=== PATIENT | female | born 1990 | race Caucasian/White ===

== ENCOUNTER 2023-03-25 22:08 | Outpatient (REF) | payer OTHER, MEDICAID, SELFPAY ==
[2023-03-30 18:07] LABS: Age Gdln ACOG Testing Note (.); HPV Aptima Negative (Negative); IGP, Aptima HPV, rfx 16/18,45 Note (.)
== END 2023-03-25 22:09 | disposition home or self-care (01) ==
LOC: LAB 22:08
PROVIDERS: Visit Provider Obstetrics & Gynecology
DX: Z12.4 Encounter for screening for malignant neoplasm of cervix (principal)
CPT/HCPCS: 87624; G0145

== ENCOUNTER 2023-03-31 10:32 | Outpatient (OUT) | payer OTHER, MEDICAID, SELFPAY ==
--- NOTE | 2023-03-31 10:33 | US_ITS ---
The [address] [address] Patient Name: VALE LINDA MRN: [id number] date: 1990 Sex: F Assigned Patient Location: US Current Patient Location: US Accession/Order Number: [id number] Exam Date: 03/31/2023 10:40 Report Date: 03/31/2023 12:46 At the request of: ANDREY JAY Procedure: US pelvis transvaginal EXAM: US pelvis transvaginal INDICATION: ABNORMAL UTERINE BLEEDING. VIEW FOR IUD. N93.9 COMPARISON: No prior pelvic ultrasound available for comparison at the time of this dictation. TECHNIQUE: Transvaginal ultrasound with grayscale, color Doppler and spectral Doppler imaging. FINDINGS: Uterus:8.9 x 5.1 x 4.9 cm. Grossly normal myometrial echotexture. Intrauterine device in satisfactory position. Endometrium:0.8 cm Right ovary: 3.1 x 2.2 x 2.0 cm. Volume: 7.1 cc Left ovary: 3.7 x 3.0 x 1.6cm. Volume: 9.3 cc Normal appearing follicles bilaterally with dominant follicle in the left ovary. Normal color Doppler with arterial/venous spectral tracing to both ovaries. No free fluid in the cul-de-sac. US/US pelvis transvaginal IMPRESSION: 1. IUD in satisfactory position. The pelvic ultrasound is otherwise grossly unremarkable. Electronically authenticated by: KAR CRAFT Date: 03/31/2023 12:46
== END 2023-03-31 10:33 | disposition home or self-care (01) ==
LOC: US 10:32
PROVIDERS: Visit Provider Obstetrics & Gynecology
DX: N93.9 Abnormal uterine and vaginal bleeding, unspecified (principal); Z97.5 Presence of (intrauterine) contraceptive device
CPT/HCPCS: 76830

== ENCOUNTER 2024-03-30 19:51 | Outpatient (REF) | payer MEDICAID, SELFPAY ==
[2024-04-05 12:08] LABS: Age Gdln ACOG Testing Note (.); HPV Aptima Negative (Negative); IGP, Aptima HPV, rfx 16/18,45 Note (.)
== END 2024-03-30 19:52 | disposition home or self-care (01) ==
LOC: LAB 19:51
PROVIDERS: Visit Provider Obstetrics & Gynecology
DX: Z01.419 Encounter for gynecological examination (general) (routine) without abnormal findings (principal)
CPT/HCPCS: 87624; 88175

== ENCOUNTER 2025-06-20 19:14 | Outpatient (REF) | payer MEDICAID, SELFPAY ==
--- OUTSIDE RECORDS SUMMARY | 2025-06-20 19:17 | XMS_ITS | CCD ---
Author Organization [facility] ion Partnership [facility] Care Team Providers Care Electrical Assistant Name Role Phone DO Kemal Davis Attending Provider [phone] Danielito Gregory DO Primary Care Provider Danielito Gregory DO Primary Care Provider ALYSSA MELENDEZ Attending Unavailable ALYSSA MELENDEZ Admitting Unavailable DANIELITO GREGORY Primary Care Unavailabl e BRI, DANIELITO GORE Primary Care Unavailabl e BRI, DANIELITO GORE Primary Care Unavailabl e BRI, DANIELITO GORE Referring Unavailabl e BRI, DANIELITO GORE Primary Care Unavailabl e SUDHEER MCPHERSON Attending Unavailable BRI, DANIELITO GORE Primary Care Unavailabl e SUDHEER MCPHERSON Referring Unavailable ALYSSA MELENDEZ Attending Unavailable BRI, DANIELITO GORE Primary Care Unavailabl e MELENDEZALYSSA Referring Unavailable BRI, DANIELITO GORE Primary Care Unavailabl e ALYSSA MELENDEZ Attending Unavailable BRI, DANIELITO GORE Primary Care Unavailabl e BRI, DANIELITO GORE Primary Care Unavailabl e MELENDEZALYSSA Attending Unavailable MCPHERSONSUDHEER HO Attending Unavailable DANIELITO GREGORY Primary Care Unavailabl e Danielito Gregory DO Primary Care Provider Danielito Gregory MD Primary Care Provider Danielito Gregory DO Primary Care Provider [phone] Danielito Gregory DO Referring Provider Darryn MUSTAFA, Que Kaufman Attending Provider Danielito Gregory Admitting Unavailable Danielito Gregory Attending Unavailable Calderon Webber Referring Unavailable DolCalderon atkins Admitting Unavailable Dolchuck, Calderon Hinton Attending Unavailable Calderon Webber Admitting Unavailable Dolchuck, Calderon Hinton Attending Unavailable Danielito Gregory Referring Unavailable Danielito Gregory Primary Care Unavailable Que Cates Attending Unavailable Que Cates Admitting Unavailable DOLCHUCK, CALDERON Hinton Attending Unavailable DOLCHUCK, CALDERON Hinton Attending Unavailable MAURO GUEVARA Attending Unavailable DOLCHUCK, CALDERON Hinton Attending Unavailable DOLCHUCK, CALDERON Hinton Referring Unavailable DOLCE, CALDERON Hinton Referring Unavailable DOLCE, CALDERON Hinton Attending Unavailable DOLCHUCK, CALDERON Hinton Attending Unavailable DOLCHUCK, CALDERON Hinton Attending Unavailable DOLCHUCK, CALDERON Hinton Attending Unavailable DOLCHUCK, CALDERON Hinton Attending Unavailable DOLCHUCK, CALDERON Hinton Attending Unavailable Danielito Gregory MD Primary Care Provider [phone] Calderon Webber Attending Unavailable Calderon Webber Admitting Unavailable Medications Current Medications MedicationDrug Class(es)DatesSig (Normalized)Sig (Original)fluorouracil 50 mg/ml topical cream (5 sources)Nucleoside Metabolic InhibitorStart: 05-11-2024 End: 26-58-6279RPThuadaaz 40 mg oral capsule (20 sources)Serotonin Reuptake InhibitorStart: 15-18-7267ftgk 1 capsule by mouth once dailyFluoxetine 40 mg capsule Active 40 MG PO Daily August 09, 2024 1:00amStart: 89-25-0994zisg 1 capsule by mouth onceFLUoxetine (PROZAC) 20 mg capsule Take 1 capsule by mouth every afternoon. 02/17/2023 Activetake 1 capsule by mouth in the morningFLUoxetine (PROzac) 20 MG capsule Take 1 capsule by mouth in the morning. ActiveComment on above:Take 1 capsule by mouth every afternoon. levothyroxine sodium 0.2 mg oral tablet (20 sources)l-ThyroxineStart: 07-13-2023 End: 52-28-9798srnh 1 tablet by mouth once dailyLevothyroxine 200 mcg tablet Active 200 MCG PO Daily August 09, 2024 1:00amStart: 03-16-2023 End: 38-96-2199ejltnxfpdshjz (Synthroid, Levoxyl) 175 MCG tablet Take 175 mcg by mouth. 03/16/2023 ActiveComment on above:Take 1 tablet by mouth DAILY (6 AM). methylphenidate hydrochloride 20 mg oral tablet (20 sources)Central Nervous System StimulantStart: 10-19-3709wfjr 1 tablet by mouth once dailyMethylphenidate Hcl 20 mg tablet Active 20 MG PO Daily August 09, 2024 1:00ammethylPREDNISolone 4 mg oral tablet (2 sources)CorticosteroidStart: 04-27-2024 End: 31-00-6442cpbm 1 tablet by mouth oncemethylPREDNISolone (Medrol Dospak) 4 MG tablets Indications: Acute Bursitis Take 1 tablet (4 mg) bymouth 1 (one) time for 1 dose Follow schedule on package instructions 1 each 04/27/2024 04/27/2024 ActivePrenatal Vit-Iron Fum-Folic Ac (1 source)Start: 67-26-3143biuu 1 tablet by mouth once daily before mealtime Vit-Iron Fum-Folic Ac Active 1 TAB PO Daily July 28, 2021 1:00am Completed/Discontinued Medications MedicationDrug Class(es)DatesSig (Normalized)Sig (Original)acetaminophen 325 mg / HYDROcodone bitartrate 5 mg oral tablet (4 sources)Opioid AgonistStart: 01-17-2019 End: 83-33-5479kurj 1 tablet by mouth every six hours as needed for pain Hydrocodone-Acetaminophen ([place]) 5-325 mg tablet Discontinued 1 TAB PO Q6H as needed for pain 2018July 28, 2021 11:34pmBenzocaine (1 source)Standardized Chemical AllergenStart: 03-03-2023 End: 43-61-9998kvxjruhsjq 20% 2 [place] (TOPEX)cholecalciferol 0.125 mg oral tablet (4 sources)Vitamin DStart: 01-17-2019 End: 71-38-9664ysgj 3 tablets by mouth once dailyCholecalciferol (Vitamin D3) (Vitamin D3) 5,000 unit Tablet Discontinued 84362 UNIT PO Daily January 17, 2019 12:00am July 28, 2021 11:34pmdocusate sodium 100 mg oral capsule (8 sources)Start: 07-31-2021 End: 93-48-2060qggi 1 capsule by mouth once dailyDocusate Sodium (Colace) 100 mg Capsule Discontinued 100 MG PO Daily July 31, 2021 1:00am August 09, 2024 6:17pmStart: 10-06-2018 End: 62-01-9514dycd 1 capsule by mouth twice daily as needed for constipation Docusate Sodium (Colace) 100 mg capsule Discontinued 100 MG PO Twice daily as needed for constipation 60 October 06, 2018 7:53am January 17, 2019 1:10pmferrous sulfate 325 mg oral tablet (4 sources)Start: 07-28-2021 End: 67-12-9366frck 1 tablet by mouth once dailyFerrous Sulfate 325 mg (65 mg iron) Tablet Discontinued 1 MG PO Daily July 28, 2021 1:00am August 09, 2024 6:17pmibuprofen 600 mg oral tablet (8 sources)Nonsteroidal Anti-inflammatory DrugStart: 07-31-2021 End: 63-04-1597uguw 1 tablet by mouth every six hours as needed for pain Ibuprofen 600 mg Tablet Discontinued 600 MG PO Q6H as needed for Pain July 31, 2021 1:00amAugust 09, 2024 6:17pmStart: 10-06-2018 End: 55-20-6785rpmg 1 tablet by mouth every six hours as needed for pain Ibuprofen 600 mg tablet Discontinued 600 MG PO Q6H as needed for pain October 06, 2018 1:00am July 28, 2021 11:34pmlidocaine hydrochloride 20 mg/ml mucous membrane topical solution (1 source)Antiarrhythmic, Amide Local AnestheticStart: 03-03-2023 End: 05-61-8656rvrdwqapq viscous 2 % 10 mL (XYLOCAINE)magnesium oxide 400 mg oral tablet (4 sources)Start: 01-17-2019 End: 85-74-4680Zqhxwdvyf Oxide 400 mg magnesium tablet Discontinued TABLET January 17, 2019 12:00am July 28, 2021 11:35pmStart: 01-17-2019 End: 67-39-2896Rwycbzlna Oxide Discontinued TABLET January 17, 2019 12:00am July 28, 2021 11:35pmModified Lanolin (Lanolin (Hpa)) 100 % Cream (4 sources)Start: 07-31-2021 End: 28-50-3706Krjdxbnr Lanolin (Lanolin (Hpa)) 100 % Cream Discontinued 1 APPLIC TOPICAL PRN as needed for Discomfort July 31, 2021 1:00am August 09, 2024 6:17pmStart: 85-73-0916Htabombs Lanolin (Lanolin (Hpa)) 100 % Cream Active 1 APPLIC TOPICAL PRN as needed for Discomfort July 31, 2021 12:00am Start: 11-29-8496Dkywpcib Lanolin (Lanolin (Hpa)) 100 % Cream Active 1 APPLIC TOPICAL PRN July 31, 2021 1:00amPrenatal Vit-Iron Fum-Folic Ac 65 mg iron- 1 mg Tablet (3 sources)Start: 07-28-2021 End: 88-12-3191pegk 1 tablet by mouth once daily before mealtimePrenatal Vit- Iron Fum-Folic Ac 65 mg iron- 1 mg Tablet Discontinued 1 TAB PO Daily July 28, 2021 1:00am August 09, 2024 6:17pmStart: 87-38-1056tsio 1 tablet by mouth once daily before mealtimePrenatal Vit-Iron Fum-Folic Ac 65 mg iron- 1 mg Tablet Active 1 TAB PO Daily July 28, 2021 12:00amtraMADol hydrochloride 50 mg oral tablet (4 sources)Opioid AgonistStart: 10-06-2018 End: 17-18-8715wzhq 1 tablet by mouth every four to six hours as needed for pain Tramadol 50 mg tablet Discontinued 50 MG PO EVERY 4-6 HOURS as needed for pain 01 03October 06, 20181:00am January 17, 2019 1:10pm Problems Active Problems Problem ClassificationProblemDateDocumented DateEpisodic/ChronicAnxiety disorders (14 sources)Anxiety; Translations: [Anxiety disorder, unspecified]Onset: 183965-18-8505MinlgviZgkgnxxse-ikybzoz, conduct, and disruptive behavior disorders (9 sources)Attention deficit hyperactivity disorder; Translations: [Attention- deficit hyperactivity disorder, unspecified type]Onset: ChronicCancer of thyroid (9 sources)Papillary thyroid carcinoma; Translations: [Malignant neoplasm of thyroid gland]Onset: 80-97-3775OdgfrcaAnpialfewshig of surgical procedures or medical care (20 sources)Postoperative hypothyroidism; Translations: [Postprocedural hypothyroidism]Onset: 293692-83-3049HkczmwiMropstexr usually diagnosed in infancy, childhood, or adolescence (4 sources)Attention deficit hyperactivity disorder, predominantly inattentive type; Translations: [Other specified behavioral and emotional disorders with onset usually occurring in childhood and adolescence]56-61-3858MddminzWjzts disorders and dislocations; trauma-related (20 sources)Disorder of right patellofemoral joint; Translations: [Patellofemoral disorders, right knee]Onset: 264076-10-3360Zongcjy Malposition; malpresentation (4 sources)Delivery by section for breech presentation; Translations: [Maternal care for breech presentation, not applicable or unspecified]07-30-2021 EpisodicComment on above:Problem List clean-up per request of Phys. EHR Cmte Neoplasms of unspecified nature or uncertain behavior (1 source)Neoplasm of uncertain behavior of skin; Translations: [Neoplasm of uncertain behavior of skin]08-57-6696MvrehfipQjdnjrkvjqebuz (2 sources)Arthritis of left ankle; Translations: [Primary osteoarthritis, left ankle and foot]45-36-1376ViamfbbBbknx acquired deformities (2 sources)Contracture of joint of left ankle; Translations: [Contracture, left ankle]80-15-4003KsgordpAxurf and unspecified benign neoplasm (1 source)Benign tumor of unknown origin; Translations: [Benign neoplasm, unspecified site]74-11-9960VznithdpWmpib connective tissue disease (3 sources)Pain in left foot; Translations: [Pain in left foot]05-11-2024 EpisodicOther connective tissue disease (15 sources)Nontraumatic rupture of tibialis posterior tendon; Translations: [Spontaneous rupture of other tendons, left ankle and foot]10-29-5162Iiwqwmad Other connective tissue disease (2 sources)Pain in right foot; Translations: [Pain in right foot]04-27-2024 EpisodicOther connective tissue disease (2 sources)Enthesopathy of lower limb; Translations: [Other enthesopathy of left foot and ankle]24-70-7989IwxfiglxWitxj female genital disorders (4 sources)History of past delivery; Translations: [Status post vaginal delivery]37-79-9065AmazhrcdEwqxrdb on above:Problem List clean-up per request of Phys. EHR CmteOther non-traumatic joint disorders (14 sources)Instability of joint of left ankle; Translations: [Other instability, left ankle]00-44-4670VcgmpmaiWapju non-traumatic joint disorders (2 sources)Sinus tarsi syndrome of left ankle; Translations: [Pain in left ankle and joints of left foot]14-19-5327HfofdtqoHaorx nutritional; endocrine; and metabolic disorders (9 sources)Obesity; Translations: [Obesity, unspecified]Onset: 03-06-2023 62-86-9338GqgdrxgSnzky nutritional; endocrine; and metabolic disorders (20 sources)Obese class II; Translations: [Obesity, unspecified]Onset: 356654-92-3655KolpdzoLjvtv nutritional; endocrine; and metabolic disorders (1 source)Body mass index 30+ - obesity; Translations: [Body mass index (BMI) 39.0-39.9, adult]36-40-5174VifkqemRflsp nutritional; endocrine; and metabolic disorders (2 sources)Body mass index (BMI) 39.0-39.9, adult; Translations: [Body Mass Index 39.0-39.9, adult]67-65-5826JthbfnpDbruazcl codes; unclassified (2 sources)Obstructive sleep apnea syndrome; Translations: [Obstructive sleep apnea (adult) (pediatric)]81-63-6647VpqgdtmZesplsld codes; unclassified (4 sources)Obstructive sleep apnea (adult) (pediatric); Translations: [Obstructive sleep apnea (adult)(pediatric)]Onset: hronic Residual codes; unclassified (2 sources)H/O: depression; Translations: [Personal history of other complications of , childbirth and the puerperium]66-00-1836Phptepfp Thyroid disorders (20 sources)Goiter; Translations: [Nontoxic goiter, unspecified]Onset: 832128-67-1163IsmjqwfScqpa infection (1 source)Verruca plantaris; Translations: [Plantar wart]57-64-0086Qvidpclt Past or Other Problems Problem ClassificationProblemDateDocumented DateEpisodic/ChronicImmunizations and screening for infectious disease (2 sources)Patient encounter status; Translations: [Encounter for screening for infections with a predominantly sexual mode of transmission]02-03-0503Zwenfdjg Other upper respiratory infections (20 sources)Sore throat symptom; Translations: [Acute pharyngitis, unspecified] Onset: 430878-06-0269CrqkpwnlMwbw-; endo-; and myocarditis; cardiomyopathy (except that caused by tuberculosis or sexually transmitted disease) (9 sources)Pericarditis; Translations: [Disease of pericardium, unspecified] Onset: 340915-71-6385DukurczdEldpbdv tract infections (20 sources)Urinary tract infectious disease; Translations: [Urinary tract infection, site not specified]Onset: 012350-43-1234Qrupawjp Results Test NameValueInterpretationReference RangeFacilityNonvisit Note - PTon 37-55-3823Aysuhiuf Note - PTNonvisit Note - PT chart reviewed with eval prepped for scheduled eval. KKNoalUniversity Hospitals Health SystemBMPon 15-48-3477Hitfv gap [Moles/Vol]11 mmol/LNormal6-16[facility] Health SystemComment on above:Performed By: #### [id number] #### [facility] [address], [place] [address]Fnjnqsc [Mass/Vol]8.8 mg/dLLow8.9-11.1FParkview HealthComment on above:Performed By: #### [id number] #### [facility] [address], [place] [address]Amkszeph [Moles/Vol]103 mmol/DGmbrcw525-682UsesfrUniversity Hospitals Health SystemComment on above:Performed By: #### [id number] #### [facility] [address], [place] [address]CL7 [Moles/Vol]26 mmol/ELwjozo09-33HffjspUniversity Hospitals Health System Comment on above:Performed By: #### [id number] #### [facility] [address], [place] [address]Icmtuktsmv [Mass/Vol]0.6 mg/dLNormal0.5-1.3FParkview HealthComment on above:Performed By: #### [id number] #### [facility] [address], [place] [address]Tznmctu [Mass/Vol]75 mg/tXYykxfl97-283FokfpzUniversity Hospitals Health SystemComment on above:Performed By: #### [id number] #### [facility] [address], [place] [address]Dnflqzfub [Moles/Vol]4.0 mmol/LNormal3.5-5.3FParkview HealthComment on above:Performed By: #### [id number] #### [facility] [address] [place] [address]Wjlsfy [Moles/Vol]136 mmol/RJkampc368-336IjmpirUniversity Hospitals Health SystemComment on above:Performed By: #### [id number] #### [facility] [address] [place] [address]Akmr nitrogen [Mass/Vol]10 mg/dLNormal5-21[facility] Hospitals Health SystemComment on above:Performed By: #### [id number] #### [facility] [address] [place] [address]Fyep nitrogen/Creatinine [Mass ratio]17 No TkfnsAoffkz55-64 [facility]als Health SystemComment on above:Performed By: #### [id number] #### [facility] [address] [place] [address]30[address]SQT w/ Auto Diffon 95-54-4222Lfdhmtpdk/100 WBC (Bld)0.2 %Normal 0.0-2.0[facility]delet HealthComment on above:Performed By: #### [id number] #### [facility] [address] [place] [address]28[address]Ewqxlloiq/Leukocytes Auto (Bld) [Pure # fraction]0.0 E9/LNormal 0.0-0.2FParkview HealthComment on above:Performed By: #### [id number] #### [facility] [address] [place] [address] 365[address]Cvygwuczudr (Bld) [#/Vol]0.2 E9/LNormal0.0-0.5FParkview HealthComment on above:Performed By: #### [id number] #### [facility] [address] [place] [address] 370[address]Rrzucfasrhk/100 WBC (Bld)3.0 %Normal0.0-8.0[facility]als Health SystemComment on above:Performed By: #### [id number] #### [facility] [address] [place] [address] 84[address]Gtzlmgsawzf distribution width (RBC) [Ratio]13.7 %Normal 10.9-14.2NOMS HealthcareComment on above:Performed By: #### [id number] #### [facility] [address] [place] [address]Buaffklbue (Bld) [Volume fraction]38.8 %Ysaikr34.0-46.0NOMS HealthcareComment on above:Performed By: #### [id number] #### [facility] [address] [place] [address] 27[address]Ypkxzogpse (Bld) [Mass/Vol]12.9 g/hDExidps01.0-16.0[facility] Health SystemComment on above:Performed By: #### [id number] #### [facility] [address] [place] [address]Wdvzsuhebpf (Bld) [#/Vol]2.1 E9/LNormal1.0-4.0[facility] Health SystemComment on above:Performed By: #### [id number] #### [facility] [address] [place] [address] 238[address]Vlrkfdofhil/100 WBC (Bld)32.6 %Pkqjpt79.0-50.0[facility] Comment on above:Performed By: #### [id number] #### [facility] [address] [place] [address] 41093QYM (RBC) [Entitic mass]28.2 tdRykcgt87.0-34.0[facility] Health SystemComment on above:Performed By: #### [id number] #### [facility] [address], [place] [address]JENG (RBC) [Mass/Vol]33.3 g/oUQafkbc21.4-36.0[facility] Health SystemComment on above:Performed By: #### [id number] #### [facility] [address] [place] [address] 37681VLW (RBC) [Entitic vol]84.7 yEVljpis51.0-100.0[facility] Health SystemComment on above:Performed By: #### [id number] #### [facility] [address] [place] [address]74[address]Typvjbqzv (Bld) [#/Vol]0.5 E9/LNormal0.2-1.0[facility] Health SystemComment on above:Performed By: #### [id number] #### [facility] [address] [place] [address]Vaprsffdpqh (Bld) [#/Vol]3.5 E9/LNormal2.0-7.5FParkview HealthComment on above:Performed By: #### [id number] #### [facility] [address] [place] [address] 68[address]Bhdfzemistj/100 WBC (Bld)55.9 %Jqqpsd03.0-75.0[facility] Comment on above:Performed By: #### [id number] #### [facility] [address] [place] [address] 179[address]Egbrcqfs279.0 E9/YSyklqz258.0-500.0[facility] Comment on above:Performed By: #### [id number] #### [facility] [address], [place] [address]Jitqwder mean volume (Bld) [Entitic vol]9.1 fLNormal6.4-10.8 NOM[facility] HealthcareComment on above:Performed By: #### [id number] #### [facility] [address] [place] [address] 40760WMU (Bld) [#/Vol]4.6 E12/LNormal4.3-5.9[facility] Health SystemComment on above:Performed By: #### [id number] #### [facility] [address], [place] [address]RBK corrected for nucl RBC Auto (Bld) [#/Vol]6.3 E9/LNormal 4.0-11.0[facility] Health SystemComment on above:Performed By: #### [id number] #### [facility] [address], [place] [address]NPRS CBC W/ AUTO DIFFon 33-28-5213BVJAUVMPDCR/100 LEUKOCYTES:NFR:PT:BLD:QN:AUTOMATED COUNT3 %0.0 - 8.0 %[facility] EOSINOPHILS:NCNC:PT:BLD:QN:0.2[facility] BASOPHILS/LEUKOCYTES:NFR.DF:PT:BLD:QN:AUTOMATED OOFRB4WRLUSaint Luke's Hospital ERYTHROCYTE MEAN CORPUSCULAR HEMOGLOBIN CONCENTRATION:MCNC:PT:RBC:QN33.3[facility] ERYTHROCYTE MEAN CORPUSCULAR HEMOGLOBIN:ENTMASS:PT:RBC:QN28.2 pg 27.0 - 34.0 pgSaint Luke's Hospital ERYTHROCYTE MEAN CORPUSCULAR VOLUME:ENTVOL:PT:RBC:QN:AUTOMATED COUNT84.7 fL80.0 - 100.0 fLSaint Luke's Hospital ERYTHROCYTES:NCNC:PT:BLD:QN:AUTOMATED COUNT4.6[facility]OC[facility] HEMOGLOBIN:MCNC:PT:BLD:QN:12.9[facility]OC[facility] LEUKOCYTES6.3NOOhioHealth [facility] MONOCYTES:NCNC:PT:BLD:QN:AUTOMATED COUNT0.5[facility] NEUTROPHILS:NCNC:PT:BLD:QN:AUTOMATED COUNT3.5[facility] LYMPHOCYTES:NCNC:PT:BLD:QN:2.1[facility] HealthcarePlatelets (Bld) [#/Vol]251 10*3/uL [facility] HealthcareOriginal Ordering Provider: JAM Sidhu HealthcareeGFRon 44-31-4014hQER812 mL/min/1.73 w8Idnliu>=59[facility] Health SystemComment on above:Performed By: #### [id number] #### [facility] [address] [place], [place] [address]TMV ANKLE W/O CONTRAST LEFTon 05-26-2024 Exam Date/Time: 05/24/2024 12:21 EDT Reason for Exam: [id number] Report IMPRESSION: PARTIAL-THICKNESS TEAR OF TIBIALIS POSTERIOR TENDON. DEGENERATIVE CHANGES OF THE TIBIOTALAR JOINT EXAM: MRI Ankle w/o Contrast Left HISTORY: Ankle pain. Ankle fracture in 2019 TECHNIQUE: Multisequence multiplanar MRI of the ankle was performed without contrast COMPARISON: None available FINDINGS: Achilles tendon is intact. The visualized plantar fascia is intact and is without thickening or nodularity. Partial-thickness tear of tibialis posterior tendon for length of approximately 1.5 cm appears to involve up to 50% thickness of the tendon and is centered at the level of the neck of the talus. Mild adjacent soft tissue edema. The flexor hallucis longus and flexor digitorum longus tendons are intact. No space-occupying lesion within the tarsal tunnel. Peroneus longus and peroneus brevis tendons are intact. Extensor tendons are intact. The anterior and posterior tibiofibular ligaments, anterior and posterior talofibular ligaments, and calcaneofibular ligament are intact. Superficial and deep fibers of the deltoid ligament are intact. Spring ligament is intact. Sinus tarsi fat is preserved. There are tiny full-thickness cartilage defects of the medial tibial plafond with formation of tiny subcortical cysts and mild subcortical bone marrow edema. Tiny subcortical cysts of the lateral aspect of the medial talar dome likely secondary to occult full-thickness cartilage fissure. No ankle joint effusion. No evidence of fracture or stress reaction of the visualized bones. Report Ordering Provider: Calderon Webber FINAL REPORT Dictated: 05/26/2024 2:03 pm Mike Ruiz DO Signed (Electronic Signature): 05/26/2024 2:03 pm Signed by: Mike Ruiz DO Transcribed by: CRISTHIAN Technologist: ALVIN Technical Comments NoneFTMCRadiology, Radiologist, - 05/26/2024 Exam Date/Time: 05/24/2024 12:21 EDT Reason for Exam: [id number] Report IMPRESSION: PARTIAL-THICKNESS TEAR OF TIBIALIS POSTERIOR TENDON. DEGENERATIVE CHANGES OF THE TIBIOTALAR JOINT EXAM: MRI Ankle w/o Contrast Left HISTORY: Ankle pain. Ankle fracture in 2019 TECHNIQUE: Multisequence multiplanar MRI of the ankle was performed without contrast COMPARISON: None available FINDINGS: Achilles tendon is intact. The visualized plantar fascia is intact and is without thickening or nodularity. Partial-thickness tear of tibialis posterior tendon for length of approximately 1.5 cm appears to involve up to 50% thickness of the tendon and is centered at the level of the neck of the talus. Mild adjacent soft tissue edema. The flexor hallucis longus and flexor digitorum longus tendons are intact. No space-occupying lesion within the tarsal tunnel. Peroneus longus and peroneus brevis tendons are intact. Extensor tendons are intact. The anterior and posterior tibiofibular ligaments, anterior and posterior talofibular ligaments, and calcaneofibular ligament are intact. Superficial and deep fibers of the deltoid ligament are intact. Spring ligament is intact. Sinus tarsi fat is preserved. There are tiny full-thickness cartilage defects of the medial tibial plafond with formation of tiny subcortical cysts and mild subcortical bone marrow edema. Tiny subcortical cysts of the lateral aspect of the medial talar dome likely secondary to occult full-thickness cartilage fissure. No ankle joint effusion. No evidence of fracture or stress reaction of the visualized bones. Report Ordering Provider: Calderon Webber FINAL REPORT Dictated: 05/26/2024 2:03 pm Mike Ruiz DO Signed (Electronic Signature): 05/26/2024 2:03 pm Signed by: Mike Ruiz DO Transcribed by: CRISTHIAN Technologist: ALVIN Technical Comments None [facility] CenterMRI [facility] W/O CONTRAST LEFTOrdered By: Radiologist Radiology on [id number] [employer] Work Phone: MRI Ankle w/o Contrast Lefton [id number] Ankle w/o Contrast LeftExam Date/Time: 05/24/2024 12:21 EDT Reason for Exam: [id number] Report IMPRESSION: PARTIAL-THICKNESS TEAR OF TIBIALIS POSTERIOR TENDON. DEGENERATIVE CHANGES OF THE TIBIOTALAR JOINT EXAM: MRI Ankle w/o Contrast Left HISTORY: Ankle pain. Ankle fracture in 2019 TECHNIQUE: Multisequence multiplanar MRI of the ankle was performed without contrast COMPARISON: None available FINDINGS: Achilles tendon is intact. The visualized plantar fascia is intact and is without thickening or nodularity. Partial-thickness tear of tibialis posterior tendon for length of approximately 1.5 cm appears to involve up to 50% thickness of the tendon and is centered at the level of the neck of the talus. Mild adjacent soft tissue edema. The flexor hallucis longus and flexor digitorum longus tendons are intact. No space-occupying lesion within the tarsal tunnel. Peroneus longus and peroneus brevis tendons are intact. Extensor tendons are intact. The anterior and posterior tibiofibular ligaments, anterior and posterior talofibular ligaments, and calcaneofibular ligament are intact. Superficial and deep fibers of the deltoid ligament are intact. Spring ligament is intact. Sinus tarsi fat is preserved. There are tiny full-thickness cartilage defects of the medial tibial plafond with formation of tiny subcortical cysts and mild subcortical bone marrow edema. Tiny subcortical cysts of the lateral aspect of the medial talar dome likely secondary to occult full-thickness cartilage fissure. No ankle joint effusion. No evidence of fracture or stress reaction of the visualized bones. Report Ordering Provider: Calderon Webber FINAL REPORT Dictated: 05/26/2024 2:03 pm Mike Ruiz DO Signed (Electronic Signature): 05/26/2024 2:03 pm Signed by: Mike Ruiz DO Transcribed by: CRISTHIAN Technologist: ALVIN Technical Comments NoneNormalFishBrook Lane Psychiatric CenterMRI ANKLE W/O CONTRAST LEFTon 05-24-2024 Radiology Study observation (narrative)[facility] HealthcareXR Ankle - left 3 Viewson [id number] Result: Radiographs: AP/MO/LAT: Three views were taken today AP/MORT/LAT Ankle: No fractures or dislocations seen mild degenerative arthritis noted of the left ankle.[facility] HealthcareRadiology Study observation (narrative) [facility] HealthcareIGP,APTIMA HPV,AGE GDLNon [id number] GDLN ACOG TESTINGNote. [facility] HealthcareComment on above:TESTS RESULT FLAG UNITS REF RANGE LAB Clinician Provided Cytology Information Source.............Cervix;Endocervix No. of containers..01 ThinPrep Vial Age Danielo ACOG Ashley... 30-65 01 FLAG LEGEND: L-Low Normal,H-High Normal,LL-Alert Low,HH-Alert High <-Panic Low,>-Panic High,A-Abnormal,AA-Critical Abnormal Performed at: 01 =G [address] [address] Hailey Weston MD, HPV APTIMANegativeNegativeNOMS HealthcareComment on above:This nucleic acid amplification test detects fourteen high- risk HPV types (16,18,31,33,35,39,45,51,52,56,58,59,66,68) without differentiation. Performed at: = - [address] [id number] Cut And Cover Line Worker: Hailey Weston MD, Phone: [phone] Performed at: [address] [id number] [employer] Line Worker: Hailey Weston MD, Phone: [phone] IGP, APTIMA HPV, RFX 16/18,45Note.NOMS HealthcareComment on above:TESTS RESULT FLAG UNITS REF RANGE LAB DIAGNOSIS: 02 NEGATIVE FOR INTRAEPITHELIAL LESION OR MALIGNANCY. Specimen adequacy: 02 Satisfactory for evaluation. No endocervical component is identified. Performed by: 02 Rich German Radiation Therapist (ASC) . 02 Note: Note 02 The Pap smear is a screening test designed to aid in the detection of premalignant and malignant conditions of the uterine cervix. It is not a diagnostic procedure and should not be used as the sole means of detecting cervical cancer. Both false-positive and false-negative reports do occur. Test Methodology: Note 02 This liquid based ThinPrep(R) pap test was screened with the use of an image guided system. HPV Genotype Reflex Note 02 Criteria not met, HPV Genotype not performed. FLAG LEGEND: L-Low Normal,H-High Normal,LL-Alert Low,HH-Alert High <-Panic Low,>-Panic High,A-Abnormal,AA-Critical Abnormal Performed at: [address] [address] Hailey Weston MD, BRUSH-SPATULA CERVIX ENDOCERVIX CLINISYNCNOMS HealthcareURETHRITIS/DISCHARGE PLUS VAGINITIS (HTRX)on 03-31-2024 ATOPOBIUM VAGINAE0.000NOMS HealthcareATOPOBIUM VAGINAENot detectedNOMS HealthcareBVAB 2,3 (BACTERIAL VAGINOSIS ASSOCIATED BACTERIA 2, 3); MOBILUNCUS SPP25.544AbnormalNOMS HealthcareBVAB 2,3 (BACTERIAL VAGINOSIS ASSOCIATED BACTERIA 2, 3); MOBILUNCUS SPPDetectedAbnormalNOMS HealthcareCANDIDA ALBICANS, PARAPSILOSIS, TROPICALIS0.000NOMS HealthcareCANDIDA ALBICANS, PARAPSILOSIS, TROPICALISNot detectedNOMS HealthcareCANDIDA GLABRATA0.000NOMS HealthcareCANDIDA GLABRATANot detectedNOMS HealthcareCANDIDA KRUSEI0.000NOMS HealthcareCANDIDA KRUSEINot detectedNOMS HealthcareCHLAMYDIA TRACHOMATIS0.000[facility] Healthcare CHLAMYDIA TRACHOMATISNot detectedNOMS HealthcareGARDNERELLA VAGINALIS0.000NOMS HealthcareGARDNERELLA VAGINALISNot detectedNOMS HealthcareInterpretation and review of laboratory resultsAbnormalNOMS HealthcareMEGASPHAERA (TYPES 1, 2)0.000 NOMS HealthcareMEGASPHAERA (TYPES 1, 2)Not detectedNOMS HealthcareMYCOPLASMA GENITALIUM0.000NOMS HealthcareMYCOPLASMA GENITALIUMNot detectedNOMS Healthcare NEISSERIA GONORRHOEAE0.000NOMS HealthcareNEISSERIA GONORRHOEAENot detectedNOMS HealthcareTRICHOMONAS VAGINALIS0.000NOMS HealthcareTRICHOMONAS VAGINALISNot detectedNOMS HealthcareNOMS HealthcareXR Chest 2 Viewson [id number] Chest 2 ViewsExam Date/Time: 02/16/2024 15:02 EDT Reason for Exam: R07.9 Report IMPRESSION: NO EVIDENCE OF ACTIVE CHEST DISEASE. CLINICAL HISTORY: R07.9. Chest burning sensation. COMPARISON: 10/12/2002. COMMENT: The heart is normal in size. The mediastinum is unremarkable. The lungs appear clear. No infiltration nor pleural effusion is evident. Bilateral infiltrative changes present on the prior exam have resolved. Ordering Provider: Danielito Gregory FINAL REPORT Dictated: 02/17/2024 2:49 pm Solomon Brooks M.D. Signed (Electronic Signature): 02/17/2024 2:49 pm Signed by: Solomon Brooks M.D. Transcribed by: CRISTHIAN Technologist: GAUTAM Technical Comments Radiation Dose: kike Barrett in mGy = . DAP = .NormalFisher [facility] SerPl-aCncon [id number] Qn2.580 m[IU]/LNormal0.270-4.200[facility] HospitalComkalamazoo psychiatric hospital on above:Order Comment: Specimen Type: BLOOD SPECIMENOrdering Facility: [facility] Address[address] [place], [place] [address]Jyiume Comment: If the patient is , TSH reference range varies by gestational period: First Trimester (weeks 9-12): 0.180-2.990 mIU/L Second Trimester: 0.110-3.980 mIU/L Third Trimester: 0.480-4.710 mIU/L Minor Izquierdo et al. A Practical Approach for the Verifications and Determination of Site- and Trimester-Specific Reference Intervals for Thyroid Function tests in . Thyroid, 2019:29:3:412-420.Vaughn Seaman, et al. 2017 Guidelines of the [place] Thyroid Association for the Diagnosis and Management of Thyroid Disease during and the . Thyroid, 2017:27:3:315-389. Performed By: #### 3016-3 ####[facility] LABCLIA [id number] [facility]STVMUW[place] [address] [place] Heart and Vascular Office/Clinic Noteon [id number] and Vascular Office/Clinic NoteHistory of Present Illness The patient is a very pleasant 33-year-old moderately obese nondiabetic, nonsmoking female with pre-eclampsia with her last child about a year and three months prior to our initial visit, with no previous known coronary artery disease and no family history of premature coronary disease who has beenfeeling unwell for the week or two prior to our first visit with upper respiratory tract infection,runny nose, cough, and decreased p.o. intake. The patient felt horrible on the day of admission which was 10/06/2022, to be certain that she did not have and tried to get an appointment with her primary care physician and her primary care physician referred her to the Emergency Room for chest pain. In itial EKG in the Emergency Room demonstrated sinus tachycardia with J point and ST elevation in lead I and aVL with reciprocal inferior ST segment depression. Second EKG demonstrated similar ST segment elevation and troponin of 2700. To be certain that the patient did not have acute coronary syndrome as a result of scad she was brought to the [facility] on 10/06/2022 with the following results: 1. Angiographically normal coronary arteries except for minimal disease in a very small obtuse marginal #1 vessel. 2. Hyperdynamic left ventricular function with an ejection fraction of 70-75%. 3. Normal left ventricular end-diastolic pressure of 9. [1] In addition she underwent a 2D echo with Doppler on 10/07/2022 with the following results: (10/07/2022 11:53 EST Echo Transthoracic Complete) Interpretation Summary Normal LV and RV. No significant valve disease. Normal estimated PA pressure. Normal diastolic filling pattern. Small pericardial effusion with no tamponade. [2] It was determined the patient had pericarditis and was treated medically and she is now here in follow-up. Patient was treated with ibuprofen and colchicine but soon after that return to the emergency room with significant nausea and vomiting apparently underwent an EGD which demonstrated some gastritis. Her ibuprofen was discontinued but she has remained on colchicine. In addition she was found to have pneumonia and treated with methylprednisolone but this has been discontinued. Her chest painis completely resolved. She is no longer on Cardizem or metoprolol or prednisone. Patient was foundto have 2 nodules on her thyroid, 1 of which may be cancerous and she is going to see a surgeon next week. She is unaware of her tachycardia. In our office today's blood pressure is 119/80 and pulse is 105 and regular. Physical exam is as below. Review of Systems Constitutional: no fever, no chills, no weakness, no fatigue Respiratory: no shortness of breath, no cough, no orthopnea, no wheezing Cardiovascular: no chest pain, no palpitations, no edema Neuro: no dizziness no light headed no syncope Additional ROS info: Except as noted in the above Review of Systems and in the History of Present Illness all other systems have been reviewed and are negative or noncontributory. Physical Exam General: alert, no acute distress Neck: Supple, noJVD nocarotid bruit Cardiovascular: regular rate and rhythm, no murmur normal peripheral perfusion Respiratory: Lungs CTA, respirations non labored Extremities: no edema Neurological: oriented x 4, LOC appropriate for age, sensation equal & normal bilaterally, speech normal Skin: Warm, dry, intact- no rash or concerning lesions Follow-up No qualifying data available Problem List/Past Medical History Ongoing ADHD Depression Enlarged thyroid Obesity Historical Procedure/Surgical History Cardiac catheterization, left heart (10/06/2022), Thyroid gland operation (01/17/2019), Extraction of wisdom tooth (2014). 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 Substance abuse in household: No. Smoker in household: No. Injuries/Abuse/Neglect in household: No. Feels unsafe at home: No. Safe place to go: Yes. Agency(s)/Others notified: No. Family/Friends available for support: Yes. Concern for family members at home: No. Major illness in household: No. Financial concerns: No., 08/24/2016 Nutrition/Health - No Risk, 08/24/2016 Sexual Sexually active: Yes., 08/24/2016 Substance Abuse - Denies Substance Abuse, 08/22/2016 Household substance abuse concerns: No., 01/26/2019 Tobacco - Denies Tobacco Use, 08/22/2016 Never (less than 100 in lifetime) Tobacco Use (more content not included)... [facility] HospitalComment on above:Result Comment: Electronically Signed By: STU MUSTAFA, Edward Tinajero Comment: Probable no show.TSH SerPl-aCncon [id number] Qn9.110 m[IU]/LHigh0.270-4.200[facility] City HospitalComment on above:Order Comment: Specimen Type: BLOOD SPECIMENOrdering Facility: [facility] Address:[place], [place] [address]Illfvn Comment: If the patient is , TSH reference range varies by gestational period: First Trimester (weeks 9-12): 0.180-2.990 mIU/L Second Trimester: 0.110-3.980 mIU/L Third Trimester: 0.480-4.710 mIU/L Minor Izquierdo et al. A Practical Approach for the Verifications and Determination of Site- and Trimester-Specific Reference Intervals for Thyroid Function tests in . Thyroid, 2019:29:3:412-420.Vaughn Seaman, et al. 2017 Guidelines of the [place] Thyroid Association for the Diagnosis and Management of Thyroid Disease during and the . Thyroid, 2017:27:3:315-389. Performed By: #### 3016-3 ####[facility] LABCLIA [id number] [address] [address] [facility] CENTERYessica [id number] (ENSUMN) LAKEISHA LINDA ([id number]) 1990 F [place] Date Time Provider Department 03/27/23 ALYSSA MELENDEZ During your visit today, we recorded the following information about you: Paulie Velez RN 03/27/2023 2:33 PM Signed Called patient to follow up after Completion of left thyroid lobectomy with Dr. Melendez on 03/16/23. Incision is dry, taught pt how to remove steristrip. She still has the sweating and feeling warm. Reminded of post-op follow-up. Lab requisition for post-op TSH mailed to pt. Pt was thankful for the call. Paulie Velez RN Allergies As of Date: 03/27/2023 (No Known Allergies) Date Reviewed: 03/16/2023 Reviewed by: Hilda Phillips RN - Fully Assessed Reason for Visit: Post Op [174] Prescriptions as of 03/27/2023 - levothyroxine (SYNTHROID) 175 mcg tablet Take 1 tablet by mouth DAILY (6 AM). - FLUoxetine (PROZAC) 20 mg capsule Take 1 capsule by mouth every afternoon. - methylphenidate (RITALIN) 20 mg tablet Problem List As Of Date 03/27/2023 Noted Resolved Pericarditis [I31.9] 03/06/2023 ADHD [F90.9] 03/06/2023 Anxiety [F41.9] 03/06/2023 Obesity [E66.9] 03/06/2023 Obesity, Class II, BMI 35-39.9 [E66.9] 03/16/2023 Encounter Status:Closed by PAULIE VELEZ on 03/27/23NoalCTwin City [facility] Cytology Cervical or vaginal smear or scraping studyon [id number] Calcium SerPl-mCncon [id number] [Mass/Vol]8.9 mg/dLNormal8.5-10.2 [facility] CompanyComment on above:Order Comment: Specimen Type: BLOOD SPECIMEN [facility]ing Facility: [facility] Address: [address] [place], [place] [address]Performed By: #### 61343-1 #### [facility] CENTERIA [id number] [address] [place] [address] [place] AMERICAP[place]-Intact SerPl-mCncon [id number].intact [Mass/Vol]21 pg/xBTxqahw12-93Wbxzdinik [facility] Comment on above:Order Comment: Specimen Type: BLOOD SPECIMEN [facility] Facility: [facility] Address: [address] [place], [place] [address]Performed By: #### 2731-8 #### [facility] CENTERIA [id number] [address] [place] [address] [place] POSTPROC EVALon [id number] POSTPROC EVALHNO ID: [id number] Author: Alexi Thomas MD Service: Anesthesiology Author Type: Anesthesiologist Type: Anesthesia Postprocedure Evaluation Filed: 03/16/2023 3:29 PM Note Text: POST ANESTHESIA EVALUATION NOTE : 1990 Procedure Summary Date: 03/16/23 Room / Location: OR / OR Anesthesia Start: 1215 Anesthesia Stop: 1321 Procedure: THYROIDECTOMY COMPLETE FOLLOWING PARTIAL REMOVAL (Left: Thyroid) Diagnosis: Papillary thyroid carcinoma (HCC) Malignant neoplasm of thyroid gland (HCC) (Papillary thyroid carcinoma (HCC) [C73]) (Malignant neoplasm of thyroid gland (HCC) [C73]) Surgeons: Alyssa Melendez MD Responsible Provider: Alexi Thomas MD Anesthesia Type: general ASA Status: 3 Anesthesia Type: general Airway Type: ETT Last Vitals Vitals Value Taken Time BP 135/84 03/16/23 1515 Temp 36.4 ?C (97.6 ?F) 03/16/23 1328 Pulse 109 03/16/23 1529 Resp 16 03/16/23 1529 SpO2 95 % 03/16/23 1529 Vitals shown include unvalidated device data. Post Anesthesia Patient Status Patient Evaluation: PACU. PACU/ICU Patient Condition: stable. Anticipated Disposition: inpatient floor planned admission. Neurological Status: aware and responsive. Pulmonary Status: breathing comfortably on room air Airway Control: returned to baseline unsupported. Cardiovascular Status: stable. Pain Management: clinically adequate - multimodal analgesia pain management approach Postoperative Hydration: acceptable. Intraoperative Events: no significant anesthesia events Recommendation: continue current plan of care and further care per PACU/ICU/floor team. Anesthesia Observations No Documentation SIGNATURE: Alexi Thomas MD PATIENT NAME: Lakeisha Linda DATE: March 16, 2023 TIME: 3:29 PM CSN: [id number] Health [facility] PRE-OPon [id number] PRE-OPHNO ID: [id number] Author: Alexi Thomas MD Service: Anesthesiology Author Type: Anesthesiologist Type: Anesthesia Preprocedure Evaluation Filed: 03/16/2023 10:40 AM Note Text: ANESTHESIOLOGY DAY OF SURGERY NOTE : 1990 Procedure Information Date/Time: 03/16/23 1205 Procedure: THYROIDECTOMY COMPLETE FOLLOWING PARTIAL REMOVAL (Left: Thyroid) Location: MM OR05 / MM OR Surgeons: Alyssa Melendez MD Estimated body mass index is 38.25 kg/m? as calculated from the following: Height as of 03/03/23: 175.3 cm (5' 9 ). Weight as of 03/03/23: 117.5 kg (259 lb). Most recent hematocrit and potassium results: Hematocrit 39.4 02/12/2023 Potassium 3.4 02/12/2023 Relevant Problems No relevant active problems I - PHYSICAL EVALUATION AIRWAY Patient intubated: No. Tracheostomy tube not present Mallampati: II. TM distance: >3 FB. Neck ROM: full ROM without neurological symptoms. Mouth opening: adequate. Short neck: no. Thick neck: no DENTAL Dental findings: teeth intact. Additional exam findings: no II - ANESTHESIA PLAN ASA Score: 3 Anesthetic Plan: general Airway type: ETT NPO Status: adequate Beta Earnest Monitoring Plan Monitoring plan: Standard ASA. Post Procedure Analgesic Plan Postoperative analgesic plan: parenteral or oral opioids and multimodal analgesia. Informed Consent Anesthetic risks, benefits, alternatives, personnel and consent discussed: yes. Patient / Responsible Republican agrees to proceed: yes Patient / Surrogate agrees to blood products: yes DNR status not reviewed with patient and/or family prior to surgery. Significant changes in the patient condition since the History and Physical, not otherwise documented in primary service progress note: no. Potential Anesthesia issues that may suggest increased risk of complications or contraindication to planned procedure: none. No vitals data found for the desired time range. No current facility-administered medications on file as of 03/16/2023. No current outpatient medications on file as of 03/16/2023. I have interviewed and examined the patient. I have reviewed the medical record and/or the pre-anesthesia evaluation, pertinent labs, and test results. This contains updated information obtained within 48 hours of Surgery/Procedure. SIGNATURE: Alexi Thomas MD PATIENT NAME: Lakeisha Linda DATE: March 16, 2023 TIME: 10:38 AM CSN: [id number]e Hospital OP NOTon 03-16-2023 BRIEF OP NOTHNO ID: [id number] Author: Alex Jiang MD Service: Endocrine Surgery Author Type: Physician Type: Brief Op Note Filed: 03/16/2023 1:24 PM Note Text: GENERAL SURGERY BRIEF OP NOTE LOG ID: [id number] Surgery/Procedure Date: 03/16/2023 Incision/Procedure Start Time: 12:31 PM Incision Close/Procedure End Time: 1:19 PM Surgeon(s) and Boiler Erector(s): Surgeon(s) and Role: * Alyssa Melendez MD - Primary * Alex Jiang MD - Fellow No Additional Staff Procedure(s): Procedure(s): THYROIDECTOMY COMPLETE FOLLOWING PARTIAL REMOVAL Anesthesia: General Findings: Left thyroid nodule. Absent right thyroid lobe. Please see operative report for full details Drains: None IV Fluids: Per anesthesia report Estimated Blood Loss: 10 mls Estimated Urine Output: Per anesthesia report Specimens: ID Type Source Tests Collected by Time Destination A : Tissue THYROID LOBE LEFT SURGICAL PATHOLOGY Alyssa Melendez MD 03/16/2023 1:04 PM Wound Classification: Class 1, operative wound clean, non-traumatic, with no inflammation encountered, no break in technique, gastrointestinal and genitor-urinary tracts not entered Complications: None Pre-Op/Pre-Procedure Diagnosis: Pre-Op Diagnosis Codes: * Papillary thyroid carcinoma (HCC) [C73] * Malignant neoplasm of thyroid gland (HCC) [C73] Post-Op/Post-Procedure Diagnosis: Same SIGNATURE: Alex Jiang MD PATIENT NAME: Lakeisha Linda DATE: March 16, 2023 TIME: 1:22 PM PAGER/CONTACT #: [phone] From 6pm to 6 am and on weekends, please page general surgery on-call [id number] Clinic Mentor HospitalOPERATIVE NOon [id number] NOO ID: [id number] Author: Alyssa Melendez MD Service: Endocrine Surgery Author Type: Physician Type: Operative Report Filed: 03/17/2023 8:28 AM Note Text: [facility] - Operative Report LAKEISHA LINDA : 1990 AGE: 33. SEX: F PATIENT TYPE: A HOSP SVC: ENDOCRINE AVITIA LOCATION: [facility] ATTENDING PHYSICIAN: Alyssa Melendez MD CSN NUMBER: [id number] DATE OF SURGERY/PROCEDURE: 03/16/2023 INCISION/PROCEDURE START TIME: 12:31 p.m. INCISION CLOSE/PROCEDURE END TIME: 1:19 p.m. PREOPERATIVE DIAGNOSIS: Papillary thyroid carcinoma. POSTOPERATIVE DIAGNOSIS: Papillary thyroid carcinoma. SURGEON: Alyssa Melendez MD SUPERINTENDENT PLANT: Alex Jiang MD SURGERY/PROCEDURE: Completion of left thyroid lobectomy and intraoperative neck ultrasound. ANESTHESIA: General. OPERATIVE INDICATION: The patient is a 33-year-old female who underwent a right thyroid lobectomy and isthmectomy in 2019. The final pathology revealed papillary thyroid carcinoma. The remaining left thyroid gland has a nodule that revealed atypia of undetermined significance. She is being taken to the operating room for a completion of left thyroid lobectomy. The indications, risks, benefits, and alternatives of the above procedures were reviewed with the patient, who gave an informed consent to proceed. OPERATIVE FINDINGS: Intraoperative neck ultrasound revealed surgical absence of the right thyroid gland. The left thyroid gland was normal in size and contained a complex nodule measuring approximately 1.4 cm. There was also a subcentimeter cyst. No abnormal central or jugular lymphadenopathy was appreciated on ultrasound. The images were electronically archived. A completion left thyroidectomy was performed. The left thyroid lobe was sent to Pathology for permanent examination. The left recurrent laryngeal nerve was clearly seen in its normal path in the tracheoesophageal groove. It was of small caliber in size and fully protected along its visible path. The left upper and left lower parathyroid glands were identified and preserved. There was no abnormal cervical lymphadenopathy. The patient tolerated the procedure well. DESCRIPTION OF PROCEDURE: The patient was taken to the operating room and placed supine on the operating table. After induction of general endotracheal anesthesia, a beanbag support was used to elevate the thoracic spine. Intraoperative neck ultrasound was performed using an ultrasound machine with a small parts transducer. The findings were as noted above. The neck was sterilely prepped and draped. The neck was entered through the previous incision. This was deepened through the subcutaneous tissue and platysma with electrocautery. Superior and inferior subplatysmal flaps were raised. The strap muscles were divided longitudinally in the midline of the neck and on the left side of the neck. The strap muscles were from one another and from the anterior surface of the left thyroid gland. Inferior and superior borders of the thyroid isthmus were dissected. Using a harmonic scalpel, individual branches of the inferior thyroid artery and vein were ligated as they entered the gland. The middle thyroid vein branch as well as individual branches of the superior thyroid artery and vein were all ligated, as they entered the gland. This allowed the left lobe to be exteriorized through incision and medially rotated. The left recurrent laryngeal nerve was identified in the tracheoesophageal groove. The vessels in the ligament of Llanes were divided. The remaining attachments between the thyroid and trachea were divided with electrocautery. The wound was then irrigated and checked for hemostasis. The strap muscles were closed with individual layers of 4-0 Vicryl suture. The platysma was similarly approximated. The skin was approximated with a running 3-0 Prolene suture. The skin was sealed with an adhesive and steristrips, and the Prolene was removed. The patient tolerated the procedure well. The patient was taken to the recovery room, extubated, and in good condition. Dr. Melendez served as primary and co-surgeon and scrubbed from skin incision to completion of skin closure. There was no qualified resident available to help with this case, and Dr. Jiang was asked to serve as web press operator assistant. During the course of the dissection, the web press operator assistant assisted with thyroid mobilization, vascular isolation, and division. ESTIMATED BLOOD LOSS: Minimal. DRAINS: None. SPECIMENS: Sent to pathology, left thyroid lobe. COUNTS: Sponge and needle counts correct. COMPLICATIONS: There were no intraoperative complications. Alyssa Melendez MD JS:[id number] /[id number] NoPremier HealthURGICAL PATHOLOGYon [id number] REPORTNoFirelands Regional Medical CenterComment on above:Order Comment: Specimen Type: TISSUE SPECIMEN Ordering Facility: [facility] Address: [address] [place], [place] [address]Result Comment: Surgical Pathology Report Case: [id number] Authorizing Provider: Alyssa Melendez MD Collected: 03/16/2023 01:04 PM Ordering Location: [facility] Received: 03/16/2023 01:49 PM Pathologist: Celia Cedeño MD Specimen: THYROID LOBE LEFTPerformed By: #### S #### [facility] CLIA [id number] [address] [place], [place] [address] [place] [address] [place] STATES OF AMERICACLINICAL HISTORYNoFirelands Regional Medical Center South CampusComment on above:Order Comment: Specimen Type: TISSUE SPECIMEN Ordering Facility: [facility] Address: [address] [place], [place] [address] Comment: Pre-op diagnosis: Papillary thyroid carcinoma (HCC) [C73] Malignant neoplasm of thyroid gland (HCC) [C73]Performed By: #### S #### [facility] CLIA [id number] [address] [place], [place] [address]DIAGNOSIS COMMENTNoFirelands Regional Medical Center South CampusComment on above:Order Comment: Specimen Type: TISSUE SPECIMEN Ordering Facility: [facility] Address: [address] [id number] Comment: Histologic sections of the left thyroid lobe show a 1.1 cm encapsulated, follicular patterned nodule. Immunohistochemical stains were performed to evaluate the nodule. The hyperplastic cells are negative for NRAS and demonstrate focal, nonspecific HBME-1 staining. 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 This case was reviewed in consultation with Drs. Cook and Frank who agree with the diagnosis. Laboratory Developed Test (LDT) Disclaimer: Performance characteristics of immunohistochemical, immunofluorescent and chromogenic in-situ hybridization tests have been determined by the performing laboratory within [facility]???s [facility] Pathology and Laboratory Medicine [place] ([facility], [facility], [facility], [facility], [facility], or [facility]) in a manner consistent with CLIA requirements. One or more of these tests have not been clearedor approved by the FDA. [facility] is regulated under CLIA as qualified to perform high-complexity testing. These tests are used for clinical purposes. They should not be regarded as investigational or for research. Positive and negative controls stain appropriately.Performed By: #### S #### [facility] CLIA [id number] [address] [place], [place] [address]FINAL DIAGNOSISNoFirelands Regional Medical Center South CampusComment on above:Order Comment: Specimen Type: TISSUE SPECIMEN Ordering Facility: [facility] Address: [address] [place] [address]Fnkres Comment: A. 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 Performed By: #### S #### [facility] CLIA [id number] [address] on above:Order Comment: Specimen Type: TISSUE SPECIMEN Ordering Facility: [facility] Address: [address] [place], [place] [address]Result Comment: Diagnostic interpretation performed at [facility], [address] [place] [address] CLIA# [id number] Automation Tester: Jerome Galvez M.D.Performed By: #### S #### [facility] CLIA [id number] [address] [place] [address] on above:Order Comment: Specimen Type: TISSUE SPECIMEN Ordering Facility: [facility] Address: [address] [place], [place] [address]Result Comment: A. THYROID LOBE LEFT Labeled: ??? Thyroid lobe left??? Received: Formalin Specimen type: Left lobectomy with isthmusectomy without attached skeletal muscle, lymph nodes, and/or large vessels. Oriented: No Weight: 13.6 grams Size: 4.5 x 4.3 x 2.2 cm Left lobe: 3.5 x 2.1 by 1.9 cm Isthmus: 1.1 x 1.1 x 0.5 cm Ink code: Blue - External surface of the left lobe [place] - Resection margin of isthmus Sectioning: The left lobe and isthmus are serially sectioned from superior to inferior. Number of discrete nodules: 1 Nodule 1: Location: Left lobe Size: 1.1 x 0.6 x 1.5 cm. Description: Well-circumscribed, encapsulated, warner/yellow, firm. Gross extrathyroidal extension: No Background thyroid parenchyma: Serial sectioning from superior to inferior reveals red/warner and firmunremarkable parenchyma. Attached skeletal muscle: Not identified Attached lymph nodes: Not identified Attached parathyroid: Not identified Gross photograph: Yes This case was discussed with the head and neck fellow, Dr. Rangel. Cassette Code: A1: Nodule 1 A2: Nodule 1 A3: Nodule 1 A4: Nodule 1 with isthmus Gross examination performed at [facility], [facility] [place] [address]. CLIA #[id number] 03/17/23 2:39 PMPerformed By: #### S #### [facility] CLIA [id number] [address] [place] [address] STATES OF AMERICAHISTORY PHYSICALon [id number] PHYSICALHNO ID: [id number] Author: Randi Yates PA Service: ? Author Type: Physician Boiler Erector Type: HANDP Filed: 03/06/2023 12:53 PM Note Text: HISTORY AND PHYSICAL EXAMINATION SERVICE DATE: 03/06/2023 SERVICE TIME: 10:28 AM PRIMARY CARE PHYSICIAN: Danielito Gregory DO This is a virtual visit using [employer] video visit. It required patient-provider interaction for the medical decision making as documented below. I have communicated my name and active licensure. The patient's identity and physical location were verified at the time of this visit. Either the patient or their legal health and safety representative has been informed of the risks and benefits of and alternatives to treatment through a remote evaluation and consents to proceed with the evaluation remotely. REASON FOR VISIT: Lakeisha Linda is a 32 year old female who is scheduled for Procedure(s): THYROIDECTOMY COMPLETE FOLLOWING PARTIAL REMOVAL (Left) at the request of Alyssa Rodriguez MD for consultation. My final recommendation will be communicated back to the requesting physician by way of shared medical record or letter. Subjective The patient has the following: ACTIVE PROBLEM LIST Pericarditis Adhd Anxiety Obesity COVID-19 Immunization Status Overdue - COVID-19 VACCINE (2 - Moderna series) Overdue since 10/13/2021 08/18/2021 Imm Admin: COVID-19 original vaccine, full dose, monovalent (MODERNA) Patient reports being partially vaccinated against COVID-19. Patient reports a prior COVID-19 infection, with an infection date of April 2020. CHIEF COMPLAINT: Preop exam HPI: Patient is a 32 year old female presenting with a thyroid mass. It is biopsy proven papillary thyroid carcinoma. She is followed by Endo. Denies difficulty swallowing. She has had her R thyroid surgically removed in 2019. Patient denies other specific radiating, alleviating, or aggravating factors. REVIEW OF SYSTEMS: General: Obesity Negative for: unintentional weight change, malaise and fever. Neurological: No history of TIA's, stroke, BR[place] WARP tumor, impaired sensorium, hemiplegia, paraplegia or quadraplegia. No neurological symptoms or problems. Respiratory: Positive for: prior COVID-19 infection. Date of COVID-19 infection: April 2020. Negative for: asthma, bronchitis, COPD, current cough, dyspnea, pneumonia within 6 weeks, tobacco use, URI < 2 weeks and obstructive sleep apnea. Cardiovascular: Pericarditis (10/2022, mono, strep) Negative for: abdominal aortic aneurysm, AICD/PPM, arrhythmia, atrial fibrillation, chest pain, CHF, DVT/PE, hyperlipidemia, hypertension, murmur/valvular heart disease, PTCA, open heart surgery and valve surgery. GI: No history of GI symptoms or problems. No history of esophageal varices, recent ascites, or ETOH greater than 2 drinks per day. : No history of dysuria, frequency or incontinence, stones or chronic kidney disease. No difficulty urinating, nocturia > 1 time per night or hematuria. 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 Endocrine: No history of diabetes. Has not taken steroids within the past 30 days. No history of endocrinological symptoms or problems. Hematology: No history of bleeding or clotting disorder. Patient is not taking anti-coagulation or platelet medications. No history of hematological symptoms or problems. Oncology: See HPI. papillary thyroid carcinoma Negative for: chemo within 30 days and radiotherapy within 90 days. Psych: Positive for: ADHD and anxiety. Negative for: ADD, bipolar disorder and depression. Musculoskeletal: Negative for joint pain or swelling, back pain or muscle pain. Skin: Negative for lesions, rash and itching. History reviewed. No pertinent past medical history. PAST SURGICAL HISTORY Procedure Laterality Date PAST SURGICAL HISTORY OF cardiac catherization, dx'ed with pericarditis (mono, strep) PAST SURGICAL HISTORY OF 2018, R side thyroid PAST SURGICAL HISTORY OF 2020 FAMILY HISTORY Problem Relation Age of Onset Anesthesia Problems No Family History Social History Tobacco Use Smoking status: Never Passive exposure: Never Smokeless tobacco: Never Substance Use Topics Alcohol use: Yes Comment: 3 drinks per week Drug use: Not Currently Prior to Admission medications as of 03/06/23 0952 Medication Sig Last Dose Taking FLUoxetine (PROZAC) 20 mg capsule Take 1 capsule by mouth every afternoon. Taking Yes methylphenidate (RITALIN) 20 mg tablet Taking Yes No medication comments found. ALLERGIES No Known Allergies Objective PHYSICAL EXAM: General: alert and oriented and obese. Pertinent negatives noted - not distressed. Skin: No rashes noted. HEENT: Normocephalic. EOM intact, no injection, visual acuity is grossly normal. External nose normal without rhinorrhea. Moist mucous membranes. Full neck ROM, no cervical LNs noted.. Cardiovascular: Rebekah (more content not included)...NormalZanesville City HospitalCNOVon [id number] Visit (ENSUMN) LAKEISHA LINDA ([id number]) 1990 F [place] Date Time Provider Department 03/03/23 10:40 AM ALYSSA MELENDEZ During your visit today, we recorded the following information about you: Pulse Blood pressure Weight Height 108/minute 136/87 117.5 kg 1.753 m Skylar Anaya Ma 03/03/2023 10:13 AM Signed Thank you for choosing the [facility] Department of Endocrinology, Diabetes and Metabolism. Did you know that you need to call 48 hours in advance of your scheduled visit, if you are unable to make your appointment? The Endocrinology and Metabolism [place] thanks you for your commitment, because patients not showing to their appointment results in a lost opportunity for patients to receive [facility] health care at the [facility]. To Cancel an appointment, please choose one of the following: - Call the Appointment Call Center at [phone] - From [employer], Go to Appointments - Cancel Appts If cancelling, consider your need to reschedule to prevent further delays in your care. To Schedule an appointment, please choose one of the following: - Call the Appointment Call Center at [phone] - From [employer], Go to Appointments - Request an Appt Alyssa Melendez MD 03/03/2023 10:50 AM Signed Direct laryngoscopy was performed with flexible laryngoscope after application of topical anesthesia to the [place]/nasopharynx. Both true vocal cords were seen to move in full ab/adduction. Informed consent obtained. MD Akbar Cramer Ma, RN 03/03/2023 11:12 AM Signed Used laryngoscope model #[id number]. Paulie Velez RN Allergies As of Date: 03/03/2023 (No Known Allergies) Date Reviewed: 03/03/2023 Reviewed by: Skylar Anaya Ma - Fully Assessed Reason for Visit: Pre-Op Exam [87] Primary Visit Diagnosis:Malignant neoplasm of thyroid gland (HCC) [C73] Prescriptions as of 03/03/2023 - FLUoxetine (PROZAC) 20 mg capsule Take 1 capsule by mouth every afternoon. - methylphenidate (RITALIN) 20 mg tablet Problem List As Of Date: 03/03/2023 (None) Other instructions from your clinician: Thank you for choosing the [facility] Department of Endocrinology, Diabetes and Metabolism. Did you know that you need to call 48 hours in advance of your scheduled visit, if you are unable to make your appointment? The Endocrinology and Metabolism [place] thanks you for your commitment, because patients not showing to their appointment results in a lost opportunity for patients to receive [facility] health care at the [facility]. To Cancel an appointment, please choose one of the following: - Call the Appointment Call Center at [phone] - From [employer], Go to Appointments - Cancel Appts If cancelling, consider your need to reschedule to prevent further delays in your care. To Schedule an appointment, please choose one of the following: - Call the Appointment Call Center at [phone] - From [employer], Go to Appointments - Request an Appt Visit Notes: >> Paulie Velez, RN e Mar 03, 2023 11:12 AM Status: Signed Used laryngoscope model #[id number]. Paulie Velez RN Encounter Status:Closed by ALYSSA MELENDEZ on 03/03/23NoMercy Health [facility] metabolic 2000 panelon [id number] gap [Moles/Vol]10 mmol/L9 - 18 mmol/LCleveland ClinicCalcium [Mass/Vol]9.1 mg/dL8.5 - 10.2 mg/dLClecleveland clinic hillcrest hospital ClinicChloride [Moles/Vol]103 mmol/L97 - 105 mmol/LCleveland ClinicCO2 [Moles/Vol]26 mmol/L22 - 30 mmol/LCleveland ClinicCreatinine [Mass/Vol]0.55 mg/dLLow0.58 - 0.96 mg/dLRegency Hospital [facility] EastEstimated Glomerular Filtration Byum544 mL/min/1.73m>=60 mL/min/1.73mCleveland ClinicGlucose [Mass/Vol]106 mg/aWGzac00 - 99 mg/dLRegency Hospital [facility] EastPotassium [Moles/Vol]3.4 mmol/LLow3.7 - 5.1 mmol/L [facility] Medical Centerodium [Moles/Vol]139 mmol/L136 - 144 mmol/LCleveland ClinicUrea nitrogen [Mass/Vol]8 mg/dL7 - 21 mg/dLRegency Hospital Cleveland EastAnion gap [Moles/Vol]10 mmol/LNormal9-18Zanesville City HospitalComment on above:Order Comment: Specimen Type: BLOOD SPECIMENOrdering Facility: [facility] Address:[address] [place], [place] [address]Performed By: #### 63803-6, 6-3 ####[facility] LWCLIA [id number] [place] [address] [place] OF AMERICACalcium [Mass/Vol]9.1 mg/dLNormal8.5-10.2ClevelMcCullough-Hyde Memorial Hospital on above:Order Comment: Specimen Type: BLOOD SPECIMENOrdering Facility: [facility] Address:[address] [address]Performed By: #### 39734-0, 6-3 ####[facility] LWCLIA [id number] [address] [address] [place] Chloride [Moles/Vol]103 mmol/YRqvitb78-397GngkupdtdUniversity Hospitals Geneva Medical CenterComkalamazoo psychiatric hospital on above:Order Comment: Specimen Type: BLOOD SPECIMENOrdering Facility: [facility] Address:[address] [place], [place] [address]Performed By: #### 68872-3, 3 ####[facility] LWCLIA [id number] [address] [address] [place] AMERICACO2 [Moles/Vol]26 mmol/LNormal 22-30Clinton Memorial Hospitalment on above:Order Comment: Specimen Type: BLOOD SPECIMENOrdering Facility: [facility] Address:[address] [place], [place] [address]Performed By: #### 08861-0, 3015-10 ####[facility] LWCLIA [id number] [address] [address] [place] AMERICACreatinine [Mass/Vol]0.55 mg/dLLow0.58-0.96[facility] Comment on above:Order Comment: Specimen Type: BLOOD SPECIMENOrdering Facility: [facility] Address:[address] [place] [address] Performed By: #### 43550-6, 3 ####[facility] LWCLIA [id number] [place] [address] [place] AMERICAESTIMATED GLOMERULAR FILTRATION DTTP509 mL/min/1.73m???Normal>=60[facility] on above:Order Comment: Specimen Type: BLOOD SPECIMENOrdering Facility: [facility] Address:[address] [place], [place] [address]Result Comment: Estimated Glomerular Filtration Rate (eGFR) is calculated using the 2020 CKD-EPI creatinine equation. This equation utilizes serum creatinine, sex, and age as parameters. The creatinine assay has traceable calibration to isotope dilution-mass spectrometry. Refer to KDIGO guidelines for clinical interpretation. In patients with unstable renal function, e.g. those with acute kidney injury, the eGFR may not accurately reflect actual GFR.Performed By: #### 22906-2, 3015-3 ####[facility] LWCLIA [id number] [place] [address] [place] AMERICAGlucose [Mass/Vol]106 mg/yZJgsq11-90QjbclyjazBlanchard Valley Health System [facility] on above:Order Comment: Specimen Type: BLOOD SPECIMENOrdering Facility: [facility] Address:[address] [place], [place] [address]Result Comment: The [place] Diabetes Association (ADA) provides guidance for cutoff values for fasting glucose and random glucose. The ADA defines fasting as no caloric intake for at least 8 hours. Fasting plasma glucose results between 100 to 125 mg/dL indicate increased risk for diabetes (prediabetes). Fasting plasma glucose results greater than or equal to 126 mg/dL meet the criteria for diagnosis of diabetes. In the absence of unequivocal hyperglycemia, results should be confirmed by repeat testing. In a patient with classic symptoms of hyperglycemia or hyperglycemic crisis, random plasma glucose results greater than or equal to 200 mg/dL meet the criteria for diagnosis of diabetes. Reference: Standards of Medical Care in Diabetes 2016, [place] Diabetes Association. Diabetes Care. 2016.39(Suppl 1).Performed By: #### 11520-5, 3015-3 ####[facility] LWCLIA [id number] [place] [address] [place] AMERICAPotassium [Moles/Vol]3.4 mmol/LLow3.7-5.1CMcKitrick Hospital on above:Order Comment: Specimen Type: BLOOD SPECIMENOrdering Facility: [facility] Address:[address] [place], [place] [address]Performed By: #### 46093-9, 3 ####[facility] LWCLIA [id number] [place] [address] [place] AMERICASodium [Moles/Vol]139 mmol/QAkeenq159-785UsjvsepnnBlanchard Valley Health System [facility] on above: Order Comment: Specimen Type: BLOOD SPECIMENOrdering Facility: [facility] Address:[address]Performed By: #### 93472-8, 3015-3 ####[facility] LWCLIA [id number] [place] [id number] [place] AMERICAUrea nitrogen [Mass/Vol]8 mg/dLNormal7-21 [facility] on above:Order Comment: Specimen Type: BLOOD SPECIMENOrdering Facility: [facility] Address:[address] [address]Performed By: #### 24167-2, 3016-3 ####[facility] LWCLIA [id number] [address] CBC panel Auto (Bld)on 88-85-9736Sxyfxwvvddn distribution width (RBC) [Ratio] 12.6 %11.5 - 15.0 %[facility] EastHematocrit (Bld) [Volume fraction]39.4 %36.0 - 46.0 %[facility] EastHemoglobin (Bld) [Mass/Vol]13.0 g/dL11.5 - 15.5 g/dL [facility] HospitalH (RBC) [Entitic mass]28.2 pg26.0 - 34.0 pgCGrand Lake Joint Township District Memorial Hospital MCHC (RBC) [Mass/Vol]33.0 g/dL30.5 - 36.0 g/dLRegency Hospital Cleveland EastMCV (RBC) [Entitic vol]85.5 fL80.0 - 100.0 fLCleveland United HospitalNucleated RBC (Bld) [#/Vol]<0.01 k/uL [facility] EastPlatelet mean volume (Bld) [Entitic vol]11.3 fL9.0 - 12.7 fL [facility] EastPlatelets (Bld) [#/Vol]220 10*3/uL150 - 400 k/uLRegency Hospital [facility] RBC (Bld) [#/Vol]4.61 10*6/uL3.90 - 5.20 m/uLRegency Hospital Cleveland EastWBC (Bld) [#/Vol] 6.78 10*3/uL3.70 - 11.00 k/uLRegency Hospital Cleveland EastErythrocyte distribution width (RBC) [Ratio]12.6 %Rpatvz76.5-15.0[facility] on above: Order Comment: Specimen Type: BLOOD SPECIMENOrdering Facility: [facility] Address:[address] [id number] By: #### 85069-3 ####[facility] LWCLIA [id number] [place] [address] [facility] MONTGOMERYHematocrit (Bld) [Volume fraction]39.4 %Hnobgs49.0-46.0 [facility] City HospitalComkalamazoo psychiatric hospital on above:Order Comment: Specimen Type: BLOOD SPECIMENOrdering Facility: [facility] Address:[address] [place], [place] [address]Performed By: #### 63570-0 ####[facility] LWIA [id number] [place], [place] [address] Hemoglobin (Bld) [Mass/Vol]13.0 g/rXJjvwum74.5-15.5CTwin City Hospital Comment on above:Order Comment: Specimen Type: BLOOD SPECIMENOrdering Facility: [facility] Address:[address] [place] [address] Performed By: #### 75918-6 ####[facility] LWCLIA [id number] [place], [place] [address]UNWEST PENN HOSPITALMCH (RBC) [Entitic mass]28.2 pg Bczkni22.0-34.0[facility] on above:Order Comment: Specimen Type: BLOOD SPECIMENOrdering Facility: [facility] [facility] Address:[address] [place], [place] [address]Performed By: #### 69687-6 ####[facility] LWCLIA [id number] [place], [place] [address]UN[facility]ENN HOSPITALMCHC (RBC) [Mass/Vol]33.0 g/bCQcadpp48.5-36.0[facility] HospitalComkalamazoo psychiatric hospital on above:Order Comment: Specimen Type: BLOOD SPECIMENOrdering Facility: [facility] Address:[address] [place], [place] [address]Performed By: #### 42330-9 ####[facility] LWCLIA [id number] [place], [place] [address]UN[facility] PENN HOSPITALMCV (RBC) [Entitic vol] 85.5 xPDgsqfc78.0-100.0[facility] on above:Order Comment: Specimen Type: BLOOD SPECIMENOrdering Facility: [facility] Address:[address] [place], [place] [address]Performed By: #### 41198-8 ####[facility] LWCLIA [id number] [place], [place] [address]UN[facility] HOS[facility]ITAL - MCKEESPORTucleated RBC (Bld) [#/Vol]10*3/uLNormal<0.01[facility] on above:Order Comment: Specimen Type: BLOOD SPECIMENOrdering Facility: [facility] Address:[address] [place], [place] [address]Performed By: #### 72115-3 ####[facility] LWCLIA [id number] [place], [place] [address]UN[facility] PENN HOSPITALPlatelet mean volume (Bld) [Entitic vol]11.3 fLNormal9.0-12.7CMcKitrick Hospital on above:Order Comment: Specimen Type: BLOOD SPECIMENOrdering Facility: [facility] Address:[address] [place], [place] [address]Performed By: #### 30766-3 ####[facility] LWCLIA [id number] [place], [place] [address]UN[facility]ENN HOSPITALPlatelets (Bld) [#/Vol]220 10*3/fBOvtfbj265-942 [facility] on above:Order Comment: Specimen Type: BLOOD SPECIMENOrdering Facility: [facility] Address:[address] [place], [place] [address]Performed By: #### 83373-1 ####[facility] LWCLIA [id number] [place], [place] [address]UN[facility]ENN HOSPITALRBC (Bld) [#/Vol]4.61 10*6/uLNormal3.90-5.20[facility] on above:Order Comment: Specimen Type: BLOOD SPECIMENOrdering Facility: [facility] Address:[address] [place] [address]Sitozikrk By: #### 29337-2 ####[facility] LWCLIA [id number] [place] [address]UN[facility] PENN HOSPITALWBC (Bld) [#/Vol]6.78 10*3/uLNormal3.70-11.00 [facility] HospitalComment on above:Order Comment: Specimen Type: BLOOD SPECIMENOrdering Facility: [facility] Address:[place] [address]Yyialcmja By: #### 26658-4 ####[facility] LWCLIA [id number] [place] [address]UNWEST PENN HOSPITALCNOVon 01-13-2129EPNJYbmyew Visit (ENSGLW) LAKEISHA LINDA ([id number]) 1990 F U[place] Date Time Provider Department 02/12/23 1:40 PM ALYSSA MELENDEZ During your visit today, we recorded the following information about you: Alyssa Melendez MD 02/12/2023 1:03 PM Signed [facility] Endocrinology and Metabolism [place] Department of Endocrine Surgery Alyssa Melendez M.D. [address] [place] [address] Ms. Lakeisha Linda was seen in the office today in consultation for papillary thyroid carcinoma. The patient was referred by Dr. Sudheer Mcpherson, and my findings and recommendations will be communicated by way of the shared medical record. Thank you for referring your patient, Ms. Linda, for evaluation of papillary thyroid carcinoma. As you know, she is a 32-year-old female who underwent a right thyroid lobectomy and isthmusectomy on 01/17/[address] Kemal Davis at [facility] for an enlarging mass in the right thyroid gland. As per the operative report, the RU parathyroid gland was identified and preserved. 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 The patient was not aware of these findings. On her followup neck ultrasound, she was found to have nodules in the remaining left thyroid gland. One was biopsied, and it revealed atypia of undetermined significance. Therefore, she was referred here for further evaluation. The patient's past medical history is significant for ADD, depression, anxiety, and pericarditis. Her medications include fluoxetine and Ritalin. The patient's past surgical history is significant for right thyroid lobectomy/isthmusectomy and . The patient denies any family history of thyroid cancer or any other thyroid diseases. The patient denies any history of ionizing radiation to the head or neck. The patient denies any compressive symptoms related to the thyroid gland. Her most recent thyroid function test performed on 03/05/20 revealed a TSH of 3.46 (normal range, 0.45 to 5.33). On physical examination, Ms. Linda is a healthy appearing woman in no acute distress. She appears clinically euthyroid. Inspection of the head and neck reveals a well-healed cervical incision. Palpation of the neck reveals no thyromegaly or cervical lymphadenopathy. Ultrasound examination was performed in the office. This revealed surgical absence of the right thyroid gland. The left thyroid gland was normal in size and contained a complex nodule measuring 1.42 x 1.02 x 1/26 cm. There was also a subcm cyst. No abnormal central or jugular lymphadenopathy was appreciated on ultrasound. In summary, Ms. Linda is a 32-year-old female with papillary thyroid carcinoma. The remaining left thyroid gland contains a nodule with atypia. Given these findings, I feel that she would be best served by undergoing a completion left thyroid lobectomy. The indications, risks, benefits, and alternatives of a completion left thyroid lobectomy were explained to the patient in detail. I will keep you informed as to her perioperative course. I appreciate being involved in the care of your patient, and please feel free to contact me should you have additional questions or concerns. ALYSSA MELENDEZ M.D. CC: Paula King D.O. Referring Provider: SUDHEER MCPHERSON [[id number]] Allergies As of Date: 02/12/2023 (Not on File) Date Reviewed: Never Reviewed Primary Visit Diagnosis:Malignant neoplasm of thyroid gland (HCC) [C73] Other Visit Diagnosis:Papillary thyroid carcinoma (HCC) [C73] Order(s):CONSULT TO ENDOCRINE SURGERY [7312406] Order #: [id number]: 1 TSH BLD [SQTSH] Order #: [id number] FUTURE CBC [SQCBC] Order #: [id number] FUTURE BASIC METABOLIC PNL [SQBMP] Order #: [id number] FUTURE THYROGLOBULIN, SERUM WITH REFLEX TO IA OR LC-MS/MS [SQTHYRORF] Order #: [id number] FUTURE Problem List As Of Date: 02/12/2023 (None) Encounter Status:Closed by ALYSSA MELENDEZ on 02/12/23NormalCMemorial Hospital BLDon [id number] Qn1.730 m[IU]/L0.270 - 4.200 mIU/LCWestern Reserve Hospital SerPl-aCncon 31-27-1014YST Qn1.730 m[IU]/LNormal0.270-4.200[facility] HospitalComment on above:Order Comment: Specimen Type: BLOOD SPECIMENOrdering Facility: [facility] Address:[address] [place] [address]Zqcdok Comment: If the patient is , TSH reference range varies by gestational period: First Trimester (weeks 9-12): 0.180-2.990 mIU/L Second Trimester: 0.110-3.980 mIU/L Third Trimester: 0.480-4.710 mIU/L Minor Izquierdo et al. A Practical Approach for the Verifications and Determination of Site- and Trimester-Specific Reference Intervals for Thyroid Function tests in . Thyroid, 2019:29:3:412-420.Vaughn Seaman, et al. 2017 Guidelines of the [place] Thyroid Association for the Diagnosis and Management of Thyroid Disease during and the . Thyroid, 2017:27:3:315-389. Performed By: #### 68080-0, 3016-3 ####[facility] LWCLIA [id number] [place] [address] [place] OF AMERICAThyroglobulin and Thyrogobulin Ab panelon 84-53-2114Vomkhbpockiym Ab Qn[IU]/mLNormal<4.0[facility] on above:Order Comment: Specimen Type: BLOOD SPECIMENOrdering Facility: [facility] Address:[address] [place], [place] [address]Result Comment: The Thyroglobulin Antibody test was performed using the Ginny Michael Unicel DXI paramagnetic particle chemiluminescent immunoassay method. Results obtained with different assay meth ods or kits cannot be used interchangeably.Performed By: #### 77982-3 ####[facility] LABCLIA [id number] [address] AMERICATHYROGLOBULIN, SERUM8.9 ng/mL Normal1.6-50.0[facility] on above:Order Comment: Specimen Type: BLOOD SPECIMENOrdering Facility: [facility] Address:[address] [place], [place] [address]Result Comment: The Thyroglobulin test was performed using the Ginny Michael Unicel DXI paramagnetic particle chemiluminescent immunoassay method. Results obtained with different assay methods or kits cannot be used interchangeably.Performed By: #### 44523-8 ####[facility] LABCLIA [id number] [place] [address] [place] AMERICAOUTSIDE CYTOLOGY SLIDE REVIEWon [id number] REPORTNormalCMcKitrick Hospital on above:Order Comment: Specimen Type: SLIDEOrdering Facility: Outside Review Address: , , Result Comment: Medical Cytology Report Case: [id number] Authorizing Provider: Alyssa Melendez MD Collected: 01/28/2023 04:03 PM Ordering Location: [facility] Main Received: 01/28/2023 04:01 PM Pathologist: Yari Cook MD Specimen: SLIDE(S), LEFT THYROID NODULE, FINE NEEDLE ASPIRATION, 11 OUTSIDE SLIDES, ([id number], A), 3Performed By: #### [id number] ####[facility] LABCLIA [id number] [address] [address] [facility] HIGHLANDSFINSC DIAGNOSISNoProMedica Toledo [facility] on above:Order Comment: Specimen Type: SLIDEOrdering Facility: AP Outside Review Address: , , Result Comment: A - SLIDE(S) - LEFT THYROID NODULE, FINE NEEDLE ASPIRATION, 11 OUTSIDE SLIDES, (C23-159, A), 12/08/2022 Atypia of undetermined significance in a background of cyst contents. (See comment.) Performed By: #### [id number] ####[facility] LABCLIA [id number] [place] [id number] [facility] HIGHLANDSFINSC PERFORMING LAB NormalBlanchard Valley Health System [facility] on above:Order Comment: Specimen Type: SLIDEOrdering Facility: AP Outside Review Address: , ,Result Comment: Technical component, occupational health manager screening performed at [facility], [facility] [address] CLIA# [id number] Diagnostic interpretation performed at [facility], [facility]0 [facility] [address] CLIA# [id number] Automation Tester: Jerome Galvez M.D.Performed By: #### [id number] ####[facility] LABCLIA [id number] [address] [address] [facility] HIGHLANDSOUTSIDE SURG PATH SLIDE REVIEWon [id number] REPORTNoProMedica Toledo Hospital on above:Order Comment: Specimen Type: SLIDEOrdering Facility: AP Outside Review Address: , , Result Comment: Surgical Pathology Report Case: [id number] Authorizing Provider: Alyssa Melendez MD Collected: 01/28/2023 04:14 PM Ordering Location: [facility] Main Received: 01/28/2023 04:01 PM Pathologist: Fabricio Marie MD Specimen: SLIDE(S), 14 Slides [id number] By: #### [id number] ####[facility] LABCLIA [id number] [address] [address] [facility], AVONDIAGNOSIS COMMENTNoMetroHealth [facility] Comment on above:Order Comment: Specimen Type: SLIDEOrdering Facility: AP Outside Review Address: , ,Result Comment: Dr. Sandy Prieto has reviewed this case and concurs as above. As we are not involved in gross assessment, we are unable to comment on margin status or stage of consultation cases. Laboratory Developed Test (LDT) Disclaimer: Performance characteristics of immunohistochemical, immunofluorescent and chromogenic in-situ hybridization tests have been determined by the performing laboratory within [facility]???s [facility] Pathology and Laboratory Medicine [place] ([facility], [facility], [facility], [facility], [facility], or [facility]) in a manner consistent with CLIA requirements. One or more of these tests have not been clearedor approved by the FDA. [facility] is regulated under CLIA as qualified to perform high-complexity testing. These tests are used for clinical purposes. They should not be regarded as investigational or for research. Positive and negative controls stain appropriately.Performed By: #### [id number] ####[facility] LABCLIA [id number] [address] [address] [facility] OF AMERICAFINAL DIAGNOSISNormUniversity Hospitals Conneaut Medical CenterComment on above:Order Comment: Specimen Type: SLIDEOrdering Facility: AP Outside Review Address: , , Result Comment: 14 slides labeled [id number] are received from [facility] ([place], [place]), collected January 17, 2019. Right thyroid: -Papillary thyroid carcinoma (3.5 cm), encapsulated follicular variant with tumoral-capsular invasion (minimally invasive). -No angiolymphatic or perineural invasion. Performed By: #### [id number] ####[facility] LABCLIA [id number] [place] [address] [place] OF AMERICAFINAL PERFORMING LAB NormalBlanchard Valley Health System [facility] on above:Order Comment: Specimen Type: SLIDEOrdering Facility: AP Outside Review Address: , ,Result Comment: Diagnostic interpretation performed at [facility], [address] [facility] [address] CLIA# [id number] Automation Tester: Jerome Galvez M.D.Performed By: #### [id number] ####[facility] LABCLIA [id number] [place] [address] [place] AMERICAMICROSCOPIC DESCRIPTIONNormal [facility] on above:Order Comment: Specimen Type: SLIDEOrdering Facility: AP Outside Review Address: , ,Result Comment: Ancillary studies performed on block A5 at the [facility] are as follows: HBME-1: Diffusely positive in tumor cells NRAS: Diffusely positive in tumor cells BRAF V600E: Negative in tumor cellsPerformed By: #### [id number] ####[facility] LABCLIA [id number] [place] [address] [place] AMERICACNPNon [id number] (ENSUMN) LAKEISHA LINDA ([id number]) 1990 F [place] Date Time Provider Department 01/22/23 ALYSSA MEELNDEZ During your visit today, we recorded the following information about you: Vivianessence Erickson 01/22/2023 2:33 PM Addendum INDEXED OP NOTE, PATH REPORTS, THYROID US REPORT,AND LABS Allergies As of Date: 01/22/2023 (Not on File) Date Reviewed: Never Reviewed Reason for Visit: Received Outside Medical Records [3139] Cmt: INDEXED OP NOTE, PATH REPORTS, THYROID US REPORT,AND LABS Problem List As Of Date: 01/22/2023 (None) Encounter Status:Closed by VIVIAN ERICKSON on 01/22/23[facility] Hospitalon [id number] (ENSUMN) LAKEISHA LINDA ([id number]) 1990 F [place] Date Time Provider Department 01/20/23 ALYSSA MELENDEZ ENSBRIAN During your visit today, we recorded the following information about you: Vivian Erickson 01/21/2023 10:18 AM Addendum 01/21/2023-INTAKE COMPLETED-NEED TSH-US COMPLETED AT [facility] 10/23(REQUESTED IMAGES) REQUESTED SLIDES, FNA REPORTS, AND OP NOTE([facility]) 01/20/2023 INTAKE PENDING-NEED US AND TSH-LFT MSG ON X FOR A RETURN CALL. 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 PATIENT PHYSICIAN INFORMATION Referring Doctor: Address: Phone: Lecturer In Marketing: Address: Phone: PCP: Daniel[place] [address] PAST TREATMENT Office notes: SEE EPIC Medications: NONE THAT APPLY Pre-Visit Testing STUDY/TEST DATE ORDERED/REQUESTED DATE RECEIVED/COMPLETED ENTIRE PANEL TSH FREE T4 FREE T3 Imaging Reports: NONE AVAILABLE CD of Images: Requested from referring physician (Date received: ) FNA: yes: 12/23-6/19 FNA Slides: Slides requested from outside facility (Date received: ) Has the patient ever had thyroid or parathyroid surgery before: Yes: Thyroid (Date: 01/19) Operative Reports: Requested from referring physician (Date received: ) Pathology Reports: Requested from referring physician (Date received: ) Allergies As of Date: 01/20/2023 (Not on File) Date Reviewed: Never Reviewed Reason for Visit: Consult [173] Cmt: FACE SHEET Problem List As Of Date: 01/20/2023 (None) Encounter Status:Closed by VIVIAN ERICKSON on 01/20/23NoMetroHealth Main Campus Medical Center Vital Signs Date TimeVital SignValuePerforming HuzdgvmysZosnsxgh59-56-4984 15:19-0400Body .3 cmMarc Dolce DPM FACFAS Work Phone: [phone] [place], [place] [address]04-23-2025 15:19-0400Body mass index (BMI) [Ratio]38.54 kg/m2Marc Dolce DPM FACFAS Work Phone: 1(155)[facility] [place], [place] [address]Rfbokcvakl41-65-4699 15:19-0400Body tzgdit979.39 kgMarc Dolce DPM FACFAS Work Phone: [phone] [place], [place] [address]04-23-2025 15:19-0400Diastolic blood mm[Hg]Calderon Webber DPM FACFAS Work Phone: [phone] [place], [place] [address]04-23-2025 15:19-0400Heart rate70 /min Calderon Webber DPM FACFAS Work Phone: [phone] [place], [place] [address]04-23-2025 15:19-0400Systolic blood dfktyaff476 mm[Hg]Calderon Webber DPM FACFAS Work Phone: [phone])[address] [place], [place] [address]03-25-2025 11:56-0400Body .26 cmSal[facility]03-25-2025 11:56-0400Body mass index (BMI) [Ratio]38.2 kg/b2ZblbwkbapSalem Regional Medical Center03-25-2025 11:56-0400Body pvmmpa126.48 kgSalem Regional Medical Center03-25-2025 11:56-0400Diastolic blood iwdrukfd92 mm[Hg][facility]03-25-2025 11:56-0400 Heart rate95 /minSalem Regional Medical Center03-25-2025 11:56-8962ZfU2% (BldA) [Mass fraction]97 %[facility]03-25-2025 11:56-0400 Systolic blood zmczkimp961 mm[Hg][facility]01-31-2025 10:16-0500Body knohqg781.3 cmMarc Dolce DPM FACFAS Work Phone: [phone] [place], [place] [address]01-31-2025 10:16-0500Body mass index (BMI) [Ratio]38.99 kg/m2Marc Dolce DPM FACFAS Work Phone: [phone])[address] [place], [place] [address]01-31-2025 10:16-0500Body pdoewa405.75 kgMarc Dolce DPM FACFAS Work Phone: [phone] [place], [place] [address]01-31-2025 10:16-0500Diastolic blood nhjgqdab47 mm[Hg]Calderon Webber DPM FACFAS Work Phone: 1(419)[address] [place], [place] [address]01-31-2025 10:16-0500Heart rate76 /min Calderon Felixce DPM FACFAS Work Phone: [phone] [place], [place] [address]01-31-2025 10:16-0500Systolic blood uovvdlmn105 mm[Hg]Calderon Webber DPM FACFAS Work Phone: 1(419)[address] [place], [place] 8463701-10-2025 11:51-0500Body fxanpa691.3 cmMarc Dolce DPM FACFAS Work Phone: [phone] [place], [place] [address]463701-10-2025 11:51-0500Body mass index (BMI) [Ratio]38.99 kg/m2Marc Dolce DPM FACFAS Work Phone: [phone] [place], [place] 8463701-10-2025 11:51-0500Body zvmqfo835.75 kgMarc Dolce DPM FACFAS Work Phone: 1(419)[address] [place], [place] [address]3701-10-2025 11:51-0500Diastolic blood lvzktkyu65 mm[Hg]Calderon Dolce DPM FACFAS Work Phone: [phone]-[facility] HealthEnwdrpjuzs73-16-2992 11:51-0500Heart rate77 /min Calderon Webber DPM FACFAS Work Phone: 1(700)[address] [place], [place] [address]46[address]01-10-2025 11:51-0500Systolic blood seagjgff563 mm[Hg]Calderon Webber DPM FACFAS Work Phone: 1(298)[address] [place], [place] 8463701-07-2025 14:35-0500Body qnviri566.26 cmElyse Bri DO Work Phone: 1(964)[address] [place], [place] 3554501-07-2025 14:35-0500 Body mass index (BMI) [Ratio]38.9 kg/e7Fmner Bri DO Work Phone: 1(551)[address] [place], [place] 3554501-07-2025 14:35-0500 Body mqqsun313.74 kgElyse Bri DO Work Phone: 1(830)[address] [place], [place] 3554501-07-2025 14:35-0500 Diastolic blood udbfirjz92 mm[Hg]Danielito Bri DO Work Phone: 1(446)[address] [place], [place] 3554501-07-2025 14:35-0500 Heart rate83 /minElyse Bri DO Work Phone: 1(235)[address] [place], [place] 3554501-07-2025 14:35-0500 SaO2% (BldA) [Mass fraction]95 %Danielito Bri DO Work Phone: 1(101)[address] [place], [place] 3554501-07-2025 14:35-0500 Systolic blood yqbwridi179 mm[Hg]Danielito Bri DO Work Phone: 1(624)[address] [place], [place] 3554512-27-2024 11:14-0500 Body .3 cmCalderon Webber DPM FACFAS Work Phone: [phone])[address] [place], [place] 8463712-27-2024 11:14-0500Body mass index (BMI) [Ratio]38.99 kg/m2Marc Isidroce DPM FACFAS Work Phone: 1(108)[address] [place], [place] 8463712-27-2024 11:14-0500Body xmyajz267.75 kgMarc Dolce DPM FACFAS Work Phone: [phone])[address] [place], [place] 8463712-27-2024 11:14-0500Diastolic blood jlgrrcam96 mm[Hg]Calderon Dolce DPM FACFAS Work Phone: 1(419)[address] [place], [place] 8463712-27-2024 11:14-0500Heart rate73 /min Calderon Dolce DPM FACFAS Work Phone: 1(419)[address] [place] [address]-27-2024 11:14-0500Systolic blood otppvyaj109 mm[Hg]Calderon Dolce DPM FACFAS Work Phone: 1(419)[address] [place], [place] 8463712-17-2024 10:13-0500Body edfuxj059.3 cmMarc Dolce DPM FACFAS Work Phone: [phone])[address] [place], [place] 8463712-17-2024 10:13-0500Body mass index (BMI) [Ratio]38.99 kg/m2Marc Dolce DPM FACFAS Work Phone: 1(419)[address] [place], [place] 8463712-17-2024 10:13-0500Body .75 kgMarc Dolce DPM FACFAS Work Phone: 1(622)[address] [place], [place] 8463712-17-2024 10:13-0500Diastolic blood qtjisfnf50 mm[Hg]Calderon Dolce DPM FACFAS Work Phone: 1(419)[address] [place], [place] 8463712-17-2024 10:13-0500Heart rate72 /min Calderon Dolce DPM FACFAS Work Phone: 1(419)[address] [place] [address]-17-2024 10:13-0500Systolic blood ododepbv545 mm[Hg]Calderon Dolce DPM FACFAS Work Phone: 1(419)[address] [place], [place] 8463712-03-2024 09:44-0500Body soyvox294.3 cmMarc Dolce DPM FACFAS Work Phone: [phone])[address] [place], [place] 8463712-03-2024 09:44-0500Body mass index (BMI) [Ratio]38.99 kg/m2Marc Dolce DPM FACFAS Work Phone: 1(419)[address] [place], [place] 8463712-03-2024 09:44-0500Body .75 kgMarc Dolce DPM FACFAS Work Phone: [phone])[address] [place], [place] 8463712-03-2024 09:44-0500Diastolic blood hepbprqp97 mm[Hg]Calderon Dolce DPM FACFAS Work Phone: 1(419)[address] [place], [place] 8463712-03-2024 09:44-0500Heart rate72 /min Calderon Dolce DPM FACFAS Work Phone: 1(419)[address] [place], [place] 8463712-03-2024 09:44-0500Systolic blood zddlnaxj489 mm[Hg]Calderon Dolce DPM FACFAS Work Phone: 1(202)[address] [place], [place] 8463710-29-2024 10:53-0400Body ezfkpz403.3 cmMarc Dolce DPM FACFAS Work Phone: 1(575)[address] [place], [place] 8463710-29-2024 10:53-0400Body mass index (BMI) [Ratio]38.99 kg/m2Marc Dolce DPM FACFAS Work Phone: 1(880)[address] [place], [place] 8463710-29-2024 10:53-0400Body iuougg223.75 kgMarc Dolce DPM FACFAS Work Phone: 1(507)[address] [place], [place] 8463710-29-2024 10:53-0400Diastolic blood mm[Hg]Calderon Dolce DPM FACFAS Work Phone: 1(280)[address] [place], [place] 8463710-29-2024 10:53-0400Heart rate72 /min Calderon Dolce DPM FACFAS Work Phone: 1(899)[address] [place] [address]-29-2024 10:53-0400Systolic blood gvopplwv206 mm[Hg]Calderon Dolce DPM FACFAS Work Phone: 1(419)[address] [place] [address]-09-2024 13:02-0400Body igoval538.3 cmMarc Dolce DPM FACFAS Work Phone: 1(419)[address] [place] [address]-09-2024 13:02-0400Body mass index (BMI) [Ratio]38.99 kg/m2Marc Dolce DPM FACFAS Work Phone: 1(419)[address] [place], [place] 8463710-09-2024 13:02-0400Body xaosei415.75 kgMarc Dolce DPM FACFAS Work Phone: [phone] [place], [place] 8463710-09-2024 13:02-0400Diastolic blood ohklwzuj83 mm[Hg]Calderon Webber DPM FACFAS Work Phone: [phone] [place], [place] 8463710-09-2024 13:02-0400Heart rate68 /min Calderon Webber DPM FACFAS Work Phone: [phone] [place], [place] [address]Fodovryopw10-54-4727 13:02-0400Systolic blood bzjnjysc919 mm[Hg]Calderon Webber DPM FACFAS Work Phone: [phone] [place], [place] 8463709-25-2024 13:09-0400Body wfbsoi949.3 cmMarc Dolce DPM FACFAS Work Phone: [phone] [place], [place] 8463709-25-2024 13:09-0400Body mass index (BMI) [Ratio]38.99 kg/m2Marc Dolce DPM FACFAS Work Phone: [phone] [place], [place] 8463709-25-2024 13:09-0400Body caohek375.75 kgMarc Dolce DPM FACFAS Work Phone: [phone] [place], [place] 8463709-25-2024 13:09-0400Diastolic blood ajrvutnf23 mm[Hg]Calderon Webber DPM FACFAS Work Phone: [phone] [place], [place] [address]3709-25-2024 13:09-0400Heart rate68 /min Calderon Webber DPM FACFAS Work Phone: [phone] [place], [place] [address]Viuejxjfsm09-86-4834 13:09-0400Systolic blood smqladlp445 mm[Hg]Calderon Webber DPM FACFAS Work Phone: [phone] [place], [place] 8463708-28-2024 11:10-0400Body mass index (BMI) [Ratio]38.72 kg/v3Gasui Ismael DO Work Phone: [facility] HealthRpbiixglva17-46-5030 11:10-0400Body pazviv351.66 kgCorey Ismael DO Work Phone: [facility] HospitalFddalnermd33-65-1297 11:10-0400Diastolic blood xshvkyyb09 mm[Hg]Mauro Ismael DO Work Phone: [facility] HospitalGgjzhdvuke97-57-9224 11:10-0400Systolic blood sagrxjkh398 mm[Hg]Mauro Ismael DO Work Phone: [facility] HospitalTgerxlevbk49-91-9938 10:15-0400Body czjbsa344.3 cmAlyssa Melendez MD Work Phone: [facility]08-01-2023 10:15-0400Body .48 kgAlyssa Melendez MD Work Phone: [facility]08-01-2023 10:15-0400Diastolic blood cdpibdjn34 mm[Hg]Alyssa Melendez MD Work Phone: [facility]08-01-2023 10:15-0400Heart lvmn520 /minAlyssa Melendez MD Work Phone: [facility]08-01-2023 10:15-0400Systolic blood dhoxghwe568 mm[Hg]Alyssa Melendez MD Work Phone: [facility] Encounters Encounter DateEncounter TypeCare ProviderFacilityStart: 11-23-2024 End: 09-38-4533xvbmnikvuhLRSP D DOLCENot AvailableStart: 11-23-2024 End: 17-16-4347Zoetae follow up visit related to original pxMarc D Dolce DPM FACFAS Work Phone: [facility] NMA PODComment on above:Nontraumatic rupture of posterior tibial tendon, left (Primary Dx)Start: 11-23-2024 End: 38-73-4330Ebjjxj flowsheetMarc D Dolce DPM FACFAS Work Phone: [facility] ASC PODStart: 11-23-2024 End: 34-35-7963Okmlzb flowsheetMarc D Dolce DPM FACFAS Work Phone: [facility] ASC PODStart: 10-25-2024 End: 74-05-7092prpuyounofQpoxhvuotCommunity Memorial Hospital Work Phone: Start: 10-25-2024 End: 15-66-6257Sodbrsr encounter procedureMaria [facility] Work Phone: Start: 09-02-2024 End: 81-79-8987Bhecnl flowsheetMarc D Dolce DPM FACFAS Work Phone: [facility] ASC PODStart: 09-02-2024 End: 43-63-4605Qpnvic flowsheetMarc D Dolce DPM FACFAS Work Phone: [facility] ASC PODStart: 09-02-2024 End: 52-35-7411fjbcbankanISKI D DOLCENot AvailableStart: 09-02-2024 End: 15-04-1821Gikicw follow up visit related to original pxMarc D Dolce DPM FACFAS Work Phone: noMS NMA PODComment on above:Nontraumatic rupture of posterior tibial tendon, left (Primary Dx)Start: 08-12-2024 End: 86-21-9286Scnkry flowsheetMarc D Dolce DPM FACFAS Work Phone: [phone] ASC PODStart: 08-12-2024 End: 61-66-8672Edfkcc flowsheetMarc D Dolce DPM FACFAS Work Phone: [facility] ASC PODStart: 08-12-2024 End: 81-94-9628Dbmzgbl encounter procedureMarc D Dolce DPM FACFAS Work Phone: NOM[facility] NMA PODComment on above:Ankle instability, left (Primary Dx); Nontraumatic rupture of posterior tibial tendon, left; Contracture, ankle, leftStart: 08-12-2024 End: 33-23-3852ydeunoajgxENKP D DOLCENot AvailableStart: 08-09-2024 End: 47-90-5287nihuqbpvstImwnz C Bri DO Work Phone: [facility] Work Phone: Start: 08-09-2024 End: 16-89-3948Rtkwrfl encounter procedureElyse Bri DO Work Phone: [facility] Work Phone: Start: 07-29-2024 End: 68-31-4461Mlpkdc flowsheetMarc D Dolce DPM FACFAS Work Phone: noms ASC PODStart: 07-29-2024 End: 82-81-7383Qvjblc flowsheetMarc D Dolce DPM FACFAS Work Phone: NOUB ASC PODStart: 07-29-2024 End: 75-67-5148fzhqmjkyesBZME D DOLCENot AvailableStart: 07-29-2024 End: 90-35-5915Itfxxd follow up visit related to original pxMarc D Dolce DPM FACFAS Work Phone: noms NMA PODComment on above:Ankle instability, left (Primary Dx); Nontraumatic rupture of posterior tibial tendon, leftStart: 07-19-2024 End: 89-29-4049Kltklk flowsheetMarc D Dolce DPM FACFAS Work Phone: NOBF ASC PODStart: 07-19-2024 End: 99-87-8183Iywcsd flowsheetMarc D Dolce DPM FACFAS Work Phone: [facility] ASC PODStart: 07-19-2024 End: 14-53-3139Swthfgp encounter procedureMarc D Dolce DPM FACFAS Work Phone: [facility] NMA PODComment on above:Ankle instability, left (Primary Dx); Nontraumatic rupture of posterior tibial tendon, leftStart: 07-19-2024 End: 83-64-0180rrbnirwynsDVWH D DOLCENot AvailableStart: 07-11-2024 End: 94-52-2297Aqllmnkfz Result EncounterMarc D Dolce DPM FACFAS Work Phone: [facility]OMS External Department UnsolicitedStart: 07-11-2024 End: 18-01-7260Lkrfrxfbi Result EncounterMarc D Dolce DPM FACFAS Work Phone: noms External Department UnsolicitedStart: 07-11-2024 End: 21-09-5094vwhbwddecvEvud D DolceFacility:FTMCStart: 07-05-2024 End: 87-52-8063Lbcqkh flowsheetMarc D Dolce DPM FACFAS Work Phone: noms ASC PODStart: 07-05-2024 End: 89-91-7178Zjaart flowsheetMarc D Dolce DPM FACFAS Work Phone: noms ASC PODStart: 07-05-2024 End: 07-79-1552Jzvtou outpatient visit 25 minutesMarc D Dolce DPM FACFAS Work Phone: noms NMA PODComment on above:Ankle instability, left (Primary Dx); Nontraumatic rupture of posterior tibial tendon, leftStart: 07-05-2024 End: 87-49-1681dmkpxzkgpwLXSE D DOLCENot AvailableStart: 83-27-7874Bnw-patient / Non-visitElyse Bri DO Work Phone: [facility] Work Phone: Start: 06-14-2024 End: 82-80-0008Zhcabif encounter procedureElyse Bri DO Work Phone: [facility] Work Phone: Start: 06-14-2024 End: 39-92-5081nlknlesfvsAcgqo C Bri DO Work Phone: [facility] Work Phone: Start: 06-10-2024 End: 17-03-3298BpglbvAuaypAlvin Mcpherson MD Work Phone: EndocrinologyComment on above:Refill RequestStart: 05-31-2024 End: 95-66-7117Ononst flowsheetMarc D Dolce DPM FACFAS Work Phone: [facility] ASC PODStart: 05-31-2024 End: 24-46-9192Wemvvr flowsheetMarc D Dolce DPM FACFAS Work Phone: [phone] ASC PODStart: 05-31-2024 End: 55-55-6926Ydzggecuh encounterMarc D Dolce DPM FACFAS Work Phone: [phone] WH PODStart: 05-31-2024 End: 85-04-0512Enlhyc outpatient visit 25 minutesMarc D Dolce DPM FACFAS Work Phone: [phone] NMA PODComment on above:Nontraumatic rupture of posterior tibial tendon, left (Primary Dx); Ankle instability, leftStart: 05-31-2024 End: 04-68-0347hucwlhjtaoBZFF D DOLCENot AvailableStart: 05-24-2024 End: 45-95-2688Neptnexlk Result EncounterMarc D Dolce DPM FACFAS Work Phone: NOMS External Department UnsolicitedStart: 05-24-2024 End: 71-41-6714Msyeckaei Result EncounterMarc D Dolce DPM FACFAS Work Phone: [facility]OMS External Department UnsolicitedStart: 05-24-2024 End: 26-93-6116aeagclbcmoWkln D DolceFacility:FTMCStart: 05-11-2024 End: 17-36-8274Kltzrl flowsheetMarc D Dolce DPM FACFAS Work Phone: [facility] ASC PODStart: 05-11-2024 End: 63-07-7883Iewuwp flowsheetMarc D Dolce DPM FACFAS Work Phone: [phone] ASC PODStart: 05-11-2024 End: 95-52-9303Dyuzfn outpatient visit 25 minutesMarc D Dolce DPM FACFAS Work Phone: [facility] NMA PODComment on above:Ankle instability, left (Primary Dx); Verruca plantaris; Neoplasm of uncertain behavior of skin; Pain in left foot; Benign neoplasm of unknown originStart: 05-11-2024 End: 83-09-6568yiauannjxwVWKJ D DOLCENot AvailableStart: 04-27-2024 End: 66-44-1408Esethn flowsheetMarc D Dolce DPM FACFAS Work Phone: [facility] ASC PODStart: 04-27-2024 End: 29-02-6214Lekhgc flowsheetMarc D Dolce DPM FACFAS Work Phone: [facility] ASC PODStart: 04-27-2024 End: 02-41-6943Tipvyfpdh encounterMarc D Dolce DPM FACFAS Work Phone: NOMS WH PODComment on above:Foot OrthoticsStart: 04-27-2024 End: 05-59-1954Gtjfkg outpatient new 45 minutesMarc D Dolce DPM FACFAS Work Phone: [facility] NMA PODComment on above:Ankle instability, left (Primary Dx); Right foot pain; Left foot pain; Sinus tarsi syndrome, left; Arthritis of left ankle; Other enthesopathy of left foot and ankleStart: 04-27-2024 End: 49-07-5439umnhmtgvktBCSR D DOLCENot AvailableStart: 03-30-2024 End: 91-55-7443Sqqrsu flowsheetCorey Ismael DO Work Phone: [facility] BCP OBStart: 03-30-2024 End: 73-91-9473Inwcrb flowsheetCorey Ismael DO Work Phone: [facility] BCP OBStart: 03-30-2024 End: 26-81-7718Syvdovlbs Result EncounterCorey Ismael DO Work Phone: [facility] External Department UnsolicitedStart: 03-30-2024 End: 27-85-2161Kvljgrlg Result EncounterCorey Ismael DO Work Phone: N[facility] External Department UnsolicitedStart: 03-30-2024 End: 88-03-1931Lgfries encounter procedureCorey Ismael DO Work Phone: NOXF HealthcareStart: 03-30-2024 End: 14-80-6703Moiurjfw preventive med est patient 18-39 yrsCorey Ismael DO Work Phone: NOUD BCP OBComment on above:Well woman exam with routine gynecological exam; Screen for STD (sexually transmitted disease)Start: 03-30-2024 End: 81-68-1030loymwvenxsAISCF FABALAONot AvailableStart: 34-04-2418MgjzwjYetfxAlvin Mcpherson MD Work Phone: EndocrinologyComment on above:Refill RequestStart: 02-16-2024 End: 25-78-5478skptsfjrdyCfgqz Efrain GregoryFacility:FTMCStart: 92-92-6737PodnrqMpxvyAlvin Mcpherson MD Work Phone: EndocrinologyComment on above:Refill RequestStart: 10-21-2023 End: 21-35-5047lhoewrofebCRYNZ BAO Velazquezity:[facility] Start: 99-44-9167qvjfnlvahcHehqaJayme Mcpherson MD Work Phone: EndocrinologyComment on above:labsStart: 09-85-0202X- mail encounter from Mitch Mcpherson MD Work Phone: [facility] FHCStart: 07-09-2023 End: 25-42-7675yqpxyrqchrGXBMM BAO Ybarracility:[facility] Start: 04-27-2023 End: 47-12-9971nspwjshxlkLyhliJayme Mcpherson MD Work Phone: EndocrinologyComment on above:Postoperative hypothyroidism (Primary Dx)Start: 04-27-2023 End: 19-37-7322Jsakcsogcrgr consultation with Angel Mcpherson MD Work Phone: NORTKRISHNA CHENG MOCStart: 04-02-2023 End: 29-74-5070ozlhnywjalCVOFF BAO Ybarracility:[facility] Start: 18-12-6306Lqdlonrcz encounterAlyssa Melendez MD Work Phone: Endocrine SurgeryComment on above:Post OpStart: 03-16-2023 End: 65-63-4330bwlnfvwyxcATZWL JUNG MEE SHINFacility:[facility] HospitalStart: 83-94-2489Mfgaeq Gerardo Jiang MD Work Phone: Endocrine SurgeryComment on above:Papillary thyroid carcinoma (HCC) (Primary Dx)Start: 03-06-2023 End: 87-35-1743obpqkwnmsxLHJWF BAO GREGORYFacility:[facility] Start: 03-06-2023 End: 88-36-7496YPHFimm Breaks VirtualPre AnesthesiaComment on above:Preop examination (Primary Dx); Pericarditis, unspecified chronicity, unspecified type; Attention deficit hyperactivity disorder (ADHD), unspecified ADHD type; Anxiety; Obesity, unspecified classification, unspecified obesity type, unspecified whether serious comorbidity presentStart: 03-06-2023 End: 49-09-6314Ytfnztufxptrv examination donePacc [facility] Work Phone: Start: 03-03-2023 End: 20-10-7764jwgpjxnrfxLOJTV BAO GREGORYPeacehealth United General Medical Centerity:[facility] Start: 03-03-2023 End: 05-09-0601Dasxqjw encounter procedureAlyssa Melendez MD Work Phone: Endocrine SurgeryComment on above:Malignant neoplasm of thyroid gland (HCC) (Primary Dx)Start: 02-12-2023 End: 60-32-0633ofwbazjcwuFPVNK BAO GREGORYFacility:[facility] Start: 02-12-2023 End: 48-77-6572Sjfmprc encounter procedureAlyssa Melendez MD Work Phone: Endocrine SurgeryComment on above:Malignant neoplasm of thyroid gland (HCC) (Primary Dx); Papillary thyroid carcinoma (HCC)Start: 29-82-0617Jfspkkark encounterAlyssa Melendez MD Work Phone: Endocrine SurgeryComment on above:Received Outside Medical Records (INDEXED OP NOTE, PATH REPORTS, THYROID US REPORT,AND LABS/) Start: 25-31-8490Amaxbanzn encounterJoychuck Melendez MD Work Phone: Endocrine SurgeryComment on above:Consult (FACE SHEET) Start: 01-19-2023 End: 43-37-6796jczidpwogfUQGNZ BAO GREGORYFacility:[facility] Start: 01-19-2023 End: 12-70-0539wkdwmqhfmrGzgdk Arvind Patel MD Work Phone: EndocrinologyComment on above:Papillary thyroid carcinoma (HCC) (Primary Dx)Start: 01-19-2023 End: 69-39-3197Bkxgohfhtkhr consultation with Angel Mcpherson MD Work Phone: [facility] MOCStart: 12-08-2022 End: 19-48-3274mlflkgjvemOU Paul Biedenbach Work Phone: [facility] Work Phone: Start: 12-08-2022 End: 36-02-4488Jepxtvfy ReferredDO Kemal Davis Work Phone: [facility] [place] Work Phone: Start: 87-47-7917udzimhsrcnLfyovpjs:18648 Procedures DateProcedureProcedure DetailPerforming ClinicianStart: 27-45-3498VEKI CBC W/ AUTO DIFFMarc D Dolce DPM FACFAS Work Phone: Start: 87-19-8190BUY ANKLE W/O CONTRAST LEFTMarc D Dolce DPM FACFAS Work Phone: Start: 29-59-8212Zzgvv ankle complete minimum 3 views Calderon D Dolce DPM FACFAS Work Phone: Start: 44-94-1746NKKTMZSJUL/DISCHARGE PLUS VAGINITIS (HTRX)Mauro Guevara DO Work Phone: Start: 36-18-6519AKF,APTIMA HPV,AGE GDLNCorey Ismael DO Work Phone: Start: 98-31-5406Wqvxnltcwlm observation [Identifier] in Cervix by Cyto stainMarc Dolce DPM FACFAS Work Phone: Start: 72-40-7435Weetwrkczes observation [Identifier] in Cervix by Cyto stainCorey Ismael DO Work Phone: Start: 15-13-3867Midz cerv/vag auto thin layer prep mnl screenCorey Ismael DO Work Phone: Start: 09-75-3977Qpbkdxumqok observation [Identifier] in Cervix by Cyto stainCorey Ismael DO Work Phone: H/O: sectionStatus post C-sectionDO Kemal Davis Work Phone: comment on above:Problem List clean-up per request of Phys. EHR Cmte Plan of Treatment DateCare ActivityDetailAuthorStart: 10-16-4425Wmzfz microalbumin profile DTaP,Tdap,Td Vaccine (9 - Td or Tdap)[facility]art: 12-49-3662Tfbybcyue for malignant neoplasm of cervixNOMS HealthcareStart: 84-02-4594Sepcemkcp for malignant neoplasm of cervixNOMS HealthcareStart: 37-47-1796Rjupiukhu for malignant neoplasm of cervixPap SmearNOMS HealthcareStart: 53-56-2468Jvrkoakik for malignant neoplasm of cervixPap SmearNOMS HealthcareStart: 06-20-2025 End: 68-70-5450Lqyyjtq encounter uiwxaypaa52/18/2025 10:00 AM EST Procedure Visit [facility] [address] [place], [id number] Swati Van PA [address] [place] [address] NOMMartha ESPARZANStart: 04-04-2025 End: 64-59-6440Dvjnljr encounter fpsbbjgvu82/02/2025 9:00 AM EDT Office Visit [facility] OB [address] [place] [phone] Swati Van PA [address] [facility] [place] [address] NOM[facility] BCP OBStart: 20-90-5130Xcapruror vaccinationNOMS HealthcareStart: 10-03-2024 End: 71-79-9756Unflrak encounter umpyblgvd25/03/2025 10:00 AM EST Office Visit [facility] NMA POD [address] [place] [phone] Calderon Webber, DPM FACFAS [address] [place] [address] NOMS NMA PODStart: 09-02-2024 End: 01-97-4878Lwyxwfv encounter pnlqgiqcd98/31/2025 11:00 AM EST Office Visit [facility] P[facility] [address] [place] [address] Calderon Webber, DPM FACFAS [address] [place] [address] NOMS NMA PODStart: 08-12-2024 End: 94-25-3821Yrlrsov encounter procedureNOMS NMA PODComment on above:Arrived Start: 07-29-2024 End: 46-21-4158Kmepdcx encounter /27/2024 11:00 AM EST Office Visit [facility] [address] [place] [address] Calderon Webber, DPM FACFAS [address] [place] [address] NOMS NMA PODStart: 07-19-2024 End: 45-34-2955Egksddb encounter procedureNOMS NMA PODComment on above:Arrived Start: 07-05-2024 End: 04-40-9195Tqzbfej encounter mupzbyfpd22/03/2024 9:30 AM EST Office Visit [facility] POD [address] [place] [address] Calderon Webber, DPM FACFAS [address] [place] [address] ArrivedNOMS NMA PODComment on above:ArrivedStart: 05-31-2024 End: 77-18-0923Dqxwqmk encounter procedureNOMS NMA PODComment on above:Arrived Start: 05-11-2024 End: 67-04-2893MH Ankle - left WO contrastMR ankle left wo IV contrast Imaging Routine Ankle instability, left Expected: 05/11/2024 (Approximate), Expires: 05/11/2025[facility] Work Phone: Comment on above:Expected: 05/11/2024 (Approximate), Expires: 05/11/2025Start: 05-11-2024 End: 11-65-9795Egzozaxd SupportNOMS NMA PODComment on above:ArrivedStart: 74-59-2007Xgxkg-19 Vaccine ( season)Covid-19 Vaccine ( season)[facility]art: 57-17-9949Tpbwrufyb vaccinationRegency Hospital [facility] East Start: 03-30-2024 End: 12-96-1226Sywhucf encounter uxkgjupnf10/28/2024 11:00 AM EDT Office Visit [facility] [address] [place] [phone] Mauro Guevara, DO [address] [facility] [place] [address] ArrivedNOMS BCP OBComment on above:ArrivedStart: 35-24-0686Nsgidhglip Health ScreeningBehavioral Health ScreeningRegency Hospital [facility] East Start: 04-27-2023 End: 56-18-6783Gdwbekrfrug [Units/volume] in Serum or PlasmaTSH BLD Lab Routine Postoperative hypothyroidism Expected: 04/27/2023, Expires: 10/24/2023[facility] Work Phone: Comment on above:Expected: 04/27/2023, Expires: 10/24/2023Start: 04-27-2023 End: 41-72-3196Hsxmjotkj (T4) free [Mass/volume] in Serum or PlasmaT4 FREE/FREE THYROX Lab Routine Postoperative hypothyroidism Expected: 04/27/2023, Expires: 06/27/2023[facility] Work Phone: Comment on above:Expected: 04/27/2023, Expires: 06/27/2023Start: 48-57-9501Hvoif-19 Vaccine ()Covid-19 Vaccine ()[facility]: 39-45-8852Shjbkqmmw vaccination [facility]ertart: 03-16-2023 End: 76-67-9633PP THYROID/PARATHYROID (POC) ENDO USE ONLYUS THYROID/PARATHYROID (POC) ENDO USE ONLY Imaging Diagnostic Routine Papillary thyroid carcinoma (HCC) Expected: 03/16/2023, Expires: 03/03/2024[facility] Work Phone: Comment on above:Expected: 03/16/2023, Expires: 03/03/2024Start: 02-12-2023 End: 59-95-2861Tmbjovbcezcdn and Thyrogobulin Ab panel - Serum or Plasma [facility] Work Phone: Comment on above:Expected: 02/12/2023, Expires: 04/14/2023Start: 79-72-1393YQYVCPWTJO ASSESSMENTDEPRESSION ASSESSMENTSt. Mary's Medical Centertart: 35-27-6271ERZBO-19 VACCINE (2 - Booster for Moderna series)COVID-19 VACCINE (2 - Booster for Moderna series)[facility]: 61-58-5941RINXP- 19 VACCINE (2 - Moderna series)COVID-19 VACCINE (2 - Moderna series)[facility] Cent[facility]art: 35-92-9452BLD TESTINGHPV TESTINGSt. Mary's Medical Centertart: 2020 Screening for malignant neoplasm of cervixHPV TestingCleMercy Health Defiance Hospitaltart: 20-52-1964ANA TESTINGPAP TESTINGSt. Mary's Medical Centertart: 84-06-7817Equurwdqs for malignant neoplasm of cervixSt. Mary's Medical Centertart: 41-44-4210Xvmbp microalbumin profileSt. Mary's Medical Centertart: 79-97-2790Yshjyteffe ScreeningDepression Screening [facility] Centertart: 71-57-2893JIUPFOLDW C SCREENINGHEPATITIS C SCREENING [facility]ertart: 15-85-4794Uintaizte C screeningHepatitis C Screening [facility] Centertart: 97-82-5457LFN SCREENINGHIV SCREENINGRegency Hospital [facility] Start: 01-91-9447IWP screeningHIV ScreeningSt. Mary's Medical Centertart: 1990 HEPATITIS B (1 of 3 - 3-dose series)HEPATITIS B (1 of 3 - 3-dose series) [facility] Cent[facility]art: 16-31-5760Kfeclavwp B Vaccine (1 of 3 - 3-dose series) Hepatitis B Vaccine (1 of 3 - 3-dose series)[facility] HospitalAMYDIA TRACHOMATIS (GENITO/STI)CHLAMYDIA TRACHOMATIS (GENITO/STI) Lab Routine Screen for STD (sexually transmitted disease) Ordered: 03/30/2024[facility] HealthComment on above:Ordered: 03/30/2024ytology Cervical or vaginal smear or scraping studyPap Smear Pathology and Cytology Routine Well woman exam with routine gynecological exam Ordered: 03/30/2024[facility] Work Phone: comment on above:Ordered: 03/30/2024Human papilloma virus DNA [Presence] in Unspecified specimen by Probe with amplificationHPV DNA probe, amplified Microbiology Routine Well woman exam with routine gynecological exam Ordered: 03/30/2024[facility] HealthComment on above:Ordered: 03/30/2024 Neisseria gonorrhoeae DNA [Presence] in Unspecified specimen by SHAMIR with probe detectionNeisseria gonorrhea DNA probe, direct Lab Routine Screen for STD (sexually transmitted disease) Ordered: 03/30/2024[facility] HealthComment on above:Ordered: 03/30/2024SURESWAB(R) ADVANCED VAGINITIS PLUS, TMASURESWAB(R) ADVANCED VAGINITIS PLUS, TMA Pathology and Cytology Routine Screen for STD (sexually transmitted disease) Ordered: 03/30/2024[facility] HealthComment on above:Ordered: 03/30/2024XR Ankle - right 3 ViewsXR ankle 3+ views right Imaging Routine Right foot pain 04/27/2024 1:01 PM [facility] Work Phone: [facility] HospitalMM OR [facility] Immunizations Immunization DateImmunizationNotesCare ZveebowaRibaxnkb65-51-5475Orshbuygc, injectable, Madin Holt Canine Kidney, preservative free, quadrivalentCorey Ismael DO Work Phone: [facility] HealthHtzhnpvexb79-73-4226ppqlewx toxoid, reduced diphtheria toxoid, and acellular pertussis vaccine, adsorbedCorey Ismael DO Work Phone: [facility] HealthTkssfmkmvc74-07-6974jksnfigjf virus vaccine, unspecified formulationSudheer Mcpherson MD Work Phone: [facility] EastRmujrl95-15-9950omzxirfpt, injectable, quadrivalent, preservative freeCorey Ismael DO Work Phone: [facility] HealthPlebnqzazg73-71-7887nyimpxo toxoid, reduced diphtheria toxoid, and acellular pertussis vaccine, adsorbedCorey Ismael DO Work Phone: [facility] HealthUbquhtnpbu02-76-4462Rkehcriqt, injectable, Madin Holt Canine Kidney, quadrivalent with preservativeCorey Ismael DO Work Phone: [facility] HealthCmdtlqwkoc41-11-0410fkmmmoklu, injectable, quadrivalent, preservative freeCorey Ismael DO Work Phone: [facility] HealthTwelpotvjr85-77-4945dpdiwpc toxoid, reduced diphtheria toxoid, and acellular pertussis vaccine, adsorbedCorey Ismael DO Work Phone: [facility] HealthTshnwldzyj02-71-0527wbuxkfany A vaccine, pediatric/adolescent dosage, 2 dose scheduleCorey Ismael DO Work Phone: [facility] HealthKpcvwvjnxp60-37-4134slxjzwjlu B vaccine, pediatric or pediatric/adolescent dosageCorey Ismael DO Work Phone: [phone] [place], [place] [id number] B vaccine, pediatric or pediatric/adolescent dosageCorey Ismael DO Work Phone: [phone] [place], [place] [id number] A vaccine, pediatric/adolescent dosage, 2 dose scheduleCorey Ismael DO Work Phone: [phone] [place], [place] [id number] B vaccine, pediatric or pediatric/adolescent dosageCorey Ismael DO Work Phone: [phone] [place], [place] [id number] polysaccharide (groups A, C, Y and W-135) diphtheria toxoid conjugate vaccine (MCV4P)Mauro Ismael DO Work Phone: [phone] [place], [place] [address]Tsfbokcije03-30-9322tfpkxyo toxoid, reduced diphtheria toxoid, and acellular pertussis vaccine, adsorbedCorey Ismael DO Work Phone: [phone] Fitzgerald StreetQinmuommqn51-48-8996yqihztyhlyt influenzae type b vaccine, PRP-T conjugateCorey Ismael DO Work Phone: [phone] [place], [place] [address]Zpsgtsjezi83-31-5014unceqkjrbi vaccine, inactivatedCorey Ismael DO Work Phone: [phone] [place], [place] [address]Mobryjpsyi64-44-6675lsbmfbpwfr, tetanus toxoids and acellular pertussis vaccineCorey Ismael DO Work Phone: [phone] [place], [place] [address]Cmnaihcpxk95-31-3315ilbryraguo vaccine, inactivatedCorey Ismael DO Work Phone: [phone] [place], [place] [address]Awtlmkwjfl20-35-9248mjllmxy, mumps and rubella virus vaccineCorey Ismael DO Work Phone: [phone] [place], [place] [address]Uivjyyhqyj93-43-1649pipzjyejtu, tetanus toxoids and acellular pertussis vaccineCorey Ismael DO Work Phone: [phone] [place], [place] [address]Vteobkqwzx05-00-1312itvgwxgbnkb influenzae type b vaccine, PRP-T conjugateCorey Ismael DO Work Phone: [phone] [place], [place] [address]Eqnsvhvexz90-39-6451zalrsgf, mumps and rubella virus vaccineCorey Ismael DO Work Phone: [phone] [place], [place] [address]Ijvzedeuba57-84-6766ozvxehfzii, tetanus toxoids and acellular pertussis vaccineCorey Ismael DO Work Phone: [facility] HospitalRbrbedrlei81-83-9090sugqoitsrox influenzae type b vaccine, PRP-T conjugateCorey Ismael DO Work Phone: [facility] HospitalPscetchbob53-61-5103jwsnjgqxtf vaccine, inactivatedCorey Ismael DO Work Phone: [facility] HospitalCzpblyakgn96-08-7939pltunvqjgm, tetanus toxoids and acellular pertussis vaccineCorey Ismael DO Work Phone: [facility] HospitalUdnxbiumru38-91-2729wbnjcyklre vaccine, inactivatedCorey Ismael DO Work Phone: [facility] HealthcareNEGATED: Highlighted row has not occurred!20-43-5759sfgwmdf toxoid, reduced diphtheria toxoid, and acellular pertussis vaccine, adsorbedDO Kemal Davis Work Phone: [facility] Payers DatePayer CategoryPayerPolicy [id number]-[id number] [id number] [id number] [id number] 2022Private Health Insurance [id number] Health Insurance [id number]. [id number] 2.16.840.1.541958.3.579.2.356 [id number] 2.16.840.1.799459.3.57[id number] 2.16.840.1.113316.3.57[id number] 2.16.840.1.091594.3.57[id number] 2..840.1.500396.3.57[id number] 2..840.1.351787.3.57[id number] 2.0.1.518987.3.57[id number] 2.840.1.833743.3.57[id number] 2.840.1.837009.3.57[id number] 2.0.1.089947.3.57[id number] 2.840.1.842054.3.57[id number] 2.840.1.035979.3.57[id number] 2.840.1.077754.3.57[id number] 2.0.1.292336.3.57[id number] 2..840.1.311067.3.57[id number] 2.840.1.138137.3.57[id number] 2.16.840.1.480231.3.579.2.727Private Health InsuranceAet Insurance Mi [id number] /[id number] 2.16.840.1.921286.3.579.2.531 Social History DateTypeDetailFacilityStart: 07-30-2021 End: 23-39-2264Bekwlpz smoking status NHISNever smoked tobacco (finding) [facility]: [id number] Assigned At BirthFeSuburban Community Hospital & Brent[facility] HospitalTobacco smoking status NHISTobacco smoking consumption unknownRegency Hospital [facility] Work Phone: Start: 63-69-9965Lwy Assigned At BirthNot on file [facility]: 01-19-2023 End: 12-50-1368Icixagv of Social functionSt. Mary's Medical Centertart: 01-19-2023 End: 21-63-8330Fmje Deprivation IndexSt. Mary's Medical Centertart: 22-99-2049Awjifsiy Score (1-100), lower number is lower gmfw75JRXQ HealthcareStart: 01-07-2023 End: 74-48-3693Orfwuvt use and exposureSmokeless tobacco non-userSt. Mary's Medical Centertart: 86-20-5797Abuknms intakeCurrent drinker of alcohol (finding) [facility]: 86-04-9614Hxuncdi Comment3 drinks per weekSt. Mary's Medical Centertart: 04-27-2024 End: 96-71-9588Ijonbknyh beverage intakeEx-drinker (finding)[facility] Start: 87-16-0593Yznibpbjk46ZPKL HealthcareStart: 06-15-2024 End: 54-81-3746HbjZsfscm (finding)[facility] CenterNEGATED: Highlighted rowStart: NINFHistory of tobacco usePassive smokerRegency Hospital [facility] Clinical Notes 01-19-2023 to 11-23-2024 Note Date & XnatVnujXmyaftjj37-59-1278 History of Present illness Narrative* JAM Howard - 11/23/2024 2:50 PM EDT The patient is doing significantly better she was excellent reconstruction of the lateral ankle ligament complex stability noted of the ankle itself. No pain able to walk and perform activities of daily living with minimal concern she may discontinue the use of the ASO brace and follow up with me p.r.n. documented in this encounterCarondelet HealthHrzekuvgrh63-54-3286 History of Present illness Narrative* JAM Howard - 09/02/2024 9:40 AM EST Images from the original note were not included. Patient: Lakeisha Linda : 1990 PCP: Danielito Gregory MD SUBJECTIVE This is a 34 y.o. female that presents today The patient is here status post lateral ankle stabilization left, repair of ruptured posterior tibial tendon with re - tubularization procedure. Postop week 6 They deny fevers, chills, nausea, vomiting, calf pain and shortness of breath. Pain level is being managed with ice elevation and pain medication. They have been relatively compliant with her postoperative care. But has been doing well since then. She has been ambulating in a pneumatic walking as directed she is doing significantly better. Allergies: No Known Allergies Past Medical History: Past Medical History: Diagnosis Date Abnormal Pap smear of cervix 10/2010 Ankle fracture, left BMI 35.0-35.9,adult History of abnormal cervical Pap smear 2009 [place] [facility] Intrauterine device surveillance Thyroid cancer (CMS/HCC) Thyroid nodule (CMS/HCC) UTI (urinary tract infection) Medications: Current Outpatient Medications: FLUoxetine (PROzac) 20 MG capsule, Take 1 capsule by mouth in the morning., Disp: , Rfl: levothyroxine (Synthroid, Levoxyl) 175 MCG tablet, Take 175 mcg by mouth., Disp: , Rfl: methylphenidate (Ritalin) 20 MG tablet, Take 20 mg by mouth 1 (one) time each day., Disp: , Rfl: Review of systems: Constitutional: Denies fever, chills, nausea, vomiting GI: Denies abdominal pain, cramping, loose stool, gastric ulcers Musculoskeletal: Denies low back pain, knee pain, systemic arthritis Neurologic: Denies burning, tingling, transient paralysis OBJECTIVE Physical Examination: DERM: Positive hair growth to b/l feet with good skin turgor noted. Negative openings in skin VASC: DP /PT were palpable bilateral. Capillary refill time < 3 seconds Digits 1-5 bilateral NEURO: [place]oda 5.07 monofilament was intact B/L. Vibratory sensation was intact B/L Musculoskeletal: Muscle strength was +5 over 5 all intrinsic and extrinsic muscles tested. NegativeHomans test noted Surgical site evaluation: The incision site is healing well without signs infection. Minimal swelling noted. Consistent with the patient's level of surgery consistent with time frame postoperatively.Appears to have excellent reconstruction of the lateral ankle ligament complex no pain noted with resisted inversion and plantar flexion. No Pain along the course signs posterior tibial tendon incision excellent muscle strength noted. Excellent range of motion of the ankle ASSESSMENT 1. Nontraumatic rupture of posterior tibial tendon, left PLAN Recommended the patient continue ambulating in a surgical boot as directed. Two weeks she may convert to an ASO brace which was dispensed to her and follow up with me in 3 weeks. She was doing quite well she is to discontinue the use of the pneumatic walking boot entirely to tolerance JAM Howard documented in this encounterCarondelet HealthXmqzvrsfab74-78-9520 History of Present illness Narrative* JAM Howard - 08/12/2024 11:20 AM EST Images from the original note were not included. Patient: Lakeisha Linda : 1990 PCP: Danielito Gregory MD SUBJECTIVE This is a 34 y.o. female that presents today The patient is here status post lateral ankle stabilization left, repair of ruptured posterior tibial tendon with re - tubularization procedure. Postop week 4. They deny fevers, chills, nausea, vomiting, calf pain and shortness of breath. Pain level is being managed with ice elevation and pain medication. They have been relatively compliant with her postoperative care. But has been doing well since then. She has been ambulating in a pneumatic walkingas directed she is doing significantly Allergies: No Known Allergies Past Medical History: Past Medical History: Diagnosis Date Abnormal Pap smear of cervix 10/2010 Ankle fracture, left BMI 35.0-35.9,adult History of abnormal cervical Pap smear 2009 [place] [facility] Intrauterine device surveillance Thyroid cancer (CMS/HCC) Thyroid nodule (CMS/HCC) UTI (urinary tract infection) Medications: Current Outpatient Medications: FLUoxetine (PROzac) 20 MG capsule, Take 1 capsule by mouth in the morning., Disp: , Rfl: levothyroxine (Synthroid, Levoxyl) 175 MCG tablet, Take 175 mcg by mouth., Disp: , Rfl: methylphenidate (Ritalin) 20 MG tablet, Take 20 mg by mouth 1 (one) time each day., Disp: , Rfl: Review of systems: Constitutional: Denies fever, chills, nausea, vomiting GI: Denies abdominal pain, cramping, loose stool, gastric ulcers Musculoskeletal: Denies low back pain, knee pain, systemic arthritis Neurologic: Denies burning, tingling, transient paralysis OBJECTIVE Physical Examination: DERM: Positive hair growth to b/l feet with good skin turgor noted. Negative openings in skin VASC: DP /PT were palpable bilateral. Capillary refill time < 3 seconds Digits 1-5 bilateral NEURO: [place]oda 5.07 monofilament was intact B/L. Vibratory sensation was intact B/L Musculoskeletal: Muscle strength was +5 over 5 all intrinsic and extrinsic muscles tested. NegativeHomans test noted Surgical site evaluation: The incision site is healing well without signs infection. Minimal swelling noted. Consistent with the patient's level of surgery consistent with time frame postoperatively.Appears to have excellent reconstruction of the lateral ankle ligament complex no pain noted with resisted inversion and plantar flexion. Pain along the course signs posterior tibial tendon incision ASSESSMENT 1. Ankle instability, left 2. Nontraumatic rupture of posterior tibial tendon, left 3. Contracture, ankle, left PLAN Recommended the patient continue ambulating in a surgical boot as directed. Two weeks she may convert to an ASO brace which was dispensed to her and follow up with me in 3 weeks. ASO, Gauntlet Brace, Prefabricated, (L1902) was dispensed, fitted, and adjusted at this visit. The function of the device is to provide support, decrease edema, control motion at the ankle, and subtalar joints. It will redistribute pressure and allow more comfortable weight-bearing and better support. It is for increased stability of the ankle joint and subtalar joint. The device is medically necessary for the condition, symptoms and diagnosis. The patient was educated as to proper use and care, and this was reviewed in detail. Written instructions and warranty information were given with thedevice. The current supplier standards were given to the patient. JAM Howard documented in this encounterCarondelet HealthJlmvzxxpwn19-96-1293 Evaluation note* Diagnosis Onset Date Resolution Status Admit Date Acquired hypothyroidism acuteJanuary 2024 2:13pmAnxiety and depressionacuteJanuary 2024 2:13pm Attention deficit disorderacuteJanuary 2024 2:13pmBMI 39.0-39.9,adultacute August 09, 2024 2:13pmObstructive sleep apneaacuteJanuary 2024 2:13pm Acquired hypothyroidismacuteMarch 2024 11:35amAnxiety and depressionacute October 25, 2024 11:35amAttention deficit disorderacuteMarch 2024 11:35am BMI 39.0-39.9,adultacuteMarch 2024 11:35amObstructive sleep apneaacute October 25, 2024 11:35am [facility] Work Phone: 1(790) 748-494012-27-2024 History of Present illness Narrative* JAM Howard - 07/29/2024 11:00 AM EST Images from the original note were not included. Patient: Lakeisha Linda : 1990 PCP: Danielito Gregory MD SUBJECTIVE This is a 34 y.o. female that presents today The patient is here status post lateral ankle stabilization left, repair of ruptured posterior tibial tendon with re - tubularization procedure. Postop week 2. They deny fevers, chills, nausea, vomiting, calf pain and shortness of breath. Pain level is being managed with ice elevation and pain medication. They have been relatively compliant with her postoperative care. Patient states she did fall recently. But has been doing well since then. Allergies: No Known Allergies Past Medical History: Past Medical History: Diagnosis Date Abnormal Pap smear of cervix 10/2010 Ankle fracture, left BMI 35.0-35.9,adult History of abnormal cervical Pap smear 2009 [place] W[facility] Intrauterine device surveillance Thyroid cancer (CMS/HCC) Thyroid nodule (CMS/HCC) UTI (urinary tract infection) Medications: Current Outpatient Medications: FLUoxetine (PROzac) 20 MG capsule, Take 1 capsule by mouth in the morning., Disp: , Rfl: levothyroxine (Synthroid, Levoxyl) 175 MCG tablet, Take 175 mcg by mouth., Disp: , Rfl: methylphenidate (Ritalin) 20 MG tablet, Take 20 mg by mouth 1 (one) time each day., Disp: , Rfl: Review of systems: Constitutional: Denies fever, chills, nausea, vomiting GI: Denies abdominal pain, cramping, loose stool, gastric ulcers Musculoskeletal: Denies low back pain, knee pain, systemic arthritis Neurologic: Denies burning, tingling, transient paralysis OBJECTIVE Physical Examination: DERM: Positive hair growth to b/l feet with good skin turgor noted. Negative openings in skin VASC: DP /PT were palpable bilateral. Capillary refill time < 3 seconds Digits 1-5 bilateral NEURO: [place]oda 5.07 monofilament was intact B/L. Vibratory sensation was intact B/L Musculoskeletal: Muscle strength was +5 over 5 all intrinsic and extrinsic muscles tested. NegativeHomans test noted Surgical site evaluation: The incision site is healing well without signs infection. Minimal swelling noted. Consistent with the patient's level of surgery consistent with time frame postoperatively.Sutures remain intact without signs of dehiscence. Appears to have excellent reconstruction of the lateral ankle ligament complex no pain noted with resisted inversion and plantar flexion. Of the posterior tibial tendon ASSESSMENT 1. Ankle instability, left 2. Nontraumatic rupture of posterior tibial tendon, left PLAN Today we applied a dry sterile dressing with betadine to the incision site. I removed the sutures and applied Steri-Strips today. Covered the incision with 4x4s, Kerlix and Robbin bandage. The Patient is to continue ice and elevation on a regular basis. She may remove the dressing in 5 being begin bathing been Steri- Strips to reapply Steri-Strips of the incision site. She is to continue to rest ice and elevate. He is to continue with the 81 mg aspirin per day and follow up with me in 2 weeks for reassessment JAM Howard documented in this encounterCarondelet HealthGmwjvzbqyc92-07-7864 History of Present illness Narrative* JAM Howard - 07/19/2024 9:30 AM EST Patient: Lakeisha Linda : 1990 PCP: Danielito Gregory MD SUBJECTIVE This is a 34 y.o. female that presents today The patient is here status post lateral ankle stabilization left, repair of ruptured posterior tibial tendon with re - tubularization procedure. Postop week 1. They deny fevers, chills, nausea, vomiting, calf pain and shortness of breath. Pain level is being managed with ice elevation and pain medication. They have been relatively compliant with her postoperative care. Allergies: No Known Allergies Past Medical History: Past Medical History: Diagnosis Date Abnormal Pap smear of cervix 10/2010 Ankle fracture, left BMI 35.0-35.9,adult History of abnormal cervical Pap smear 2009 [place] [facility] Intrauterine device surveillance Thyroid cancer (CMS/HCC) Thyroid nodule (CMS/HCC) UTI (urinary tract infection) Medications: Current Outpatient Medications: FLUoxetine (PROzac) 20 MG capsule, Take 1 capsule by mouth in the morning., Disp: , Rfl: levothyroxine (Synthroid, Levoxyl) 175 MCG tablet, Take 175 mcg by mouth., Disp: , Rfl: methylphenidate (Ritalin) 20 MG tablet, Take 20 mg by mouth 1 (one) time each day., Disp: , Rfl: Review of systems: Constitutional: Denies fever, chills, nausea, vomiting GI: Denies abdominal pain, cramping, loose stool, gastric ulcers Musculoskeletal: Denies low back pain, knee pain, systemic arthritis Neurologic: Denies burning, tingling, transient paralysis OBJECTIVE Physical Examination: DERM: Positive hair growth to b/l feet with good skin turgor noted. Negative openings in skin VASC: DP /PT were palpable bilateral. Capillary refill time < 3 seconds Digits 1-5 bilateral NEURO: [place]oda 5.07 monofilament was intact B/L. Vibratory sensation was intact B/L Musculoskeletal: Muscle strength was +5 over 5 all intrinsic and extrinsic muscles tested. NegativeHomans test noted Surgical site evaluation: The incision site is healing well without signs infection. Minimal swelling noted. Consistent with the patient's level of surgery consistent with time frame postoperatively.Sutures remain intact without signs of dehiscence. ASSESSMENT 1. Ankle instability, left 2. Nontraumatic rupture of posterior tibial tendon, left PLAN Today we applied a dry sterile dressing with betadine to the incision site. Covered the incision with 4x4s, Kerlix and Robbin bandage. The Patient is to continue ice and elevation on a regular basis. Placed the patient into a short leg Hazel compressive dressing continue nonweightbearing status followup with me in 1 week for possible suture removal. JAM Howard documented in this encounterCarondelet [id number] History of Present illness Narrative* JAM Howard - 07/05/2024 9:30 AM EST Images from the original note were not included. Patient: Lakeisha Linda : 1990 PCP: Danielito Gregory MD SUBJECTIVE This is a 34 y.o. female that presents today with a chief complaint of painful lateral aspect of the Left ankle. The pain is located laterally at the level of the subtalar joint. In the ankle joint and medially of the posterior tibial tendon. 4 years ago she was standing on a chair painting in the legs broke twisted her left ankle and has developed significant instability of the ankle pain since the incident. They have noticed significant swelling and pain with ambulation. They have attempted numerous conservative therapies including shoe gear modifications anti-inflammatory medications rest ice and elevation to no avail Bracing shoe gear modifications to no avail.. Patient states that she had an ankle fracture in the past and he is developed significant instability and pain about the left ankle and subtalar joint region posterior tibial tendon. She is difficulty walking on uneven terrain that he has had chronic ankle pain in the left And instability. On a scale of 1-10 the patient rates the pain as an 8 with 10 being the worst pain of the lives. She had a cortisone injection to the subtalar joint last visit which did not help. She is concerned with the instability of the ankle. She underwent an MRI which revealed: MRI ANKLE W/O CONTRAST LEFT Exam Date/Time: 05/24/2024 12:21 EDT Reason for Exam: [id number] Report IMPRESSION: PARTIAL-THICKNESS TEAR OF TIBIALIS POSTERIOR TENDON. DEGENERATIVE CHANGES OF THE TIBIOTALAR JOINT EXAM: MRI Ankle w/o Contrast Left HISTORY: Ankle pain. Ankle fracture in 2019 TECHNIQUE: Multisequence multiplanar MRI of the ankle was performed without contrast COMPARISON: None available FINDINGS: Achilles tendon is intact. The visualized plantar fascia is intact and is without thickening or nodularity. Partial-thickness tear of tibialis posterior tendon for length of approximately 1.5 cm appears to involve up to 50% thickness of the tendon and is centered at the level of the neck of the talus. Mild adjacent soft tissue edema. The flexor hallucis longus and flexor digitorum longus tendons are intact. No space-occupying lesion within the tarsal tunnel. Peroneus longus and peroneus brevis tendons are intact. Extensor tendons are intact. The anterior and posterior tibiofibular ligaments, anterior and posterior talofibular ligaments, and calcaneofibular ligament are intact. Superficial and deep fibers of the deltoid ligament are intact. Spring ligament is intact. Sinus tarsi fat is preserved. There are tiny full-thickness cartilage defects of the medial tibial plafond with formation of tiny subcortical cysts and mild subcortical bone marrow edema. Tiny subcortical cysts of the lateral aspect of the medial talar dome likely secondary to occult full-thickness cartilage fissure. No ankle joint effusion. No evidence of fracture or stress reaction of the visualized bones. Allergies: No Known Allergies Past Medical History: Past Medical History: Diagnosis Date Abnormal Pap smear of cervix 10/2010 Ankle fracture, left BMI 35.0-35.9,adult History of abnormal cervical Pap smear 2009 [place] [facility] Intrauterine device surveillance Thyroid cancer (CMS/HCC) Thyroid nodule (CMS/HCC) UTI (urinary tract infection) Medications: Current Outpatient Medications: FLUoxetine (PROzac) 20 MG capsule, Take 1 capsule by mouth in the morning., Disp: , Rfl: levothyroxine (Synthroid, Levoxyl) 175 MCG tablet, Take 175 mcg by mouth., Disp: , Rfl: methylphenidate (Ritalin) 20 MG tablet, Take 20 mg by mouth 1 (one) time each day., Disp: , Rfl: Review of systems: Constitutional: Denies fever, chills, nausea, vomiting GI: Denies abdominal pain, cramping, loose stool, gastric ulcers Musculoskeletal: Denies low back pain, knee pain, systemic arthritis Neurologic: Denies burning, tingling, transient paralysis OBJECTIVE Physical Examination: DERM: Positive hair growth to b/l feet with good skin turgor noted. Negative openings in skin Thereis pinpoint bleeding noted upon debridement. Pain with lateral compression. No skin lines running through the lesion. The lesions are multiple and sporadic. VASC: DP /PT were palpable bilateral. Capillary refill time < 3 seconds Digits 1-5 bilateral NEURO: [place]oda 5.07 monofilament was intact B/L. Vibratory sensation was intact B/L Musculoskeletal: Muscle strength was +5 over 5 all intrinsic and extrinsic muscles tested. There issignificant pain with direct palpation of the sinus tarsi pain with range of motion of the subtalarjoint. Mild swelling noted over the sinus tarsi region. He was fusiform swelling noted at the posterior tibial tendon posterior to the medial malleolusThere is mild tenderness noted over the ATF and CF ligament left foot. Unable to elicit an anterior drawer test secondary to guarding. No crepitus noted with range of motion of the ankle or subtalar joint. Significant hypermobility noted in terms of inversion of the left ankle. Mild degenerative arthritis of the lateral gutter of the ankle Patient has a mild gastrocnemius-soleus equinus with mild tenderness noted at the level of the Achilles tendon. No palpable deficits noted within the Achilles tendon. No pain with range of motion of the ankle or subtalar joint. ASSESSMENT 1. Ankle instability, left 2. Nontraumatic rupture of posterior tibial tendon, left PLAN The patient was educated on the MRI findings explained to her she has a partial- thickness tear of the posterior tibial tendon MRI did not reveal rupture of the ankle ligament complex however secondary to her ankle sprain an ankle fracture of the past we feel that the hypermobility of her ankle may be a functional type of hypermobility in the ankle ligaments are attenuated. She does have severe instability and an inability to walk and I uneven terrain she states the ASO brace does help she wishes to have a more definitive procedure recommending repair of the longitudinal tear of the posterior tibial tendon with a lateral ankle stabilization via a modified Brostrom technique The patient was educated on the pre, kathryn, postoperative course of the procedure in great detail. We discussed further conservative therapies which the patient has attempted and has failed. I discussed the surgical procedure in great detail including the risks and possible complications. We discussed the following complications in great detail including but not limited to: Pain, infection, prolonged swelling, numbn ess, tingling, burning, nonhealing wound, nonunion, malunion, chronic pain, development of complex regional pain syndrome, development of deep venous thrombosis. Patient fully understood all possiblerisks and complications. All questions have been asked and answered. Consent forms have been signedtoday. JAM Howard documented in this encounterCarondelet [id number] Telephone encounter Note* Telephone Encounter - Maria Isabel Gutierrez MA - 06/10/2024 8:33 AM EST Requester: Patient Patients last Endocrinology visit occurred 04-27-23. Follow-up evaluation has been established Upcoming Endocrinology Appointments - Next 365 Days No appointments to display . Requested Prescriptions Pending Prescriptions Disp Refills levothyroxine (SYNTHROID) 200 mcg tablet 90 tablet 0 Sig: Take 1 tablet by mouth once daily. If patient is due for an appointment please route to provider for refill consideration and also to the endo scheduling pool. PSS NOTE: Patient needs scheduled appointment Yes [facility]11-08-2024 Miscellaneous Notes* Telephone Encounter - Maria Isabel Gutierrez MA - 06/10/2024 8:33 AM EST Requester: Patient Patients last Endocrinology visit occurred 04-27-23. Follow-up evaluation has been established Upcoming Endocrinology Appointments - Next 365 Days No appointments to display . Requested Prescriptions Pending Prescriptions Disp Refills levothyroxine (SYNTHROID) 200 mcg tablet 90 tablet 0 Sig: Take 1 tablet by mouth once daily. If patient is due for an appointment please route to provider for refill consideration and also to the endo scheduling pool. PSS NOTE: Patient needs scheduled appointment Yes [facility] Telephone encounter Note * Telephone Encounter - Calderon Webber DPM FACFAS - 05/31/2024 8:30 PM EDT Phone #: [phone] Insurance: Payor: MIRNA / Plan[place] / Product Type: *No Product type* / Preferred Date/Time: First Available [x] LEILANI [] Patient Name: Lakeisha Linda : 1990 Surgeon: Dr. Calderon Webber [x] Dr. Trent Webber [] Location: [facility] [x] [facility] [place] [] [facility] [] Procedure(s): repair longitudinal tear posterior tibial tendon left, lateral ankle stabilization left CPT Code(s): 49902, 73665 Diagnosis: ICD-10-CM 1. Ankle instability, left M25.372 2. Nontraumatic rupture of posterior tibial tendon, left M66.872 Procedure Time: 30 min [] 1 Hour [x] 1.5 Hour [] 2 Hours [] Anesthesia: MAC [x] General [] Local [] Popliteal Block [x] Position: Supine [x] Prone [] Lateral [] Special Requests: C-arm [] Pulse Lavage [] VersaJet [] Special Equipment: Arthrex plate /screws [] Internal brace [] Arthrex FiberTak [x] Biopro Staple []Biopro Cassius Impant [] Other [] Pre-op Orders: Abx 30 min Prior: 2g Ancef [x] Clindamycin 600mg [] Vancomycin 1 g [] Post-op WB: Partial WB [] Non-WB [x] Crutches [] Walker [] Knee Scooter [] PCP Clearance: Danielito Gregory MD Other Clearance: Cardiology [] Rheumatology [] Other [] NOMS [id number] Miscellaneous Notes* Telephone Encounter - JAM Howard - 05/31/2024 8:30 PM EDT Phone #: [phone] [facility]: [facility] / Plan: [employer] [place] / Product Type: *No Product type* / Preferred Date/Time: First Available [x] LEILANI [] Patient Name: Lakeisha Linda : 1990 Surgeon: Dr. Calderon Webber [x] Dr. Trent Webber [] Location: [facility] [x] [facility] [place] [] [facility] [] Procedure(s): repair longitudinal tear posterior tibial tendon left, lateral ankle stabilization left CPT Code(s): 20074, 26663 Diagnosis: ICD-10-CM 1. Ankle instability, left M25.372 2. Nontraumatic rupture of posterior tibial tendon, left M66.872 Procedure Time: 30 min [] 1 Hour [x] 1.5 Hour [] 2 Hours [] Anesthesia: MAC [x] General [] Local [] Popliteal Block [x] Position: Supine [x] Prone [] Lateral [] Special Requests: C-arm [] Pulse Lavage [] VersaJet [] Special Equipment: Arthrex plate /screws [] Internal brace [] Arthrex FiberTak [x] Biopro Staple []Biopro Cassius Impant [] Other [] Pre-op Orders: Abx 30 min Prior: 2g Ancef [x] Clindamycin 600mg [] Vancomycin 1 g [] Post-op WB: Partial WB [] Non-WB [x] Crutches [] Walker [] Knee Scooter [] PCP Clearance: Danielito Gregory MD Other Clearance: Cardiology [] Rheumatology [] Other [] documented in this encounterNOSalem Memorial District [id number] History of Present illness Narrative* JAM Howard - 05/31/2024 10:50 AM EDT Images from the original note were not included. Patient: Lakeisha Linda : 1990 PCP: Danielito Gregory MD SUBJECTIVE This is a 34 y.o. female that presents today with a chief complaint of painful lateral aspect of the Left ankle. The pain is located laterally at the level of the subtalar joint. In the ankle joint and medially of the posterior tibial tendon. 4 years ago she was standing on a chair painting in the legs broke twisted her left ankle and has developed significant instability of the ankle pain since the incident. They have noticed significant swelling and pain with ambulation. They have attempted numerous conservative therapies including shoe gear modifications anti-inflammatory medications rest ice and elevation to no avail Bracing shoe gear modifications to no avail.. Patient states that she had an ankle fracture in the past and he is developed significant instability and pain about the left ankle and subtalar joint region posterior tibial tendon. She is difficulty walking on uneven terrain that he has had chronic ankle pain in the left And instability. On a scale of 1-10 the patient rates the pain as an 8 with 10 being the worst pain of the lives. She had a cortisone injection to the subtalar joint last visit which did not help. She is concerned with the instability of the ankle. She underwent an MRI which revealed: MRI ANKLE W/O CONTRAST LEFT Exam Date/Time: 05/24/2024 12:21 EDT Reason for Exam: M25.372 Report IMPRESSION: PARTIAL-THICKNESS TEAR OF TIBIALIS POSTERIOR TENDON. DEGENERATIVE CHANGES OF THE TIBIOTALAR JOINT EXAM: MRI Ankle w/o Contrast Left HISTORY: Ankle pain. Ankle fracture in 2019 TECHNIQUE: Multisequence multiplanar MRI of the ankle was performed without contrast COMPARISON: None available FINDINGS: Achilles tendon is intact. The visualized plantar fascia is intact and is without thickening or nodularity. Partial-thickness tear of tibialis posterior tendon for length of approximately 1.5 cm appears to involve up to 50% thickness of the tendon and is centered at the level of the neck of the talus. Mild adjacent soft tissue edema. The flexor hallucis longus and flexor digitorum longus tendons are intact. No space-occupying lesion within the tarsal tunnel. Peroneus longus and peroneus brevis tendons are intact. Extensor tendons are intact. The anterior and posterior tibiofibular ligaments, anterior and posterior talofibular ligaments, and calcaneofibular ligament are intact. Superficial and deep fibers of the deltoid ligament are intact. Spring ligament is intact. Sinus tarsi fat is preserved. There are tiny full-thickness cartilage defects of the medial tibial plafond with formation of tiny subcortical cysts and mild subcortical bone marrow edema. Tiny subcortical cysts of the lateral aspect of the medial talar dome likely secondary to occult full-thickness cartilage fissure. No ankle joint effusion. No evidence of fracture or stress reaction of the visualized bones. Report Ordering Provider: Calderon Webber Dictated: 05/26/2024 2:03 pm Mike Ruiz DO Signed (Electronic Signature): 05/26/2024 2:03 pm Signed by: Mike Ruiz DO Transcribed by: CRISTHIAN Technologist: ALVIN Technical Comments None Allergies: No Known Allergies Past Medical History: Past Medical History: Diagnosis Date Abnormal Pap smear of cervix 10/2010 Ankle fracture, left BMI 35.0-35.9,adult History of abnormal cervical Pap smear 2009 [place] WNL Intrauterine device surveillance Thyroid cancer (CMS/HCC) Thyroid nodule (CMS/HCC) UTI (urinary tract infection) Medications: Current Outpatient Medications: fluorouracil (Efudex) 5 % cream, Apply 1 application topically in the morning and 1 application before bedtime. APPLIED TO AFFECTED AREA WITH Q-TIP AND COVER WITH A BAND-AID WERE DUCT TAPE BID., Disp: 30 g, Rfl: 1 FLUoxetine (PROzac) 20 MG capsule, Take 1 capsule by mouth in the morning., Disp: , Rfl: levothyroxine (Synthroid, Levoxyl) 175 MCG tablet, Take 175 mcg by mouth., Disp: , Rfl: methylphenidate (Ritalin) 20 MG tablet, Take 20 mg by mouth 1 (one) time each day., Disp: , Rfl: Review of systems: Constitutional: Denies fever, chills, nausea, vomiting GI: Denies abdominal pain, cramping, loose stool, gastric ulcers Musculoskeletal: Denies low back pain, knee pain, systemic arthritis Neurologic: Denies burning, tingling, transient paralysis OBJECTIVE Physical Examination: DERM: Positive hair growth to b/l feet with good skin turgor noted. Negative openings in skin Thereis pinpoint bleeding noted upon debridement. Pain with lateral compression. No skin lines running through the lesion. The lesions are multiple and sporadic. VASC: DP /PT were palpable bilateral. Capillary refill time < 3 seconds Digits 1-5 bilateral NEURO: [place] Rhoda 5.07 monofilament was intact B/L. Vibratory sensation was intact B/L Musculoskeletal: Muscle strength was +5 over 5 all intrinsic and extrinsic muscles tested. There issignificant pain with direct palpation of the sinus tarsi pain with range of motion of the subtalarjoint. Mild swelling noted over the sinus tarsi region. He was fusiform swelling noted at the posterior tibial tendon posterior to the medial malleolusThere is mild tenderness noted over the ATF and CF ligament left foot. Unable to elicit an anterior drawer test secondary to guarding. No crepitus noted with range of motion of the ankle or subtalar joint. Significant hypermobility noted in terms of inversion of the left ankle. Mild degenerative arthritis of the lateral gutter of the ankle Patient has a mild gastrocnemius-soleus equinus with mild tenderness noted at the level of the Achilles tendon. No palpable deficits noted within the Achilles tendon. No pain with range of motion of the ankle or subtalar joint. ASSESSMENT 1. Ankle instability, left 2. Nontraumatic rupture of posterior tibial tendon, left PLAN The patient was educated on the MRI findings explained to her she has a partial- thickness tear of the posterior tibial tendon MRI did not reveal rupture of the ankle ligament complex however secondary to her ankle sprain an ankle fracture of the past we feel that the hypermobility of her ankle may be a functional type of hypermobility in the ankle ligaments are attenuated. She does have severe instability and an inability to walk and I uneven terrain she states the ASO brace does help she wishes to have a more definitive procedure recommending repair of the longitudinal tear of the posterior tibial tendon with a lateral ankle stabilization via a modified Brostrom technique The patient was educated on the pre, kathryn, postoperative course of the procedure in great detail. We discussed further conservative therapies which the patient has attempted and has failed. I discussed the surgical procedure in great detail including the risks and possible complications. We discussed the following complications in great detail including but not limited to: Pain, infection, prolonged swelling, numbn ess, tingling, burning, nonhealing wound, nonunion, malunion, chronic pain, development of complex regional pain syndrome, development of deep venous thrombosis. Patient fully understood all possiblerisks and complications. All questions have been asked and answered. JAM Howard documented in this encounterCarondelet [id number] History of Present illness Narrative* JAM Howard - 05/11/2024 1:00 PM EDT Images from the original note were not included. Patient: Lakeisha Linda : 1990 PCP: Danielito Gregory MD SUBJECTIVE This is a 34 y.o. female that presents today with a chief complaint of painful lateral aspect of the Left foot The pain is located laterally at the level of the subtalar joint. In the ankle joint. Proximally 4 years ago she was standing on a chair painting in the legs broke twisted her left ankle and has developed significant instability of the ankle pain since the incident. They have noticed significant swelling and pain with ambulation. They have attempted numerous conservative therapies including shoe gear modifications anti-inflammatory medications rest ice and elevation to no avail Bracing shoe gear modifications to no avail.. Patient states that she had an ankle fracture in the past and he is developed significant instability and pain about the left ankle and subtalar joint region. She is difficulty walking on uneven terrain that he has had chronic ankle pain in the left And instability. On a scale of 1-10 the patient rates the pain as an 8 with 10 being the worst pain of the lives. She had a cortisone injection to the subtalar joint last visit which did not help. She is concerned with the instability of the ankle. 2nd chief complaint This patient presents today a chief complaint of a painful lesion plantar aspect of the foot. They state the lesion has been slow growing and has multipled. The area is painful and causes marked limitation in ambulation secondary to the pain. They have attempted gbrm-ctg-ojmhppyksbm- inflammatory medications as well as rrif-cyh-midsnlj wart treatment to no avail. Allergies: No Known Allergies Past Medical History: Past Medical History: Diagnosis Date Abnormal Pap smear of cervix 10/2010 Ankle fracture, left BMI 35.0-35.9,adult History of abnormal cervical Pap smear 2010 [place] WNL Intrauterine device surveillance Thyroid cancer (CMS/HCC) Thyroid nodule (CMS/HCC) UTI (urinary tract infection) Medications: Current Outpatient Medications: fluorouracil (Efudex) 5 % cream, Apply 1 application topically in the morning and 1 application before bedtime. APPLIED TO AFFECTED AREA WITH Q-TIP AND COVER WITH A BAND-AID WERE DUCT TAPE BID., Disp: 30 g, Rfl: 1 FLUoxetine (PROzac) 20 MG capsule, Take 1 capsule by mouth in the morning., Disp: , Rfl: levothyroxine (Synthroid, Levoxyl) 175 MCG tablet, Take 175 mcg by mouth., Disp: , Rfl: methylphenidate (Ritalin) 20 MG tablet, Take 20 mg by mouth 1 (one) time each day., Disp: , Rfl: Review of systems: Constitutional: Denies fever, chills, nausea, vomiting GI: Denies abdominal pain, cramping, loose stool, gastric ulcers Musculoskeletal: Denies low back pain, knee pain, systemic arthritis Neurologic: Denies burning, tingling, transient paralysis OBJECTIVE Physical Examination: DERM: Positive hair growth to b/l feet with good skin turgor noted. Negative openings in skin Thereis pinpoint bleeding noted upon debridement. Pain with lateral compression. No skin lines running through the lesion. The lesions are multiple and sporadic. VASC: DP /PT were palpable bilateral. Capillary refill time < 3 seconds Digits 1-5 bilateral NEURO: [place] Rhoda 5.07 monofilament was intact B/L. Vibratory sensation was intact B/L Musculoskeletal: Muscle strength was +5 over 5 all intrinsic and extrinsic muscles tested. There issignificant pain with direct palpation of the sinus tarsi pain with range of motion of the subtalarjoint. Mild swelling noted over the sinus tarsi region. There is mild tenderness noted over the ATFand CF ligament left foot. Unable to elicit an anterior drawer test secondary to guarding. No crepitus noted with range of motion of the ankle or subtalar joint. Significant hypermobility noted in terms of inversion of the left ankle. Mild degenerative arthritis of the lateral gutter of the ankle Patient has a mild gastrocnemius-soleus equinus with mild tenderness noted at the level of the Achilles tendon. No palpable deficits noted within the Achilles tendon. No pain with range of motion of the ankle or subtalar joint. Radiographs: reviewed AP/MO/LAT: Three views were taken today AP/MORT/LAT Ankle: No fractures or dislocations seen mild degenerative arthritis noted of the left ankle. ASSESSMENT 1. Ankle instability, left 2. Verruca plantaris 3. Neoplasm of uncertain behavior of skin 4. Pain in left foot 5. Benign neoplasm of unknown origin PLAN The patient was educated on the etiology of sinus tarsi syndrome as well as capsulitis of the subtalar joint. He is also educated her on significant hypermobility of the left ankle secondary to loss of integrity of the lateral ankle ligament complex. Explained to her that both of these issues related to 1 another. This Also developed secondary to a previous ankle fracture from several years ago. The patient has attempted numerous conservative therapies including racing shoe gear modifications immobilization physical therapy to no avail. I am recommending the patient undergo an MRI to evaluatethe integrity lateral ankle ligament complex. I briefly discussed surgical intervention including the need for possible lateral ankle stabilization secondary to her severe inability to walk on uneventerrain without twisting her ankle. She will follow up with me after the MRI Today I debrided the lesions to the level of pinpoint bleeding. I applied an application of 60 percent salicylic acid to the lesions. Covered with an occlusive dressing. She is to continue with the Efudex daily JAM Howard documented in this encounterCarondelet [id number] Telephone encounter Note* Telephone Encounter - Nicole Hickman - 05/11/2024 12:53 PM EDT Pt would like to hold off for now [facility] [id number] Miscellaneous Notes* Telephone Encounter - Nicole Hickman - 05/11/2024 12:53 PM EDT Pt would like to hold off for now * Telephone Encounter - Nicole Hickman - 05/10/2024 2:58 PM EDT Pt notified of benefits. Aware she has to call [employer] for an update. May try to cancel [employer]. * Telephone Encounter - Nicole iHckman - 05/05/2024 9:23 AM EDT Left msg for return call * Telephone Encounter - Nicole Hickman - 04/29/2024 10:59 AM EDT Left msg for return call Per Aimee with [employer], ref # [id number] *NON COVERED BENEFITS $470 SELF PAY Per Munir with [employer], ref # [id number] 1 pair per 2 years (non purchased) [place] ? Pt needs to call to update CO[place] documented in this encounterCarondelet [id number] Telephone encounter Note* Telephone Encounter - Nicole Hickman - 05/10/2024 2:58 PM EDT Pt notified of benefits. Aware she has to call [employer] for an update. May try to cancel [employer]. [facility] [id number] Telephone encounter Note* Telephone Encounter - Nicole Hickman - 05/05/2024 9:23 AM EDT Left msg for return call [facility] [id number] Telephone encounter Note* Telephone Encounter - Nicole Hickman - 04/29/2024 10:59 AM EDT Left msg for return call Per Aimee with [employer], ref # [id number] *NON COVERED BENEFITS $470 SELF PAY Per Munir with [employer], ref # [id number] 1 pair per 2 years (non purchased) [place] ? Pt needs to call to update COB [facility]ondelet [id number] History of Present illness Narrative* Calderon Webber DPM FACFAS - 04/27/2024 1:00 PM EDT Patient: Lakeisha Linda : 1990 PCP: Danielito Gregory MD SUBJECTIVE This is a 34 y.o. female that presents today with a chief complaint of painful lateral aspect of the Left foot The pain is located laterally at the level of the subtalar joint. They have noticed significant swelling and pain with ambulation. They deny history of trauma to the area. They have attempted numerous conservative therapies including shoe gear modifications anti- inflammatory medications rest ice and elevation to no avail. Patient states that she had an ankle fracture in the past and heis developed significant instability and pain about the left ankle and subtalar joint region. She is difficulty walking on uneven terrain that he has had chronic ankle pain in the left. On a scale of1-10 the patient rates the pain as an 8 with 10 being the worst pain of the lives. Allergies: No Known Allergies Past Medical History: Past Medical History: Diagnosis Date Abnormal Pap smear of cervix 10/2010 Ankle fracture, left BMI 35.0-35.9,adult History of abnormal cervical Pap smear 2009 [place] WNL Intrauterine device surveillance Thyroid cancer (CMS/HCC) Thyroid nodule (CMS/HCC) UTI (urinary tract infection) Medications: Current Outpatient Medications: FLUoxetine (PROzac) 20 MG capsule, Take 1 capsule by mouth in the morning., Disp: , Rfl: levothyroxine (Synthroid, Levoxyl) 175 MCG tablet, Take 175 mcg by mouth., Disp: , Rfl: methylphenidate (Ritalin) 20 MG tablet, Take 20 mg by mouth 1 (one) time each day., Disp: , Rfl: methylPREDNISolone (Medrol Dospak) 4 MG tablets, Take 1 tablet (4 mg) by mouth 1 (one) time for 1 dose Follow schedule on package instructions, Disp: 1 each, Rfl: 0 Review of systems: Constitutional: Denies fever, chills, nausea, vomiting GI: Denies abdominal pain, cramping, loose stool, gastric ulcers Musculoskeletal: Denies low back pain, knee pain, systemic arthritis Neurologic: Denies burning, tingling, transient paralysis OBJECTIVE Physical Examination: DERM: Positive hair growth to b/l feet with good skin turgor noted. Negative openings in skin VASC: DP /PT were palpable bilateral. Capillary refill time < 3 seconds Digits 1-5 bilateral NEURO: [place] Rhoda 5.07 monofilament was intact B/L. Vibratory sensation was intact B/L Musculoskeletal: Muscle strength was +5 over 5 all intrinsic and extrinsic muscles tested. There issignificant pain with direct palpation of the sinus tarsi pain with range of motion of the subtalarjoint. Mild swelling noted over the sinus tarsi region. There is mild tenderness noted over the ATFand CF ligament left foot. Unable to elicit an anterior drawer test secondary to guarding. No crepitus noted with range of motion of the ankle or subtalar joint. Significant hypermobility noted in terms of inversion of the left ankle. Mild degenerative arthritis of the lateral gutter of the ankle Patient has a mild gastrocnemius-soleus equinus with mild tenderness noted at the level of the Achilles tendon. No palpable deficits noted within the Achilles tendon. No pain with range of motion of the ankle or subtalar joint. Radiographs: AP/MO/LAT: Three views were taken today AP/MORT/LAT Ankle: No fractures or dislocations seen mild degenerative arthritis noted of the left ankle. Diagnostic ultrasound: Diagnostic ultrasound 12 megahertz linear probe Hypoechoic capsulitis of thesinus tarsi region. With significant fluid collection noted within the subtalar joint and within the joint capsule of the subtalar joint. Unable to visualize the interosseous talocalcaneal ligament left foot ASSESSMENT 1. Sinus tarsi syndrome, left 2. Right foot pain 3. Left foot pain 4. Ankle instability, left 5. Arthritis of left ankle 6. Other enthesopathy of left foot and ankle PLAN The patient was educated on the etiology of sinus tarsi syndrome as well as capsulitis of the subtalar joint. This developed secondary to a previous ankle fracture. I discussed the etiology of sinus tarsi syndrome including inflammation nor osseous talocalcaneal ligament. We discussed instability of the left ankle as well patient does have an ASO brace which she does currently wearing home. They are also instructed on rest and icing the on a regular basis as well. They are educated on the diagnostic ultrasound findings as well. The patient was given injection consisting of 1 cc of 2% lidocaine plain and 1 cc of Kenalog 10 via ultrasonic guidance into the subtalar joint capsule Left foot. The injection was delivered into the interosseous talocalcaneal ligament Ultrasound was necessary to ensure exact placement into. the bursa /capsule. I discussed the patient's lateral ankle instability secondary to previous ankle fracture recommended an MRI of the left ankle to evaluate the integrity of the lateral ankle ligament complex hurts no improvement is noted on her next visit. She was dispensed a prescription for Medrol Dosepak to be taken as directed follow up with me in 2 weeks for reassessment. JAM Howard documented in this encounterCarondelet [id number] History of Present illness Narrative* Cadence Jamil LPN - 03/30/2024 11:00 AM EDT Reason for Appointment: Patient ID: Lakeisha Linda is a 34 y.o. female who presents for Gynecologic Exam Patient presents today for Annual Exam. and STD Check. MEDICATIONS Current Outpatient Medications Medication Instructions FLUoxetine (PROzac) 20 MG capsule 1 capsule, Oral, Daily levothyroxine (SYNTHROID, LEVOXYL) 175 mcg, Oral methylphenidate (RITALIN) 20 mg, Oral, Daily ALLERGIES No Known Allergies PROBLEMS Active Ambulatory Problems Diagnosis Date Noted Class 2 obesity 01/07/2023 Disorder of right patellofemoral joint 01/07/2023 Goiter (CMS/HCC) 01/07/2023 Postprocedural hypothyroidism (CMS/HCC) 01/07/2023 Sore throat 01/07/2023 Urinary tract infectious disease 01/07/2023 Resolved Ambulatory Problems Diagnosis Date Noted No Resolved Ambulatory Problems Past Medical History: Diagnosis Date Abnormal Pap smear of cervix 10/2010 Ankle fracture, left BMI 35.0-35.9,adult History of abnormal cervical Pap smear 2009 Intrauterine device surveillance Thyroid cancer (CMS/HCC) Thyroid nodule (CMS/HCC) UTI (urinary tract infection) HISTORY PAST MEDICAL HISTORY SOCIAL HISTORY Past Medical History: Diagnosis Date Abnormal Pap smear of cervix 10/2010 Ankle fracture, left BMI 35.0-35.9,adult History of abnormal cervical Pap smear 2009 [place] [facility] Intrauterine device surveillance Thyroid cancer (CMS/HCC) Thyroid nodule (CMS/HCC) UTI (urinary tract infection) Social History Tobacco Use Smoking status: Never Smokeless tobacco: Never Substance Use Topics Alcohol use: Not Currently Drug use: Defer FAMILY HISTORY Family History Problem Relation Name Age of Onset Cancer Maternal Grandfather Heart disease Paternal Grandfather Stroke Paternal Grandfather SURGICAL HISTORY Past Surgical History: Procedure Laterality Date SECTION, CLASSIC 07/29/2021 HEART CATH 2022 MOLE REMOVAL 2006 mole on back THYROIDECTOMY THYROIDECTOMY, PARTIAL Right 01/17/2019 and Isthmus WISDOM TOOTH EXTRACTION 2014 REVIEW OF SYSTEMS Review of Systems: Review of Systems Constitutional: Negative. HENT: Negative. Eyes: Negative. Respiratory: Negative. Cardiovascular: Negative. Gastrointestinal: Negative. Genitourinary: Negative. Musculoskeletal: Negative. Skin: Negative. Neurological: Negative. All other systems reviewed and are negative. Hematological: Negative. Endocrine: Negative. Allergic/Immunologic: Negative. OBJECTIVE Objective: Physical Exam Constitutional: Appearance: Normal appearance. She is well-developed. Genitourinary: Vulva normal. Breasts: Breasts are soft. Right: Normal. Left: Normal. Cardiovascular: Rate and Rhythm: Normal rate and regular rhythm. Pulmonary: Effort: Pulmonary effort is normal. Breath sounds: Normal breath sounds. Abdominal: General: Bowel sounds are normal. There is no distension. Palpations: Abdomen is soft. Tenderness: There is no abdominal tenderness. There is no guarding or rebound. Musculoskeletal: General: No swelling. Normal range of motion. Right lower leg: No edema. Left lower leg: No edema. Neurological: Mental Status: She is alert and oriented to person, place, and time. Skin: General: Skin is warm and dry. Psychiatric: Mood and Affect: Mood normal. Behavior: Behavior normal. Vitals and nursing note reviewed. Exam conducted with a non ferrous material handler present. Vitals: Estimated body mass index is 38.72 kg/m as calculated from the following: Height as of 12/15/22: 5' 9.5 . Weight as of this encounter: 266 lb. BP: 120/72 No LMP recorded. Patient has had an implant. ASSESSMENT & PLAN ICD-10-CM 1. Well woman exam with routine gynecological exam Z01.419 Pap Smear HPV DNA probe, amplified 2. Screen for STD (sexually transmitted disease) Z11.3 SURESWAB(R) ADVANCED VAGINITIS PLUS, TMA CHLAMYDIA TRACHOMATIS (GENITO/STI) Neisseria gonorrhea DNA probe, direct Annual Exam: Patient presents today for an annual exam. Patient states she is doing well and has no complaints. Pap was obtained without difficulty. Cultures were obtained without difficulty. Orders Placed This Encounter Procedures HPV DNA probe, amplified CHLAMYDIA TRACHOMATIS (GENITO/STI) Neisseria gonorrhea DNA probe, direct Follow Up: Patient is to return in one year for annual unless needed otherwise. Documented by Cadence Jamil LPN on behalf of: Swati Kirkland PA-C documented in this encounterCarondelet [id number] Telephone encounter Note* Telephone Encounter - Meron Foster MA - 03/10/2024 12:40 PM EDT Requester: Patient *new pharmacy* Patients last Endocrinology visit occurred 04/27/23. Follow-up evaluation has been established Upcoming Endocrinology Appointments - Next 365 Days No appointments to display . Requested Prescriptions Pending Prescriptions Disp Refills levothyroxine (SYNTHROID) 200 mcg tablet 90 tablet 3 Sig: Take 1 tablet by mouth once daily. If patient is due for an appointment please route to provider for refill consideration and also to the endo scheduling pool. PSS NOTE: Patient needs scheduled appointment Yes [facility]08-08-2024 Miscellaneous Notes* Telephone Encounter - Meron Foster MA - 03/10/2024 12:40 PM EDT Requester: Patient *new pharmacy* Patients last Endocrinology visit occurred 04/27/23. Follow-up evaluation has been established Upcoming Endocrinology Appointments - Next 365 Days No appointments to display . Requested Prescriptions Pending Prescriptions Disp Refills levothyroxine (SYNTHROID) 200 mcg tablet 90 tablet 3 Sig: Take 1 tablet by mouth once daily. If patient is due for an appointment please route to provider for refill consideration and also to the endo scheduling pool. PSS NOTE: Patient needs scheduled appointment Yes documented in this encounterReg[facility] Telephone encounter Note * Telephone Encounter - Mireya Siegel RN - 12/11/2023 3:12 PM EDT Patient phones requesting refills as follows: ELIANE: 04/27/23 Requested Prescriptions Pending Prescriptions Disp Refills levothyroxine (SYNTHROID) 200 mcg tablet 90 tablet 3 Sig: Take 1 tablet by mouth once daily. Please review and advise. Mireya Siegel RN [facility]05-10-2024 Miscellaneous Notes* Telephone Encounter - Mireya Siegel RN - 12/11/2023 3:12 PM EDT Patient phones requesting refills as follows: ELIANE: 04/27/23 Requested Prescriptions Pending Prescriptions Disp Refills levothyroxine (SYNTHROID) 200 mcg tablet 90 tablet 3 Sig: Take 1 tablet by mouth once daily. Please review and advise. Mireya Siegel RN documented in this encounterRegency [facility]09-25-2023 NoteHNO ID: [id number] Author: Sudheer Mcpherson MD Service: ? Author Type: Physician Type: Progress Notes Filed: 04/27/2023 9:04 AM Note Text: I have communicated my name and active licensure. The patient's identity and physical location were verified at the time of this visit. Either the patient or their legal health and safety representative has been informed of the risks and benefits of -- and alternatives to -- treatment through a remote evaluation and consents to proceed with the evaluation remotely. 32yo WF with MNG s/p left thyroidectomy 03/16/23 (benign path, done due to suspicious for PTC on FNA), h/o right thyroidectomy in 01/19, here for f/u Started LT4 175mcg daily after surgery on 03/17/23. Surgery went well, mostly feels ok however feels sweaty all the time, moreso in the day. Any little activity or warm temp leads her to heavily sweating. Takes LT4 inappropriately/inconsistently: No Energy loss: a little more tired Sleep disturbances: No Wt change: up a little, maybe 5 lbs BM irregularities: No Temp intolerance: Yes Sweats: Yes Skin changes: No Hair changes: No, has been falling out for a while Menses irregular: no period for a year with IUD, then monthly since November, missed last month Tremor: No Palpitations: sometimes a little bit, with steps or more strenuous activity Exposure to contrast, kelp, supplements, MVI, Biotin: No Neck pain/swelling: a little bit of lump at site Dysphagia: No Dyspnea: No Voice change: No Numbness/tingling: No, just in hands which is not new All other Review of Systems reviewed and are negative. No past medical history on file. FAMILY HISTORY Problem Relation Age of Onset Anesthesia Problems No Family History Social History Tobacco Use Smoking status: Never Passive exposure: Never Smokeless tobacco: Never Substance Use Topics Alcohol use: Yes Comment: 3 drinks per week Drug use: Not Currently No outpatient medications have been marked as taking for the 04/27/23 encounter (Appointment) with Sudheer Mcpherson MD. PE: LMP 02/03/2023 (Approximate) Last 3 Encounter Wt Readings: Date: Wt: 03/06/2023 0 kg () 03/03/2023 117.5 kg (259 lb) 02/12/2023 113.4 kg (250 lb) Gen - NAD, comfortable, pleasant Eyes - No exophthalmos, No kathryn-orbital edema Neck - No visible goiter or nodules, small lump at clean/intact surgical site Skin - No visible skin dryness, no thinning or loss of lateral eyebrow hair Neuro - No visible hand tremor, alert/oriented and answering questions appropriately Component Latest Ref Rng AND Units 02/12/2023 03/17/2023 TSH 0.270 - 4.200 mIU/L 1.730 Calcium 8.5 - 10.2 mg/dL 8.9 PTH, Intact 15 - 65 pg/mL 21 OSH Labs: 10/07/22 - TSH 2.27 Diagnoses and all orders for this visit: Postoperative hypothyroidism -final path benign, no additional therapy needed -clinically hyperthyroid since surgery -check TFTs to monitor, will see if LT4 dose needs reduced -once TSH normal and stable, can have TSH monitored once yearly which can be done by PCP, along with future LT4 refills - TSH BLD; Future - T4 FREE/FREE THYROX; Future F/u prn The assessment and benefits/risks of the plan were discussed with the patient who expressed understanding and was agreeable to that which is noted above. All documentation from previous visit was copied and pasted, documentation has been reviewed and edited as necessary for today's visit. The assessment and benefits/risks of the plan were discussed with the patient who expressed understanding and was agreeable to that which is noted above. This consult note is being shared with the referring provider via an electronic medical recordZanesville City [facility]09-[facility] History of Present illness Narrative* Sudheer Mcpherson MD - 04/27/2023 8:50 AM EDT I have communicated my name and active licensure. The patient's identity and physical location wereverified at the time of this visit. Either the patient or their legal health and safety representative has been informed of the risks and benefits of -- and alternatives to -- treatment through a remote evaluation andconsents to proceed with the evaluation remotely. 32yo WF with MNG s/p left thyroidectomy 03/16/23 (benign path, done due to suspicious for PTC on FNA), h/o right thyroidectomy in 01/19, here for f/u Started LT4 175mcg daily after surgery on 03/17/23. Surgery went well, mostly feels ok however feelssweaty all the time, moreso in the day. Any little activity or warm temp leads her to heavily sweating. Takes LT4 inappropriately/inconsistently: No Energy loss: a little more tired Sleep disturbances: No Wt change: up a little, maybe 5 lbs BM irregularities: No Temp intolerance: Yes Sweats: Yes Skin changes: No Hair changes: No, has been falling out for a while Menses irregular: no period for a year with IUD, then monthly since November, missed last month Tremor: No Palpitations: sometimes a little bit, with steps or more strenuous activity Exposure to contrast, kelp, supplements, MVI, Biotin: No Neck pain/swelling: a little bit of lump at site Dysphagia: No Dyspnea: No Voice change: No Numbness/tingling: No, just in hands which is not new All other Review of Systems reviewed and are negative. No past medical history on file. FAMILY HISTORY Problem Relation Age of Onset Anesthesia Problems No Family History Social History Tobacco Use Smoking status: Never Passive exposure: Never Smokeless tobacco: Never Substance Use Topics Alcohol use: Yes Comment: 3 drinks per week Drug use: Not Currently No outpatient medications have been marked as taking for the 04/27/23 encounter (Appointment) with Sudheer Mcpherson MD. PE: LMP 02/03/2023 (Approximate) Last 3 Encounter Wt Readings: Date: Wt: 03/06/2023 0 kg () 03/03/2023 117.5 kg (259 lb) 02/12/2023 113.4 kg (250 lb) Gen - NAD, comfortable, pleasant Eyes - No exophthalmos, No kathryn-orbital edema Neck - No visible goiter or nodules, small lump at clean/intact surgical site Skin - No visible skin dryness, no thinning or loss of lateral eyebrow hair Neuro - No visible hand tremor, alert/oriented and answering questions appropriately Component Latest Ref Rng & Units 02/12/2023 03/17/2023 TSH 0.270 - 4.200 mIU/L 1.730 Calcium 8.5 - 10.2 mg/dL 8.9 PTH, Intact 15 - 65 pg/mL 21 OSH Labs: 10/07/22 - TSH 2.27 Diagnoses and all orders for this visit: Postoperative hypothyroidism -final path benign, no additional therapy needed -clinically hyperthyroid since surgery -check TFTs to monitor, will see if LT4 dose needs reduced -once TSH normal and stable, can have TSH monitored once yearly which can be done by PCP, along with future LT4 refills - TSH BLD; Future - T4 FREE/FREE THYROX; Future F/u prn The assessment and benefits/risks of the plan were discussed with the patient who expressed understanding and was agreeable to that which is noted above. All documentation from previous visit was copied and pasted, documentation has been reviewed and edited as necessary for today's visit. The assessment and benefits/risks of the plan were discussed with the patient who expressed understanding and was agreeable to that which is noted above. This consult note is being shared with the referring provider via an electronic medical record documented in this encounterRegency [facility]08-31-2023 NoteHNO ID: [id number] Author: Alyssa Melendez MD Service: ? Author Type: Physician Type: Progress Notes Filed: 04/02/2023 11:49 AM Note Text: [facility] Endocr[facility]ology [facility] Metabolism [place] Department of Endocrine Surgery Alyssa Melendez M.D. [address] [place] [address] Ms. Lakeisha Linda's postoperative visit was conducted via telephone call. She underwent a completion left thyroidectomy on 03/16/23. The final pathology was benign. She has been maintained on 175 mcg of thyroid hormone daily. As per the patient, her transverse cervical incision has healed quite well without evidence of infection or seroma. Her voice is normal. Ms. Linda has done well since her surgery. She has a followup appointment with Dr. Mcpherson, and I plan to see her back in the office in one year. I have given her a requisition to have her TSH checked in approximately six weeks to make sure her dose of thyroid hormone is appropriate. I appreciate being involved in the care of your patient, and please feel free to contact me should you have any questions or concerns. ALYSSA MELENDEZ M.D. CC: Sudheer Mcpherson M.D. Danielito Gregory D.O.[facility]08-25-2023 Miscellaneous Notes* Telephone Encounter - Paulie Velez, RN - 03/27/2023 2:29 PM EDT Called patient to follow up after Completion of left thyroid lobectomy with Dr. Melendez on 03/16/23. Incision is dry, taught pt how to remove steristrip. She still has the sweating and feeling warm. Reminded of post-op follow-up. Lab requisition for post-op TSH mailed to pt. Pt was thankful for the call. Paulie Velez RN documented in this encounterRegency Hospital [facility]08-15-2023 NoteHNO ID: [id number] Author: Alex Jiang MD Service: Endocrine Surgery Author Type: Physician Type: Progress Notes Filed: 03/17/2023 7:05 AM Note Text: . ENDOCRINE SURGERY PROGRESS NOTE NAME: Lakeisha Linda 03/17/2023 7:04 AM Assessment and Plan: Lakeisha Linda is a 33 year old female w/ PMHx of PTC with previous right thyroid lobe removal (2018), now s/p THYROIDECTOMY COMPLETE FOLLOWING PARTIAL REMOVAL on 03/16/2023. Recovering appropriately. No dysphagia. No dysphonia. No paresthesias. No signs of hematoma. - Regular diet - No SQH - SCDs - multimodal pain regimen, minimize narcotics - Discharge in AM - Follow-up PTH and Ca in AM - 175 mcg synthroid Alex Jiang MD, PhD Clinical Associate Endocrine Surgery [id number] Patient Active Hospital Problem List: Obesity, Class II, BMI 35-39.9 (03/16/2023) Subjective: Interval Events: No acute events. Pain: controlled. No other complaints. Physical Exam: BP 128/64 Pulse 100 Temp 36.7 ?C (98.1 ?F) (Oral) Resp 18 Ht 175.3 cm (5' 9 ) Wt 113.4 kg (250 lb) LMP 02/03/2023 (Approximate) SpO2 95% BMI 36.92 kg/m? GENERAL/NEURO: Awake, Alert, NAD HEENT: Normocephalic, Atraumatic; incision c/d/I without signs of hematoma CHEST: Unlabored breathing ABDOMEN: Soft, Non-tender EXTREMITIES: warm, well perfused Labs: CBC, Coags, BMP, Mg, Phos Recent Labs 03/17/23 0353 CA 8.9 Liver Function, Amylase, AND Lipase Intake and Output: Date 03/16/23 07 - 03/17/23 0659 03/17/23 07 - 03/18/23 0659 Shift 7569-2620 2374-1343 8962-3433 24 Hour Total 6853-7212 4311-8072 5817-9544 24 Hour Total INTAKE PO 600 600 PO 600 600 IV 1000 1000 Volume (mL) (lactated ringers iv infusion) 1000 1000 Shift Total 0185 [id number] OUTPUT Urine Urine Not Saved. 1 x 1 x Blood 5 5 Estimated Blood loss 5 5 Shift Total 5 5 Weight (kg) 113.4 113.4 113.4 113.4 113.4 113.4 113.4 Current Medications: Current Facility-Administered Medications Medication Dose Route Frequency FLUoxetine 20 mg cap(s) (PROzac) 20 mg ORAL DAILY methylphenidate 20 mg tab(s) (RITALIN) 20 mg ORAL DAILY dextrose 5% in NaCl 0.45% with 20 mEq/L KCl iv infusion 75 mL/hr INTRAVENOUS CONTINUOUS ibuprofen 600 mg tab(s) (MOTRIN) 600 mg ORAL q 6 H PRN acetaminophen 500 mg tab(s) (TYLENOL) 500 mg ORAL q 4 H PRN fxfipqn-aphgvxdld-ifupxky D3 500 mg-5 mcg (200 unit) 1 tablet 1 tablet ORAL TID calcium carbonate 500 mg chewable tab(s) (TUMS) 500 mg ORAL q 1 H PRN benzocaine-menthol 1 Lozenge (CHLORASEPTIC) 1 Lozenge MUCOUS MEMBRANE (TOPICAL MOUTH AND THROAT) q 2 H PRN phenol 1 [place] (CHLORASEPTIC) 1 [place] MUCOUS MEMBRANE (TOPICAL MOUTH AND THROAT) q 2 H PRN ondansetron (PF) 4 mg injection (ZOFRAN) 4 mg INTRAVENOUS q 6 H PRN NaCl 0.9% iv flush bag 20 mL INTRAVENOUS PRN levothyroxine (SYNTHROID) tab(s) 175 mcg 175 mcg ORAL DAILY (6 AM) Prior to Admission Medications: calcium carbonate (TUMS) 500 mg chewTake 1 tablet by mouth every hour as needed (mouth or hand numbness or tingling).Disp: Rfl: beqiuwz-ltokutfor-uzdtmwk D3 500 mg-5 mcg (200 unit) per tabletTake 1 tablet by mouth three times daily.Disp: Rfl: levothyroxine (SYNTHROID) 175 mcg tabletTake 1 tablet by mouth DAILY (6 AM).Disp: 90 tabletRfl: 0 FLUoxetine (PROZAC) 20 mg capsuleTake 1 capsule by mouth every afternoon.Disp: Rfl: methylphenidate (RITALIN) 20 mg tabletDisp: Rfl:Marylindsey [id number] NoteHNO ID: [id number] Author: Alex Jiang MD Service: Endocrine Surgery Author Type: Physician Type: Progress Notes Filed: 03/16/2023 2:08 PM Note Text: . ENDOCRINE SURGERY POST-OPERATIVE NOTE NAME: Lakeisha Linda 03/16/2023 12:13 PM Assessment and Plan: Lakeisha Linda is a 33 year old female w/ PMHx of PTC with previous removal of the right thyroid lobe and isthmus, now s/p completion thyroidectomy (left lobe) on 03/16/2023. Recovering appropriately. No dysphagia. No dysphonia. No paresthesias. No signs of hematoma. - Regular diet - No SQH - SCDs - multimodal pain regimen, minimize narcotics - Discharge in AM - Follow-up PTH and Ca in AM - 175 mcg synthroid Alex Jiang MD, PhD Clinical Associate Endocrine Surgery [id number] Patient Active Hospital Problem List: No active hospital problems. Subjective: Interval Events: No acute events. Pain: controlled. No other complaints. Physical Exam: BP 130/71 Pulse 83 Temp 36.7 ?C (98 ?F) (Temporal) Resp 14 LMP 02/03/2023 (Approximate) SpO2 100% GENERAL/NEURO: Awake, Alert, NAD HEENT: Normocephalic, Atraumatic; incision c/d/I without signs of hematoma CHEST: Unlabored breathing ABDOMEN: Soft, Non-tender EXTREMITIES: warm, well perfused Labs: CBC, Coags, BMP, Mg, Phos Liver Function, Amylase, AND Lipase Intake and Output: Current Medications: Current Facility-Administered Medications Medication Dose Route Frequency lidocaine (PF) 10 mg/mL (1 %) 1-2 mg injection (XYLOCAINE) 0.1-0.2 mL INTRADERMAL PRN lactated ringers iv infusion 75 mL/hr INTRAVENOUS CONTINUOUS Prior to Admission Medications: FLUoxetine (PROZAC) 20 mg capsuleTake 1 capsule by mouth every afternoon.Disp: Rfl: methylphenidate (RITALIN) 20 mg tabletDisp: Rfl:[facility]08-14-2023 NoteHNO ID: [id number] Author: Shayla Cary APRN.PODIATRIC ASSISTANT Service: ? Author Type: Nurse Alarm Mechanism Adjuster Type: Anesthesia Procedure Notes Filed: 03/16/2023 12:30 PM Note Text: ANESTHESIOLOGY PROCEDURE NOTE Airway General Information Procedure Start Time/Medication Administration: 03/16/2023 12:23 PM Patient location during procedure: OR Staffing PODIATRIC ASSISTANT: Shayla Cary APRN.PODIATRIC ASSISTANT Indications and Patient Condition Indications for airway management: anesthesia Preoxygenated: yes anesthesia circuit Method: sleep Difficult Mask: No Final Airway Details Final airway type: endotracheal airway Final Endotracheal Airway: ETT Cuffed: yes Successful intubation technique: video laryngoscopy Devices used: Harrison Endotracheal tube insertion site: oral Blade size: #4 ETT size (mm): 7.0 Measured from: lips Measurement (cm): 23 Placement verified by: capnometry Cormack-Lehane Classification: grade I - full view of glottis Number of attempts at approach: 1 Airway not difficult SIGNATURE: Shayla oH APRN.PODIATRIC ASSISTANT PATIENT NAME: Lakeisha Linda DATE: March 16, 2023 TIME: 12:30 PM CSN: [id number] History and physical note* Randi Yates PA - 03/06/2023 9:50 AM EDT HISTORY AND PHYSICAL EXAMINATION SERVICE DATE: 03/06/2023 SERVICE TIME: 10:28 AM PRIMARY CARE PHYSICIAN: Danielito Gregory DO This is a virtual visit using [employer] video visit. It required patient-provider interaction for the medical decision making as documented below. I have communicated my name and active licensure. The patient's identity and physical location wereverified at the time of this visit. Either the patient or their legal health and safety representative has been informed of the risks and benefits of and alternatives to treatment through a remote evaluation and consents to proceed with the evaluation remotely. REASON FOR VISIT: Lakeisha Linda is a 32 year old female who is scheduled for Procedure(s): THYROIDECTOMY COMPLETE FOLLOWING PARTIAL REMOVAL (Left) at the request of Alyssa Rodriguez MD for consultation. My final recommendation will be communicated back to the requesting physician by way of shared medical record or letter. Subjective The patient has the following: ACTIVE PROBLEM LIST Pericarditis Adhd Anxiety Obesity COVID-19 Immunization Status Overdue - COVID-19 VACCINE (2 - Moderna series) Overdue since 10/13/2021 08/18/2021 Imm Admin: COVID-19 original vaccine, full dose, monovalent (MODERNA) Patient reports being partially vaccinated against COVID-19. Patient reports a prior COVID-19 infection, with an infection date of April 2020. CHIEF COMPLAINT: Preop exam HPI: Patient is a 32 year old female presenting with a thyroid mass. It is biopsy proven papillary thyroid carcinoma. She is followed by Endo. Denies difficulty swallowing. She has had her R thyroid surgically removed in 2019. Patient denies other specific radiating, alleviating, or aggravating factors. REVIEW OF SYSTEMS: General: Obesity Negative for: unintentional weight change, malaise and fever. Neurological: No history of TIA's, stroke, BRUSHER WARP tumor, impaired sensorium, hemiplegia, paraplegia orquadraplegia. No neurological symptoms or problems. Respiratory: Positive for: prior COVID-19 infection. Date of COVID-19 infection: April 2020. Negative for: asthma, bronchitis, COPD, current cough, dyspnea, pneumonia within 6 weeks, tobacco use, URI < 2 weeks and obstructive sleep apnea. Cardiovascular: Pericarditis (10/2022, mono, strep) Negative for: abdominal aortic aneurysm, AICD/PPM, arrhythmia, atrial fibrillation, chest pain, CHF, DVT/PE, hyperlipidemia, hypertension, murmur/valvular heart disease, PTCA, open heart surgery and valve surgery. GI: No history of GI symptoms or problems. No history of esophageal varices, recent ascites, or ETOH greater than 2 drinks per day. : No history of dysuria, frequency or incontinence, stones or chronic kidney disease. No difficulty urinating, nocturia > 1 time per night or hematuria. 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 Endocrine: No history of diabetes. Has not taken steroids within the past 30 days. No history of endocrinological symptoms or problems. Hematology: No history of bleeding or clotting disorder. Patient is not taking anti-coagulation or platelet medications. No history of hematological symptoms or problems. Oncology: See HPI. papillary thyroid carcinoma Negative for: chemo within 30 days and radiotherapy within 90 days. Psych: Positive for: ADHD and anxiety. Negative for: ADD, bipolar disorder and depression. Musculoskeletal: Negative for joint pain or swelling, back pain or muscle pain. Skin: Negative for lesions, rash and itching. History reviewed. No pertinent past medical history. PAST SURGICAL HISTORY Procedure Laterality Date PAST SURGICAL HISTORY OF cardiac catherization, dx'ed with pericarditis (mono, strep) PAST SURGICAL HISTORY OF 2019, R side thyroid PAST SURGICAL HISTORY OF 2020 FAMILY HISTORY Problem Relation Age of Onset Anesthesia Problems No Family History Social History Tobacco Use Smoking status: Never Passive exposure: Never Smokeless tobacco: Never Substance Use Topics Alcohol use: Yes Comment: 3 drinks per week Drug use: Not Currently Prior to Admission medications as of 03/06/23 0953 Medication Sig Last Dose Taking FLUoxetine (PROZAC) 20 mg capsule Take 1 capsule by mouth every afternoon. Taking Yes methylphenidate (RITALIN) 20 mg tablet Taking Yes No medication comments found. ALLERGIES No Known Allergies Objective PHYSICAL EXAM: General: alert and oriented and obese. Pertinent negatives noted - not distressed. Skin: No rashes noted. HEENT: Normocephalic. EOM intact, no injection, visual acuity is grossly normal. External nose normal without rhinorrhea. Moist mucous membranes. Full neck ROM, no cervical LNs noted.. Cardiovascular: Patient palpated radial pulses, pulse regular when counted aloud by patient. Capillary refill <3 seconds in bilateral upper extremities.. Respiratory: Breathing non-labored, equal chest rise with normal respiratory effort.. Abdomen: Deferred . Extremities: No gross deformities of extremities . Neurological: No obvious deficits . PAIN ASSESSMENT: VITALS: Ht [5'9 [ (0.00m) Wt 0 lb (0.0kg) Diagnostic tests reviewed for today's visit: Lab Value Units Date High Low HB 13.0 g/dL 02/12/2023 15.5 11.5 HCT 39.4 % 02/12/2023 46.0 36.0 WBC 6.78 k/uL 02/12/2023 11.00 3.70 PLT 220 k/uL 02/12/2023 400 150 NA 139 mmol/L 02/12/2023 144 136 K 3.4 mmol/L 02/12/2023 5.1 3.7 GLUC 106 mg/dL 02/12/2023 99 74 BUN 8 mg/dL 02/12/2023 21 7 CREAT 0.55 mg/dL 02/12/2023 0.96 0.58 PTSEC No results within date range. INR No results within date range. APTT No results within date range. ALT No results within date range. AST No results within date range. TBILI No results within date range. TSH 1.730 mIU/L 02/12/2023 4.200 0.270 Lab Value Units Date High Low HCGQT No results within date range. UHCG No results within date range. HCG, BODY* No results within date range. Lab Value Units Date High Low ABORHD No results within date range. ABSCREEN No results within date range. No results found for: HBA1C No results found for this or any previous visit (from the past 8760 hour(s)). No results found for this or any previous visit (from the past 85182 hour(s)). Assessment Patient has the following medical conditions which may affect kathryn-operative course: Pericarditis Assessment: 10/2022, due mono and strep phargitis, Cardio (Dr. Fowler, [facility] in [facility]) Thepatient's symptoms have completely resolved and she is no longer on beta-earnest or calcium channelblocker. Patient is at low risk for noncardiac surgery and may proceed with thyroid surgery at any time. No additional testing needed at this time. Return to office with Dr. Lind in 6 months. 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 Angiographically normal coronary arteries except for minimal disease in a very small obtuse marginal #1 vessel. 2. Hyperdynamic left ventricular function with an ejection fraction of 70-75%. 3. Normal left ventricular end-diastolic pressure of 9. [1] In addition she underwent a 2D echo with Doppler on 10/07/2022 with the following results: (10/07/2022 11:53 EST Echo Transthoracic Complete) Interpretation Summary Normal LV and RV. No significant valve disease. Normal estimated PA pressure. Normal diastolic filling pattern. Small pericardial effusion with no tamponade. [2] Denies any cardiac or inflammatory/URI sx's. ADHD Assessment: stable with Ritalin Anxiety Assessment: stable with Prozac Obesity Assessment: BMI 38.2 [place] Activity Status Index: METS: Climb a flight of stairs or walk up a hill (5.50 METs) DASI Score: 5.5 Patient denies any chest pain or undue shortness of breath with the above physical activity. Clinical Frailty Scale: 3. Well, with treated comorbid disease STOP-Bang Score: Snores loudly Has been observed to stop breathing or choking/gasping during sleep BMI greater than 35 kg/m^2 Denies feeling tired, fatigued, or sleepy during the daytime Denies having high blood pressure Patient 50 years old or younger Does not have a large neck Non-male patient STOP-Bang Score: 3 [id number] Score: Age: <65 Sex: female CHF history: No Hypertension history: No Stroke/TIA/thromboembolism history: No Vascular disease history: No Diabetes history: No [id number] Score: 1 ASA Class: 2 ANESTHESIA FINDINGS: Intubation History: No history of difficult intubation. No abnormal airway history Significant Anesthesia Considerations: none Airway History: No history of difficult airway No abnormal airway history I - PHYSICAL EVALUATION AIRWAY Patient intubated: No. Tracheostomy tube not present Mallampati: II. TM distance: >3 FB. Neck ROM: full ROM without neurological symptoms. Mouth opening: adequate. Short neck: no. Thick neck: no Alaniz present: no Lip Bite Test: I Microretrognathia/Micronagthia/Recessed Chin: No DENTAL Dental findings: missing tooth/teeth. II - ANESTHESIA PLAN ASA Score: 2 Anesthetic Plan: general Beta Earnest Monitoring Plan Post Procedure Analgesic Plan Prepared for Surgery: optimally prepared for surgery. reviewed labs from 01/2023, Cardio clearance given by Cardio (Dr. Fowler)linda preoperative instructions to patient on . CONSULTS: Patient does not require consults for optimization at this time Planned Anesthetic: general The Following Tests/Procedures Have Been Initiated: No orders of the defined types were placed in this encounter. Instructions Given to Patient: Instructions located in the after visit summary. Patient given verbal and written preop instructions and voices comprehension and compliance. SIGNATURE: ERAN Perry PATIENT NAME: Lakeisha Linda DATE: March 06, 2023 TIME: 8:48 AM PAGER/CONTACT #: documented in [facility] Instructions* Patient Instructions* Randi Yates PA - 03/06/2023 8:40 AM EDT PATIENT PREOPERATIVE INSTRUCTIONS Alyssa Melendez MD provider found has scheduled you for your procedure at this surgery center: [facility]: [phone] -- [address] [place] [address]. Please read below carefully for your personalized instructions. Arrival Time for Surgery: - The Surgery Center or hospital where you are having surgery will call the afternoon before surgery (or Thursday for Thursday surgery) with a scheduled arrival time. - If you have not heard by 4 pm, please contact the surgery center above. Please be aware that emergency situations arise, which may delay or change your surgical time. If this happens, we will notify you as soon as possible and regret any inconvenience. Dietary Restrictions: - No solid food after midnight. - You may have 12 ounces of clear liquids (water, clear juices such as apple juice or gatorade, carbonated beverages, clear tea, black coffee, jello) until 2 hours before scheduled arrival at facility. - Do not drink any alcohol after midnight the night before your surgery. Medications: Unless instructed differently below, stay on all of your medications until your surgery. Approved medications to take the morning of surgery with a sip of water: None If you start any new medications after today's visit, please contact the surgeon's office. Blood Thinning Medications: - Stop NSAIDS (Ibuprofen, Advil, Aleve, Motrin, Celebrex, Mobic, etc.) 7 days before surgery, as directed by your surgeon. - Stop Aspirin 7 days before surgery, as directed by your surgeon. - Stop Vitamin E, ALL multi-vitamins, herbals and dietary supplements 14 days before surgery. - You may take Tylenol (Acetaminophen) or any of your pain medications that do not contain aspirin or NSAIDS as needed. Important Reminders: - If you use CPAP/BIPAP, bring the machine with you to the surgery center. - If you are prescribed inhalers for breathing, continue using them. - Candy, mints, and tobacco products are NOT permitted the morning of surgery. - Hearing aids, dentures and glasses may be worn the morning of surgery. - NO jewelry, body piercings, makeup, hairpins or contacts are to be worn the day of surgery. If you develop symptoms such as a fever, cold, or flu, or have other changes to your health within TWO DAYS of scheduled surgery or the morning of surgery, please contact the surgery center above. Personal Belongings: -Please have photo ID and insurance cards. -If you do not have a copy of advance directives on file with us, please bring a copy with you on the day of surgery. - Leave ALL valuables and money at home or with family members. For Outpatient Procedures: - YOU MUST HAVE A RESPONSIBLE TABULAR TYPIST TAKE YOU HOME. A FUNDRAISING MANAGER OR INSTRUCTIONAL SERVICES LIBRARIAN CANNOT BE MADE A RESPONSIBLE TABULAR TYPIST. - We recommend that a responsible person stays with you overnight to take care of you. - You cannot stay in a hotel alone after outpatient surgery. You will not be permitted to have yoursurgery, if you do not have someone to take care of you. If you already have an Advance Directive, please fax a copy to [phone] or email to for it to be added to your chart. If you do not have an Advance Directive, you can find the appropriate form and more information at [email or web address]. We recommend that youcomplete the Advance Directive form found on the website and bring it with you the day of your surgery. It can be witnessed and scanned into your chart that day. ERAN Perry documented in this encounterReg[facility]08-01-2023 NoteHNO ID: [id number] Author: Alyssa Melendez MD Service: ? Author Type: Physician Type: Progress Notes Filed: 03/03/2023 10:50 AM Note Text: Direct laryngoscopy was performed with flexible laryngoscope after application of topical anesthesia to the trinidad/nasopharynx. Both true vocal cords were seen to move in full ab/adduction. Informed consent obtained. Alyssa Melendez, [facility]08-01-2023 Nurse Note* Paulie Velez, RN - 03/03/2023 11:12 AM EDT Used laryngoscope model #[id number]. Paulie Velez RN documented in this encounterRegency [facility]08-01-2023 History of Present illness Narrative* Alyssa Melendez MD - 03/03/2023 10:20 AM EDT Direct laryngoscopy was performed with flexible laryngoscope after application of topical anesthesia to the trinidad/nasopharynx. Both true vocal cords were seen to move in full ab/adduction. Informed consent obtained. Alyssa Melendez MD documented in this encounterReg[facility]08-01-2023 Instructions* Patient Instructions* Skylar Anaya Ma - 03/03/2023 10:13 AM EDT [facility] you for [facility] Department of Endocrinology, Diabetes and Metabolism. Did you know that you need to call 48 hours in advance of your scheduled visit, if you are unable to make your appointment? The End[facility]inology [facility] Metabolism [place] thanks you for your commitment, because patients not showing to their appointment results in a lost opportunity for patients to receive [facility] care at the [facility]. To Cancel an appointment, please choose one of the following: - Call the Appointment Call Center at [phone] - From [employer], Go to Appointments - Cancel Appts If cancelling, consider your need to reschedule to prevent further delays in your care. To Schedule an appointment, please choose one of the following: - Call the Appointment Call Center at [phone] - From [employer], Go to Appointments - Request an Appt documented in this encounterRegency [facility]07-13-2023 NoteHNO ID: [id number] Author: Alyssa Melendez MD Service: ? Author Type: Physician Type: Progress Notes Filed: 02/12/2023 1:03 PM Note Text: [facility] [place] Department of Endocrine Surgery Alyssa Melendez M.D. [address] [place] [address] Ms. Lakeisha Linda was seen in the office today in consultation for papillary thyroid carcinoma. The patient was referred by Dr. Sudheer Mcpherson, and my findings and recommendations will be communicated by way of the shared medical record. Thank you for referring your patient, Ms. Linda, for evaluation of papillary thyroid carcinoma. As you know, she is a 32-year-old female who underwent a right thyroid lobectomy and isthmusectomy on 01/17/[address] Kemal Davis at [facility] for an enlarging mass in the right thyroid gland. As per the operative report, the RU parathyroid gland was identified and preserved. 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 The patient was not aware of these findings. On her followup neck ultrasound, she was found to have nodules in the remaining left thyroid gland. One was biopsied, and it revealed atypia of undetermined significance. Therefore, she was referred here for further evaluation. The patient's past medical history is significant for ADD, depression, anxiety, and pericarditis. Her medications include fluoxetine and Ritalin. The patient's past surgical history is significant for right thyroid lobectomy/isthmusectomy and . The patient denies any family history of thyroid cancer or any other thyroid diseases. The patient denies any history of ionizing radiation to the head or neck. The patient denies any compressive symptoms related to the thyroid gland. Her most recent thyroid function test performed on 03/05/20 revealed a TSH of 3.46 (normal range, 0.45 to 5.33). On physical examination, Ms. Linda is a healthy appearing woman in no acute distress. She appears clinically euthyroid. Inspection of the head and neck reveals a well-healed cervical incision. Palpation of the neck reveals no thyromegaly or cervical lymphadenopathy. Ultrasound examination was performed in the office. This revealed surgical absence of the right thyroid gland. The left thyroid gland was normal in size and contained a complex nodule measuring 1.42 x 1.02 x 1/26 cm. There was also a subcm cyst. No abnormal central or jugular lymphadenopathy was appreciated on ultrasound. In summary, Ms. Linda is a 32-year-old female with papillary thyroid carcinoma. The remaining left thyroid gland contains a nodule with atypia. Given these findings, I feel that she would be best served by undergoing a completion left thyroid lobectomy. The indications, risks, benefits, and alternatives of a completion left thyroid lobectomy were explained to the patient in detail. I will keep you informed as to her perioperative course. I appreciate being involved in the care of your patient, and please feel free to contact me should you have additional questions or concerns. ALYSSA MELENDEZ M.D. CC: Sudheer Mcpherson M.D. Danielito Gregory D.O.[facility]07-13-2023 History of Present illness Narrative* Alyssa Melendez MD - 02/12/2023 1:40 PM EDT [facility] [place] Department of Endocrine Surgery Alyssa Melendez M.D. [address] [place] [address] Ms. Lakeisha Linda was seen in the office today in consultation for papillary thyroid carcinoma. The patient was referred by Dr. Sudheer Mcpherson, and my findings and recommendations will be communicated by way of the shared medical record. Thank you for referring your patient, Ms. Linda, for evaluation of papillary thyroid carcinoma.As you know, she is a 32-year-old female who underwent a right thyroid lobectomy and isthmusectomy on 01/17/[address] Kemal Davis at [facility] for an enlarging mass in the right thyroid gland. As per the operative report, the RU parathyroid gland was identified and preserved. 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 The patient was not aware of these findings. On her followup neck ultrasound, she was found to have nodules in the remaining left thyroid gland. One was biopsied, and it revealed atypia of undetermined significance. Therefore, she was referred here for further evaluation. The patient's past medical history is significant for ADD, depression, anxiety, and pericarditis. Her medications include fluoxetine and Ritalin. The patient's past surgical history is significant for right thyroid lobectomy/isthmusectomy and . The patient denies any family history of thyroid cancer or any other thyroid diseases. The patient denies any history of ionizing radiation to the head or neck. The patient denies any compressive symptoms related to the thyroid gland. Her most recent thyroid function test performed on 03/05/20 revealed a TSH of 3.46 (normal range, 0.45 to 5.33). On physical examination, Ms. Linda is a healthy appearing woman in no acute distress. She appears clinically euthyroid. Inspection of the head and neck reveals a well-healed cervical incision. Palpation of the neck reveals no thyromegaly or cervical lymphadenopathy. Ultrasound examination was performed in the office. This revealed surgical absence of the right thyroid gland. The left thyroid gland was normal in size and contained a complex nodule measuring 1.42 x 1.02 x 1/26 cm. There was also a subcm cyst. No abnormal central or jugular lymphadenopathy was appreciated on ultrasound. In summary, Ms. Linda is a 32-year-old female with papillary thyroid carcinoma. The remaining left thyroid gland contains a nodule with atypia. Given these findings, I feel that she would be bestserved by undergoing a completion left thyroid lobectomy. The indications, risks, benefits, and alternatives of a completion left thyroid lobectomy were explained to the patient in detail. I will keep you informed as to her perioperative course. I appreciate being involved in the care of your patient, and please feel free to contact me should you have additional questions or concerns. ALYSSA MELENDEZ M.D. CC: Paula King D.O. documented in this encounterRegency Hospital [facility]06-28-2023 NoteFocal cytologic atypia is present, the significance of which is uncertain; this may represent cyst lining atypia (reactive changes). This case was reviewed in consultation with Dr. German who agrees with the diagnosis.[facility] on above:Order Comment: Specimen Type: SLIDEOrdering Facility: [facility] Outside Review Address: , ,Performed By: #### [id number] ####[facility] LABCLIA [id number] [place] [id number] [place] [id number] Miscellaneous Notes* Telephone Encounter - Vivian Dre - 01/22/2023 2:27 PM EDT INDEXED OP NOTE, PATH REPORTS, THYROID US REPORT,AND LABS documented in this encounterRegency Hospital [facility]06-20-2023 NoteHNO ID: [id number] Author: [place] Avelar Service: ? Author Type: ? Type: Progress Notes Filed: 01/20/2023 5:36 PM Note Text: Patient contacted and scheduled 04/27 @ [address] [facility]06-[facility]2023 Miscellaneous Notes * Telephone Encounter - Vivian Erickson - 01/20/2023 10:00 AM EDT 01/20/2023 INTAKE PENDING-NEED US AND TSH-LFT MSG ON VMX FOR A RETURN CALL. 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 PATIENT PHYSICIAN INFORMATION Referring Doctor: Address: Phone: Lecturer In Marketing: Address: Phone: PCP: [place] [address] PAST TREATMENT Office notes: SEE EPIC Medications: NONE THAT APPLY Pre-Visit Testing STUDY/TEST DATE ORDERED/REQUESTED DATE RECEIVED/COMPLETED ENTIRE PANEL TSH FREE T4 FREE T3 Imaging Reports: NONE AVAILABLE CD of Images: Requested from referring physician (Date received: ) FNA: yes: 12/23-01/19 FNA Slides: Slides requested from outside facility (Date received: ) Has the patient ever had thyroid or parathyroid surgery before: Yes: Thyroid (Date: 01/19) Operative Reports: Requested from referring physician (Date received: ) Pathology Reports: Requested from referring physician (Date received: ) documented in this encounterRegency Hospital [facility]06-19-2023 NoteHNO ID: [id number] Author: Sudheer Mcpherson MD Service: ? Author Type: Physician Type: Progress Notes Filed: 01/19/2023 3:05 PM Note Text: I have communicated my name and active licensure. The patient's identity and physical location were verified at the time of this visit. Either the patient or their legal health and safety representative has been informed of the risks and benefits of -- and alternatives to -- treatment through a remote evaluation and consents to proceed with the evaluation remotely. Ms. Linda is a 32 year old female referred by Dr Gregory for thyroid nodule, has h/o right thyroidectomy in 01/19 After second a couple years ago she had right thyroidectomy due to abnormal/inconclusive biopsy. Was admitted a few months ago for mono/strep c/b pericarditis, which led to imaging that could nodules on left thyroid. Had FNA on 12/08/22 that showed suspicion for PTC. Takes LT4 inappropriately/inconsistently: never on LT4 Energy loss: No Sleep disturbances: No Wt change: No BM irregularities: No Temp intolerance: sweaty all the time, since admission in 10/23 Sweats: Yes Skin changes: No Hair changes: falls out but nothing new Menses irregular: Yes, had IUD placed last summer and then no period for a year, then had a period last 2 months Tremor: No, but possibly has carpal tunnel Palpitations: No Exposure to contrast, kelp, supplements, MVI, Biotin: No Neck pain/swelling: No Dysphagia: No Dyspnea: No Voice change: No Radiation exposure to head/neck: No FamHx of thyroid disease: a couple maternal aunts had thyroid removed, no cancer that she knows of All other Review of Systems reviewed and are negative. No past medical history on file. No family history on file. No outpatient medications have been marked as taking for the 01/19/23 encounter (Appointment) with Sudheer Mcpherson MD. Lives with and 3 children (1.5yo, 4yo, 6yo), no tobacco or EtOH PE: There were no vitals taken for this visit. No data found for this vital: Wt Gen - NAD, comfortable, pleasant Eyes - No exophthalmos, No ktahryn-orbital edema Neck - No visible goiter or nodules Skin - No visible skin dryness, no thinning or loss of lateral eyebrow hair Neuro - No visible hand tremor, alert/oriented and answering questions appropriately OSH Labs: 10/07/22 - TSH 2.27 FNA report 12/08/22: Thyroid, left nodule, fine-needle aspiration, ThinPrep and smear preparations: - Satisfactory for evaluation specimen. - Suspicious for papillary thyroid carcinoma [place] category V (TBS V). See comment. US Thyroid 10/23/22: IMPRESSION: TWO LEFT THYROID NODULES EXAM: Ultrasound Thyroid Please note that characterization of thyroid nodules is based on the ACR 2017 TI-RADS classification which provides guidelines regarding management of thyroid nodules on the basis of their ultrasound appearance. These are offered in an attempt to assist the referring physician in their decision process and help address the current over diagnosis of thyroid cancer. It should be noted that the [place] Preventative Services Task Force concludes that screening for thyroid cancer results in harms that outweighed the benefits and recommends against screening for thyroid cancer in asymptomatic adults. RECOMMENDATIONS: TR1: Benign. No FNA required TR2: Not suspicious. No FNA required TR3: Greater than or equal to 1.5 cm, follow-up 1, 3, and 5 years. Greater than or equal to 2.5 cm: FNA TR 4: Greater than or equal to 1 cm, follow-up: 1, 2, 3, and 5 years. Greater than or equal to 1.5 cm: FNA. TR 5: Greater than or equal to 0.5 cm, annual follow-up for up to 5 years. Greater than or equal to 1 cm: FNA. CLINICAL HISTORY: hx of thyroid nodule COMPARISONS: None available. FINDINGS: Biplanar images were obtained. The right lobe measures status post right thyroidectomy. cm. The left lobe measures 5.2 x 1.8 x 2.1 cm. cm. The isthmus measures 0.3 cm Right thyroid lobe: Status post right thyroidectomy. No residual soft tissue mass in the right thyroid bed. Left thyroid lobe: Nodule #1: 1.5 x 0.9 cm mixed solid cystic nodule. Solid composition is relatively isoechoic. No associated echogenic foci. Margins smooth. Nodule is not tolerated than wide. TR 3 Report nodule Nodule #2: 6 mm hypoechoic nodule mid posterior pole of left thyroid lobe. No echogenic foci. Margins spine. Consistent with TR 4 nodule. Diagnoses and all orders for this visit: Papillary thyroid carcinoma (HCC) -FNA cytology suspicious for PTC which indicates 70% change of malignancy, would recommend completion thyroidectomy as per JEFFRY guidelines -will review findings of pathology report from eventual surgery to see if remnant I-131 ablation needed if malignancy diagnosed -briefly discussed process for I-131 such as low iodine diet and post-treatment precautions, if needed -also d/w her need to start LT4 after completi (more content not included)... [facility]06-19-2023 History of Present illness Narrative* Sudheer Mcpherson MD - 01/19/2023 2:32 PM EDT I have communicated my name and active licensure. The patient's identity and physical location wereverified at the time of this visit. Either the patient or their legal health and safety representative has been informed of the risks and benefits of -- and alternatives to -- treatment through a remote evaluation andconsents to proceed with the evaluation remotely. Ms. Linda is a 32 year old female referred by Dr Gregory for thyroid nodule, has h/o right thyroidectomy in 01/19 After second a couple years ago she had right thyroidectomy due to abnormal/inconclusive biopsy. Was admitted a few months ago for mono/strep c/b pericarditis, which led to imaging that could nodules on left thyroid. Had FNA on 12/08/22 that showed suspicion for PTC. Takes LT4 inappropriately/inconsistently: never on LT4 Energy loss: No Sleep disturbances: No Wt change: No BM irregularities: No Temp intolerance: sweaty all the time, since admission in 10/23 Sweats: Yes Skin changes: No Hair changes: falls out but nothing new Menses irregular: Yes, had IUD placed last summer and then no period for a year, then had a period last 2 months Tremor: No, but possibly has carpal tunnel Palpitations: No Exposure to contrast, kelp, supplements, MVI, Biotin: No Neck pain/swelling: No Dysphagia: No Dyspnea: No Voice change: No Radiation exposure to head/neck: No FamHx of thyroid disease: a couple maternal aunts had thyroid removed, no cancer that she knows of All other Review of Systems reviewed and are negative. No past medical history on file. No family history on file. No outpatient medications have been marked as taking for the 01/19/23 encounter (Appointment) with Sudheer Mcpherson MD. Lives with and 3 children (1.5yo, 4yo, 6yo), no tobacco or EtOH PE: There were no vitals taken for this visit. No data found for this vital: Wt Gen - NAD, comfortable, pleasant Eyes - No exophthalmos, No kathryn-orbital edema Neck - No visible goiter or nodules Skin - No visible skin dryness, no thinning or loss of lateral eyebrow hair Neuro - No visible hand tremor, alert/oriented and answering questions appropriately OSH Labs: 10/07/22 - TSH 2.27 FNA report 12/08/22: Thyroid, left nodule, fine-needle aspiration, ThinPrep and smear preparations: - Satisfactory for evaluation specimen. - Suspicious for papillary thyroid carcinoma [place] category V (TBS V). See comment. US Thyroid 10/23/22: IMPRESSION: TWO LEFT THYROID NODULES EXAM: Ultrasound Thyroid Please note that characterization of thyroid nodules is based on the ACR 2017 TI-RADS classification which provides guidelines regarding management of thyroid nodules on the basis of their ultrasound appearance. These are offered in an attempt to assist the referring physician in their decision process and help address the current over diagnosis of thyroid cancer. It should be noted that the [place] Preventative Services Task Force concludes that screening for thyroid cancerresults in harms that outweighed the benefits and recommends against screening for thyroid cancer in asymptomatic adults. RECOMMENDATIONS: TR1: Benign. No FNA required TR2: Not suspicious. No FNA required TR3: Greater than or equal to 1.5 cm, follow-up 1, 3, and 5 years. Greater than or equal to 2.5 cm: FNA TR 4: Greater than or equal to 1 cm, follow-up: 1, 2, 3, and 5 years. Greater than or equal to 1.5 cm: FNA. TR 5: Greater than or equal to 0.5 cm, annual follow-up for up to 5 years. Greater than or equal to 1 cm: FNA. CLINICAL HISTORY: hx of thyroid nodule COMPARISONS: None available. FINDINGS: Biplanar images were obtained. The right lobe measures status post right thyroidectomy. cm. The left lobe measures 5.2 x 1.8 x 2.1 cm. cm. The isthmus measures 0.3 cm Right thyroid lobe: Status post right thyroidectomy. No residual soft tissue mass in the right thyroid bed. Left thyroid lobe: Nodule #1: 1.5 x 0.9 cm mixed solid cystic nodule. Solid composition is relatively isoechoic. No associated echogenic foci. Margins smooth. Nodule is not tolerated than wide. TR 3 Report nodule Nodule #2: 6 mm hypoechoic nodule mid posterior pole of left thyroid lobe. No echogenic foci. Margins spine. Consistent with TR 4 nodule. Diagnoses and all orders for this visit: Papillary thyroid carcinoma (HCC) -FNA cytology suspicious for PTC which indicates 70% change of malignancy, would recommend completion thyroidectomy as per JEFFRY guidelines -will review findings of pathology report from eventual surgery to see if remnant I-131 ablation needed if malignancy diagnosed -briefly discussed process for I-131 such as low iodine diet and post-treatment precautions, if needed -also d/w her need to start LT4 after completion thyroidectomy -referral to endocrine surgery placed - CONSULT TO ENDOCRINE SURGERY; Future F/u 3 months The assessment and benefits/risks of the plan were discussed with the patient who expressed understanding and was agreeable to that which is noted above. This consult note is being shared with the referring provider via an electronic medical record [facility] noteNo assessment information availableK[facility] Work Phone: Evaluation note* Diagnosis Papillary thyroid carcinoma (HCC)- Primary Malignant neoplasm of thyroid gland documented in this encounter [facility]* Diagnosis Malignant neoplasm of thyroid gland (HCC)- Primary Malignant neoplasm of thyroid gland Papillary thyroid carcinoma (HCC) Malignant neoplasm of thyroid gland Papillary thyroid carcinoma (HCC) Malignant neoplasm of thyroid gland Malignant neoplasm of thyroid gland (HCC) Malignant neoplasm of thyroid gland documented in this encounter [facility] note* Diagnosis Malignant neoplasm of thyroid gland (HCC)- Primary Malignant neoplasm of thyroid gland Papillary thyroid carcinoma (HCC) Malignant neoplasm of thyroid gland Malignant neoplasm of thyroid gland (HCC) Malignant neoplasm of thyroid gland [facility] [place] [facility]* Diagnosis Preop examination- Primary Preoperative examination, unspecified Pericarditis, unspecified chronicity, unspecified type Attention deficit hyperactivity disorder (ADHD), unspecified ADHD type Anxiety Anxiety state, unspecified Obesity, unspecified classification, unspecified obesity type, unspecified whether serious comorbidity present Papillary thyroid carcinoma (HCC) Malignant neoplasm of thyroid gland Malignant neoplasm of thyroid gland (HCC) Malignant neoplasm of thyroid gland [facility] [place] [facility]* Diagnosis Papillary thyroid carcinoma (HCC)- Primary Malignant neoplasm of thyroid gland Papillary thyroid carcinoma (HCC) Malignant neoplasm of thyroid gland Malignant neoplasm of thyroid gland (HCC) Malignant neoplasm of thyroid gland [facility] [place] [facility]* Diagnosis Postoperative hypothyroidism- Primary Postsurgical hypothyroidism [facility] [place] [facility]* Diagnosis Postoperative hypothyroidism Postsurgical hypothyroidism [facility] [place] [facility]* Diagnosis Postoperative hypothyroidism Postsurgical hypothyroidism documented in this [facility] [place] [facility]* Diagnosis Ankle instability, left- Primary Verruca plantaris Plantar wart Neoplasm of uncertain behavior of skin Pain in left foot Pain in soft tissues of limb Benign neoplasm of unknown origin [facility] Diagnosis Ankle instability, left- Primary Nontraumatic rupture of posterior tibial tendon, left documented [facility]* Diagnosis Nontraumatic rupture of posterior tibial tendon, left- Primary Ankle instability, left documented in this encounter [facility]* Diagnosis Preop examination- Primary Preoperative examination, unspecified Pericarditis, unspecified chronicity, unspecified type Attention deficit hyperactivity disorder (ADHD), unspecified ADHD type Anxiety Anxiety state, unspecified Obesity, unspecified classification, unspecified obesity type, unspecified whether serious comorbidity present Postoperative hypothyroidism Postsurgical hypothyroidism documented [facility] this [facility] [place] [facility]* Diagnosis Ankle instability, left- Primary Nontraumatic rupture of posterior tibial tendon, left documented in this encounter [facility]* Diagnosis Well woman exam with routine gynecological exam Routine gynecological examination Screen for STD (sexually transmitted disease) Screening examination for venereal disease documented in this encounter [facility]* Diagnosis Ankle instability, left- Primary Right foot pain Pain in soft tissues of limb Left foot pain Pain in soft tissues of limb Sinus tarsi syndrome, left Arthritis of left ankle Other enthesopathy of left foot and ankle documented in this encounter [facility]* Diagnosis Ankle instability, left- Primary Nontraumatic rupture of posterior tibial tendon, left documented in this encounter [facility]* Diagnosis Onset Date Resolution Status Admit Date Acquired hypothyroidism acuteJanuary 2024 2:13pmAnxiety and depressionacuteJanuary 2024 2:13pm Obstructive sleep apneaacuteJanuary 2024 2:13pm [facility] Work Phone: Evaluation note* Diagnosis Ankle instability, left- Primary Nontraumatic rupture of posterior tibial tendon, left Contracture, ankle, left documented in this encounter [facility]* Diagnosis Nontraumatic rupture of posterior tibial tendon, left- Primary documented in this encounter [facility]* Diagnosis Nontraumatic rupture of posterior tibial tendon, left- Primary documented in this encounter [facility] Summary Purpose Family History No Family History Records Found Relationship Condition Age at Onset Recorded Date/T marley Not Specified No pertinent family history Unknown Advance Directives No Advanced Directives Records Found Advance Directive Response Recorded Date/ Time Advance Directives No September 02, 2018 10:56am Advance Directive Response Recorded Date/ Time Advance Directives No September 02, 2018 9:56am Reason for Referral SpecialtyDiagnoses / ProceduresReferred By ContactReferred To Contact Diagnoses Papillary thyroid carcinoma (HCC) Procedures CONSULT TO ENDOCRINE SURGERY OFFICE/OUTPATIENT [facility] 60-74 MINUTES Sudheer Mcpherson MD [address] [place] [address] [place] [address] Referral IDStatusReasonStart DateExpiration DateVisits RequestedVisits [id number] Review PCP Requested Referral /[id number] / ProceduresReferred By ContactReferred To Contact Diagnoses Ankle instability, left Procedures MR ankle left wo IV contrast Calderon Webber, DPM FACFAS [address] [facility] [place] [address] Referral IDStatusReasonStart DateExpiration DateVisits RequestedVisits [id number]/ Medications Administered Section Medication OrderMAR ActionAction DateDoseRateSite benzocaine 20% 2 [place] (TOPEX) 2 [place], TOPICAL, ONCE, 1 dose, On Thu03/03/23 at 0700, APPLY TO: throat - Pharmaceutical Waste: Aerosol - Given03/03/2023 10:20 AM EDT2 Sprays lidocaine viscous 2 % 10 mL (XYLOCAINE) 10 mL, ORAL, ONCE, 1 dose, On Thu03/03/23 at 0700 Given03/03/2023 10:20 AM EDT10 mL Chief Complaint and Reason for Visit Chief Complaint Admit Date G47.June 14, 2024 6:54pm Chief Complaint Admit Date G47.June 14, 2024 6:54pm G47.30 June 16, 2024 5:22pm G47.30 August 09, 2024 2: 13pm Reason for Visit Admit Date Acquired hypothyroidism August 09 2:13pm Anxiety and depression August 09, 2024 2:13pm Obstructive sleep apnea August 09 2:13pm Chief Complaint Admit Date G47.August 09, 2024 2: 13pm JALEEL/31-90 October 25, 2024 11: 35am Reason for Visit Admit Date Acquired hypothyroidism August 09 2:13pm Anxiety and depression August 09, 2024 2:13pm Attention deficit disorder August 09, 2024 2:13pm BMI 39.0-39.9,adult August 09, 2024 2: 13pm Obstructive sleep apnea August 09 2:13pm Acquired hypothyroidism October 25, 2024 11:35am Anxiety and depression October 25, 2024 11:35am Attention deficit disorder October 25, 025 11:35am BMI 39.0-39.9,adult October 25, 2024 11: 35am Obstructive sleep apnea October 25, 2024 11:35am Additional Source Comments INFORMATION SOURCE (unrecogn ized section and content) DATE CREATED AUTHOR 11/09/2022 [facility] DATE CREATED AUTHOR AUTHOR'S ORGANIZ ATION 03/24/2023 [facility] DATE CREATED AUTHOR AUTHOR'S ORGANIZ ATION 10/22/2023 [facility] DATE CREATED AUTHOR AUTHOR'S ORGANIZ ATION 07/14/2024 [facility] DATE CREATED AUTHOR AUTHOR'S ORGANIZ ATION 08/13/2024 [facility] DATE CREATED AUTHOR AUTHOR'S ORGANIZ ATION 11/24/[address] [facility] DATE CREATED AUTHOR AUTHOR'S ORGANIZ ATION 06/07/2025 [facility] Care Teams (unrecognized sec tion and content) Team Status: Inactive Member Role Status Dates Kemal Davis DO Attending Provider Active Team MemberRelationshipSpecialtyStart DateEnd Date Danielito Gregory DO [address] [place] [address] PCP - GeneralFamily Medicine12/17/22Team MemberRelationshipSpecialtyStart DateEnd Date Danielito Gregory DO [address] [place] [address] PCP - GeneralFamily Medicine12/17/22am MemberRelationshipSpecialtyStart DateEnd Date Danielito Gregory, DO [address] [place] [address] PCP - GeneralFamily Medicine12/17/22Team MemberRelationshipSpecialtyStart DateEnd Date Danielito Gregory, DO [address] [place] [address] PCP - GeneralFamily Medicine12/17/22Team MemberRelationshipSpecialtyStart DateEnd Date Danielito Gregory, [address] [place] [address] PCP - GeneralFamily Medicine12/17/22Team MemberRelationshipSpecialtyStart DateEnd Date Danielito Gregory, DO [address] [place] [address] PCP - Generalmily Medicine12/17/22Team MemberRelationshipSpecialtyStart DateEnd Date Danielito Gregory, [address] [place] [address] PCP - Generalmily Medicine12/17/22Team MemberRelationshipSpecialtyStart DateEnd Date Danielito Gregory, [address] [place] [address] [facility]/17/22Team MemberRelationshipSpecialtyStart DateEnd Date Danielito Gregory, [address] [place] [address] PCP - Generalmily Medicine12/17/22Team MemberRelationshipSpecialtyStart DateEnd Date Danielito Gregory MD [address] [place] [phone] PCP - Generalmily Medicine01/07/23Team MemberRelationshipSpecialtyStart DateEnd Date Danielito Gregory MD [address] [place] [phone] PCP - Generalmily Medicine01/07/23Team MemberRelationshipSpecialtyStart DateEnd Date Danielito Gregory MD [address] [place] [phone] PCP - [facility]01/07/23Team MemberRelationshipSpecialtyStart DateEnd Date Danielito Gregory MD [address] [place] [phone] PCP - [facility]01/07/23Team MemberRelationshipSpecialtyStart DateEnd Date Danielito Gregory MD [address] [place] [phone] PCP - [facility]01/07/23Team MemberRelationshipSpecialtyStart DateEnd Date Danielito Gregory MD [address] [place] [phone] PCP - [facility]01/07/23Team MemberRelationshipSpecialtyStart DateEnd Date Danielito Gregory DO [address] [place] [address] PCP - [facility]12/17/22 Team Status: Active Member Role Status Dates Danielito Gregory DO Primary Care Provider Active Team Status: Inactive Member Role Status Dates Danielito Gregory DO Primary Care Provide r, Referring Provider Active Start: June 14, 2024 End: June 14rachana Cates MDAtttiffany ProviderActiveStart: June 14, 2024 End: June 14, 2024Team MemberRelationshipSpecialtyStart DateEnd Date Danielito Gregory MD [address] [place] [phone] PCP - [facility]01/07/23Team MemberRelationshipSpecialtyStart DateEnd Date Danielito Gregory MD [address] [place] [address] PCP - [facility]01/07/23Team MemberRelationshipSpecialtyStart DateEnd Date Danielito Gregory MD [address] [place] [address] PCP - [facility]01/07/23Team MemberRelationshipSpecialtyStart End Date Danielito Gregory MD [address] [place] [phone] PCP - [facility]01/07/23Team MemberRelationshipSpecialtyStart End Date Danielito Gregory MD [address] [place] [address] PCP - [facility]01/07/23 Team Status: Active Member Role Status Dates Danielito Gregory DO Primary Care Provide r, Referring Provider Active Start: June 16, 2024 Que Cates MDAttending Provider, Other ProviderActiveStart: June 16, 2024 Team Status: Inactive Member Role Status Dates Que Cates MD Attending Provider Active S tart: August 09, 2024 End: August 09, 2024ElyYadiel Rosenthal Care Provider, Referring ProviderActiveStart: August 09, 2024 End: August 09, 2024 Team Status: Inactive Member Role Status Dates Danielito Gregory DO Primary Care Provider Active Start: October 25, 2024 End: October 25, 2024Peggshobha Hugo , NPAttending ProviderActiveStart: October 25, 2024 End: October 25, 2024Team MemberRelationshipSpecialtyStart DateEnd Date Danielito Gregory MD [address] [place] [phone] PCP - [facility]01/07/23Team MemberRelationshipSpecialtyStart DateEnd Date Danielito Gregory MD [address] [place] [address] PCP - [facility]01/07/23 Goals (unrecognized section and content) Goals may be documented in a n alternate sectionGoals may be documented in an alternate sectionGoals may be documented in an alternate sectionGoals may be documented in an alternate section Source Comments (unrecognize d section and content) In the event this informatio n is protected by the Federal Confidentiality of Alcohol and Drug Abuse Patient Records regulations: The Federal rules restrict any use of the information to criminally investigate or prosecute any alcohol or drug abuse patient.[facility] the event this information is protected by the Federal Confidentiality of Alcohol and Drug Abuse Patient Records regulations: The Federal rules restrict any use of the information to criminally investigate or prosecute any alcohol or drug abuse patient.[facility] the event this information is protected by the Federal Confidentiality of Alcohol and Drug Abuse Patient Records regulations: The Federal rules restrict any use of the information to criminally investigate or prosecute any alcohol or drug abuse patient.[facility] the event this information is protected by the Federal Confidentiality of Alcohol and Drug Abuse Patient Records regulations: The Federal rules restrict any use of the information to criminally investigate or prosecute any alcohol or drug abuse patient.[facility] the event this information is protected by the Federal Confidentiality of Alcohol and Drug Abuse Patient Records regulations: The Federal rules restrict any use of the information to criminally investigate or prosecute any alcohol or drug abuse patient.[facility] the event this information is protected by the Federal Confidentiality of Alcohol and Drug Abuse Patient Records regulations: The Federal rules restrict any use of the information to criminally investigate or prosecute any alcohol or drug abuse patient.[facility] the event this information is protected by the Federal Confidentiality of Alcohol and Drug Abuse Patient Records regulations: The Federal rules restrict any use of the information to criminally investigate or prosecute any alcohol or drug abuse patient.[facility] the event this information is protected by the Federal Confidentiality of Alcohol and Drug Abuse Patient Records regulations: The Federal rules restrict any use of the information to criminally investigate or prosecute any alcohol or drug abuse patient.[facility]In the event this information is protected by the Federal Confidentiality of Alcohol and Drug Abuse Patient Records regulations: The Federal rules restrict any use of the information to criminally investigate or prosecute any alcohol or drug abuse patient.[facility] EastIn the event this information is protected by the Federal Confidentiality of Alcohol and Drug Abuse Patient Records regulations: The Federal rules restrict any use of the information to criminally investigate or prosecute any alcohol or drug abuse patient.[facility] the event this information is protected by the Federal Confidentiality of Alcohol and Drug Abuse Patient Records regulations: The Federal rules restrict any use of the information to criminally investigate or prosecute any alcohol or drug abuse patient.[facility]In the event this information is protected by the Federal Confidentiality of Alcohol and Drug Abuse Patient Records regulations: The Federal rules restrict any use of the information to criminally investigate or prosecute any alcohol or drug abuse patient.[facility] EastIn the event this information is protected by the Federal Confidentiality of Alcohol and Drug Abuse Patient Records regulations: The Federal rules restrict any use of the information to criminally investigate or prosecute any alcohol or drug abuse patient.[facility] Reason for Visit (unrecogniz ed section and content) ReasonCommentsThyroid CancerReasonCommentsConsultFACE SHEETReasonComments Received Outside Medical RecordsINDEXED OP NOTE, PATH REPORTS, THYROID US REPORT,AND LABSSpecialtyDiagnoses / ProceduresReferred By ContactReferred To Contact Diagnoses Papillary thyroid carcinoma (HCC) Procedures CONSULT TO ENDOCRINE SURGERY OFFICE/OUTPATIENT [facility] 60-74 MINUTES Sudheer Mcpherson MD [address] [place] [address] [place] [address] Referral IDStatusReasonStart DateExpiration DateVisits RequestedVisits [id number] PCP Requested Referral /[id number] ExamReasonCommentsAnesthesia Consult Pre-Op VisitReasonCommentsPost OpReasonCommentsThyroid ProblemReasonOnset Date CommentsRefill Rmdmhhf68/10/2024ReasonOnset DateCommentsRefill Mexsiqm2903/10/2024 ReasonCommentsAnkle PainF/U LT ankle sinus tarsi inj [id number] DateComments Foot Rcudqebbe97/25/2024easonCommentsAnkle PainF/U MRI LT ankleReasonOnset Date CommentsRefill Zzjfusa05/08/2024ReasonCommentsConsent Or InstructionsSurgery consent for LT tendonReasonCommentsFoot/ankle Post-opWk 1 post opReasonComments Gynecologic ExamReasonCommentsFoot PainRT foot pain, hard to walkAnkle PainLT ankle pain - previous fractureReasonCommentsFoot/ankle Post-opWK 3 post opReason CommentsFoot/ankle Post-opWeek 4 post opReasonCommentsFoot/ankle Post-opWK 7 post opReasonCommentsAnkle PainF/U LT ankle after surgery FOR RECORDS PERTAINING TO PATIENTS WHO ARE OR HAVE BEEN ENROLLED IN A CHEMICAL DEPENDENCY/SUBSTANCEABUSE PROGRAM, SOME INFORMATION MAY BE OMITTED. This clinical summary was aggregated from multiple sources. Caution should be exercised in using it in the provision of clinical care. This summary normalizes information from multiple sources, and as a consequence, information in this document may materially change the coding, format and clinical context of patient data. In addition, data may be omitted in some cases. CLINICAL DECISIONS SHOULD BE BASED ON THE PRIMARY CLINICAL RECORDS. [facility] [employer] provides no warranty or guarantee of the accuracy or completeness of information in this document.
[2025-06-23 16:13] LABS: Age Gdln ACOG Testing Note (.); IGP, Aptima HPV, rfx 16/18,45 Note (.)
== END 2025-06-20 19:15 | disposition home or self-care (01) ==
LOC: LAB 19:14
PROVIDERS: Visit Provider Physician Assistant
DX: Z01.419 Encounter for gynecological examination (general) (routine) without abnormal findings (principal)
CPT/HCPCS: 87624; 88175